=== PATIENT | male | born 1940 | race Caucasian/White ===

== ENCOUNTER 2019-12-01 07:40 | Outpatient (CLI) | payer MEDICARE, OTHER, SELFPAY ==
--- NOTE | 2019-12-01 08:05 | MR_ITS ---
WS: [id number] MRI LUMBAR SPINE NONCONTRAST HISTORY: LOW BACK PAIN COMPARISON: CT abdomen and pelvis 04/26/2016 TECHNIQUE: Sagittal and axial multisequence imaging is submitted. There are 5 nonrib-bearing lumbar vertebral bodies. This correlates with the prior CT from 04/26/2016. Therefore, there may only be 11th thoracic vertebral bodies. There is a chronic fracture previously described at the L1 level. This same numbering pattern will be utilized today. Severe degenerative changes throughout the cervical, thoracic and lumbar spine. C3 anterolisthesis by 4 mm. Component of central cervical stenosis at the C4 level. There is thoracolumbar scoliosis at mu ltiple levels. Advanced degenerative changes throughout the spine. LEFT convex curvature upper thorac ic spine. Mild anterior wedging of T6. Severe chronic compression fracture involving the L1 vertebral body. Superior endplate of T12 is inva ginating into the superior endplate of L1. Biconcave endplates with a vertical fracture through the c entral vertebral body. Retropulsion and posterior bulging by 4.4 mm of the posterior L1 vertebral bod y. L2 retrolisthesis by 4.4 mm and L4 anterolisthesis by 3.1 mm. Severe disc space narrowing and desiccation throughout the lumbar spine. No acute fracture or marrow edema. Conus terminates normally at L1-2 disc level. L1-L2: Posterior bulging of the L1 vertebral body from the remote fracture. No significant compromise upon the thecal sac or conus. Facet joint arthropathy with disc bulging and retropulsion causing mil d bilateral foraminal stenosis. L2-L3: Annular disc bulging and osteophytic ridging. Disc osteophyte encroaching upon the ventral the reyna sac, subarticular recesses and foramen. Mild central and bilateral foraminal stenosis. Moderate s ubarticular recess narrowing. L3-L4: Mild ligamentum flavum disease. Annular disc bulging and small osteophytes. Very mild encroach ment upon the subarticular recesses. L4-L5: Severe facet joint arthritis and ligamentum flavum arthropathy. Annular disc bulging and osteo phytosis. Focal central disc protrusion. Mild central and bilateral foraminal stenosis with moderate subarticular recess stenosis. L5-S1: Annular disc bulging and osteophytic ridging. Small RIGHT paracentral disc protrusion. There i s moderate bilateral foraminal stenosis and subarticular recess stenosis. Infrarenal aortic aneurysm of 3.5 cm. Prior abdominal aneurysm repair. Aneurysm is measuring smaller in size than on the prior study of 04/26/2016. MR/MR lumbar spine wo con* [id number] IMPRESSION: 1. Severe degenerative changes of the cervical, thoracic and lumbar spines. 2. 5 nonrib-bearing lumbar vertebral bodies are identified. This numbering pat tern will be utilized today. 3. Biconcave burst fracture at L1 is chronic. Retropulsion of posterior verteb ral body by 4.4 mm. 4. Multilevel stenoses due to combination of disc and facet disease and osteop hytic ridging. 5. Moderate subarticular recess stenosis at L2-3 and L4-5. 6. Moderate bilateral foraminal subarticular recess stenosis at L5-S1. 7. Mild central and bilateral foraminal stenosis at L2-3 and L4-5 and mild jane ateral foraminal stenosis at L1-2.
--- NOTE | 2019-12-01 08:12 | XR_ITS ---
WS: [id number] LATERAL LUMBAR SPINE: 3 view. Lateral radiographs are performed in upright neutral, flexion and extension to the patient's toleranc e. HISTORY: LOW BACK PAIN COMPARISON: None available. Advanced degenerative changes throughout the lumbar spine. Biconcave fracture in the mid vertebral julio dy of L1 with slight posterior bulging. Posterior bulging better seen on the MRI. L1 retrolisthesis b y 5.2 mm. L4 anterolisthesis by 7.7 mm. L4: Mild instability with flexion and extension. During flexion 10.6 mm anterolisthesis in extension 6.2 mm anterolisthesis. No additional instability. Aortic and iliac artery stent grafts. XR/XR lumbar spine f/e only [id number] IMPRESSION: 1. Advanced degenerative changes throughout the lumbar spine. 2. L4 anterolisthesis by 7.7 mm with flexion and extension instability. 3. Slight retropulsion L1 with no instability. 4. Chronic burst fracture of L1.
== END 2019-12-01 07:41 | disposition home or self-care (01) ==
LOC: RADWPI 07:46
PROVIDERS: Family Provider Family Medicine; PCP Family Medicine; Visit Provider Anesthesiology Pain Medicine
DX: M54.5 Low back pain (principal); S32.011A Stable burst fracture of first lumbar vertebra, initial encounter for closed fracture; X58.XXXA Exposure to other specified factors, initial encounter; M48.061 Spinal stenosis, lumbar region without neurogenic claudication; M25.78 Osteophyte, vertebrae; M51.36 Other intervertebral disc degeneration, lumbar region
CPT/HCPCS: 72120; 72148

== ENCOUNTER 2021-03-07 13:38 | Inpatient (IN) | payer MEDICARE, OTHER, SELFPAY ==
[2021-03-07] VITALS (10 sets, daily range): BP systolic 102–143; BP diastolic 57–95; PULSE 80–132; RESP 18–21; TEMP 36.3–36.4; O2SAT 95–99; BMI 26.6
--- NOTE | 2021-03-07 14:19 | XRR_ITS ---
PROCEDURE INFORMATION: Exam: XR Left Hip Exam date and time: 03/07/2021 2:19 PM Age: 80 years old Clinical indication: Pain and injury or trauma; Fall; Blunt trauma (contusions or hematomas); Hip pain; Left hip; Injury date: 03/07/2012; Additional info: Fall, pain TECHNIQUE: Imaging protocol: XR Left hip. Views: 2 or 3 views hip with pelvis when performed. COMPARISON: CT abdomen pelvis w con* [id number] 04/26/2016 9:10 AM FINDINGS: Bones/joints: There is no fracture or dislocation of the left hip. There is no fracture of the visible left hemipelvis. There are mild degenerative changes of the hip. Soft tissues: Unremarkable. Vasculature: There are vascular surgical clips and an aortoiliac graft. XR/XR hip LT 2-3V wo/w pel* [id number] IMPRESSION: No fracture
--- NOTE | 2021-03-07 14:19 | XRR_ITS ---
PROCEDURE INFORMATION: Exam: XR Chest Exam date and time: 03/07/2021 2:19 PM Age: 80 years old Clinical indication: Injury or trauma; Fall; Shortness of breath; Blunt trauma (contusions or hematomas); Injury date: 03/07/21; Additional info: SOB TECHNIQUE: Imaging protocol: XR of the chest. Views: 1 view. COMPARISON: CR XR ribs LT mn 3V w CXR1V [id number] 03/03/2021 3:45 PM FINDINGS: Lungs: Unremarkable. No consolidation. Pleural spaces: Unremarkable. No pleural effusion. No pneumothorax. Heart/Mediastinum: Unremarkable. No cardiomegaly. Vasculature: The aorta is slightly tortuous. Bones/joints: The left rib fractures reported on rib x-rays are not visualized. XR/XR chest 1V portable [id number] IMPRESSION: No acute findings
--- NOTE | 2021-03-07 14:19 | XRR_ITS ---
PROCEDURE INFORMATION: Exam: XR Left Ribs Exam date and time: 03/07/2021 2:19 PM Age: 80 years old Clinical indication: Pain and injury or trauma; Fall; Rib area, left side; Blunt trauma; Chest wall pain; Injury date: 03/07/21; Additional info: Fall, fractures TECHNIQUE: Imaging protocol: XR Left ribs. Views: 2 views. COMPARISON: CR XR ribs LT mn 3V w CXR1V [id number] 03/03/2021 3:45 PM FINDINGS: Bones/joints: There are fractures of the left 4th to 7th ribs laterally. There is up to 3 mm of displacement. There is a chronic L1 compression fracture. Soft tissues: Normal. XR/XR ribs LT 2V* [id number] IMPRESSION: Acute fractures of the left 4th to 7th ribs
--- NOTE | 2021-03-07 14:20 | ECG_ITS ---
[facility] ED Test Date: 2021-03-07 Pat Name: Brandon Gracia Department: Room: Gender: Male Private Branch Exchange Operator: PREMA : 1940 Requested By: Mayur Montaño Order Number: [id number] Roberta MD: Marina Horne M.D. Measurements Intervals [place] Rate: 92 P: [place]: QRS: -58 QRSD: 102 T: 50 QT: 343 QTc: 426 Interpretive Statements ATRIAL FIBRILLATION LOW QRS VOLTAGE IN EXTREMITY LEADS [QRS DEFLECTION < 0.5 mV IN LIMB LEADS] SEPTAL MYOCARDIAL INFARCTION [40+ ms Q WAVE IN V1/V2], PROBABLY OLD INFERIOR MYOCARDIAL INFARCTION [40+ ms Q WAVE AND/OR ST/T ABNORMALITY IN II/aVF], PROBABLY OLD No previous ECG available for comparison Electronically Signed On 03-10-2021 7:46:54 CDT by Marina Horne M.D. [id number] f
--- NOTE | 2021-03-07 14:23 | ED_ITS ---
HPI - Fall General: Chief Complaint: ER Hold Stated Complaint: FALL ON SUNDAY Time Seen by Provider: 03/07/21 14:00 History of Present Illness: HPI Narrative: Mr. Gracia is an 80-year-old gentleman with significant past medical history of hypertension, diabetes, hyperlipidemia who presents emergency department due to left rib pain and shortness of breath. He has been at his baseline health and had a mechanical fall while attempting to walk down the ramp of an airplane on 03/03. Immediately had left-sided pain. No head strike or loss of consciousness. He denies preceding chest pain, shortness of breath, lightheadedness, dizziness. Fall appears to be strictly mechanical. He was seen at an urgent care and diagnosed with rib fractures. He was not sent home with prescriptions at that time. He subsequently had another mechanical fall where a rolling chair slipped out from behind him, once again no head strike though he did land on his left side and again had pain and left hip pain. He has been able to ambulate but has significant discomfort and overall worsening shortness of breath. He has been trying to sleep in the chair and now has developed leg swelling. Left-sided chest pain is moderate in intensity worse with deep breaths. There is some radiation to the midsternal region. He has associated shortness of breath. He has tried [id number] medications without significant relief. No infectious symptoms reported. No other specific changes in health, exacerbating, or alleviating factors identified Review of Systems General: Reports: 10 or more systems reviewed and unremarkable except in HPI and below Narrative: CONSTITUTIONAL: denies fever, fatigue, weakness EYES - denies pain, denies loss of vision EARS - denies ear issues. NOSE - denies congestion or rhinorrhea. THROAT - denies sore throat or difficulty swallowing. CARDIOVASCULAR -sharp chest pain. No palpitations or frequent chest pain in the past. RESPIRATORY -shortness of breath. No cough GASTROINTESTINAL - denies abdominal pain, no nausea vomiting, no changes in bowel habits GENITOURINARY - denies dysuria or urinary frequency MUSCULOSKELETAL-hip and left rib pain as noted in HPI SKIN - denies rashes or new changed skin lesions NEUROLOGIC - denies focal weakness or sensory changes HEMATOLOGIC/LYMPHATIC - denies easy bruising or lymphadenopathy. [facility] ED [facility]: Medical History (Updated 03/07/21 @ 21:43 by Rosario Nuñez MD) Diabetes mellitus Type 2 Hypertension Neuropathy, idiopathic Primary osteoarthritis of right knee Surgical History (Updated 03/07/21 @ 21:43 by Rosario Nuñez MD) History of AAA (abdominal aortic aneurysm) repair Hx of cholecystectomy Hx of eye surgery right S/P right knee arthroscopy twice by Family History Denies family history of Diabetes CAD (coronary artery disease) Clotting disorder Dementia Hyperlipidemia Psychiatric illness Chronic kidney disease (CKD) Suicide Anesthesia complication Bleeding disorder Family history of premature coronary artery disease Lung disease Cancer Hypertension Stroke Social History Smoking and tobacco status: former smoker Quit status (tobacco): has quit using tobacco Year quit tobacco: 3 years ago;2017 Alcohol intake: never Physical Exam Narrative: EXAM NARRATIVE: GENERAL/CONSTITUTIONAL - well-appearing. No acute distress. Eyes - PERRL, no conjunctival injection ENMT - Atraumatic external nose and ears. Moist mucous membranes NECK - supple. trachea midline CARDIOVASCULAR - regular rate and rhythm. RESPIRATORY -clear to auscultation bilaterally. No retractions or accessory muscle use. CHEST?tenderness palpation without obvious crepitus of the left lateral rib cage ABDOMEN/GI - Nontender/Nondistended. No tenderness to percussion or evidence of peritonitis MSK - Extremities without obvious deformity or tenderness to palpation SKIN - Warm, Dry NEURO - alert and appropriately oriented. strength and sensation intact. Moves all extremities equally. PSYCH - Appropriate mood and affect Course ED course: - Patient was seen and evaluated by me at bedside - Patient placed on cardiac monitors, IV access obtained - Initial evaluation notable for no acute distress, nontoxic appearance. Mild tenderness palpation without definitive crepitus over the left lateral ribs. Patient does have deep breath pain. - Labs notable for minimal leukocytosis, microcytic anemia. Significant metabolic derangements of unclear etiology are present, patient denies any history significant changes in intake or any GI symptoms. - Imaging notable for rib fractures - Upon serial reexamination after treatment the patient was noted to be significantly more ill-appearing. He became tachycardic and at that time rhythm seem to be regular. Given metabolic abnormalities and new ill appearance additional imaging/testing was ordered. - CTA negative for pulmonary realism or obvious lobar consolidation. - The patient subsequently was found to have intermittent atrial fibrillation captured on EKG. He denies history of similar. - Based on patient history, evaluation, labs, and imaging as interpreted the most likely cause of the patient's condition is multiple rib fractures secondary to mechanical trauma, new onset atrial fibrillation intermittent, and electrolyte abnormalities of unclear etiology - The results of ED evaluation were discussed with the patient including plan for admission due to requirement for level of care not available if discharged to prevent significant worsening/deterioration. - Admitting service was contacted and Dr Nuñez with internal medicine hospitalist agreed to admit the patient - Patient was admitted without further deterioration or significant events. Vital Signs: Vital signs: Vital Signs Temperature 97.4 F L 03/07/21 22:25 Pulse Rate 128 H 03/07/21 23:32 Respiratory Rate 21 H 03/07/21 23:26 Blood Pressure 118/95 03/07/21 22:25 Pulse Oximetry 95 03/07/21 23:26 MDM - Fall Medical Records: Attestation: I reviewed the patient's medical records. Lab Data: Attestation: I reviewed the patient's lab results. Labs: Lab Results 03/07/21 03/07/21 03/07/21 Range/Units 13:17 13:17 13:17 WBC 11.2 H (4.0-10.0) 10^3/ uL RBC 4.60 (4.1-5.3) 10^6/u L Hgb 11.2 L (11.7-16.6) g/dL Hct 35.5 L (42.0-52.0) % MCV 77.2 L (80-94) fL MCH 24.3 L (28.0-34.0) pg MCHC 31.5 (30.0-36.0) g/dL RDW 20.0 H (12.1-15.1) % Plt Count 292 (130-400) 10^3/c mm MPV 11.0 H (7.4-10.4) fL Neut % (Auto) 80.2 % Lymph % (Auto) 11.3 % Arthur % (Auto) 6.3 % Eos % (Auto) 0.7 % Baso % (Auto) 0.6 % Neut # (Auto) 8.97 H (1.8-7.7) 10^3/u L Lymph # (Auto) 1.3 (0.8-4.8) 10^3/u L Arthur # (Auto) 0.7 (0.2-0.9) 10^3/u L Eos # (Auto) 0.1 (0.0-0.8) 10^3/u L Baso # (Auto) 0.1 (0.0-0.1) 10^3/u L Nucleated RBC % (a uto) 0 % Nucleated RBCs # 0.0 /100WBC D-Dimer (0-0.59) ug/mIFE U Sodium 140 (136-145) mmol/L Potassium 5.2 H (3.5-5.1) mmol/L Chloride 107 (98-107) mmol/L Carbon Dioxide 13 L (22-29) mmol/L Anion Gap 25.2 H (5-19) BUN 71 H (8-23) mg/dL Creatinine 1.4 H (0.7-1.2) mg/dL GFR Calculation Not Reportable Glucose 112 (65-115) mg/dL Calculated Osmolal ity 312 H (285-295) mOsm/k g Lactate (0.5-2.2) mmol/L Calcium 9.3 (8.5-10.5) mg/dL Total Bilirubin 0.3 (0.15-1.2) mg/dL AST 16 (0-40) U/L ALT 26 (0-41) U/L Alkaline Phosphata se 92 (40-130) IU/L Troponin T Baselin e 23 H (0-15) ng/L Troponin T 120 Min [place] (0-15) ng/L Delta Troponin T (0-10) ABS# NT-Pro-B Natriuret Pep (0-450) pg/mL Total Protein 6.4 L (6.6-8.7) g/dL Albumin 4.0 (3.5-5.2) g/dL Globulin 2.4 (1.3-4.6) g/dL Procalcitonin (0-0.5) ng/mL SARS-CoV-2 Ag (Rap id) (Negative) 03/07/21 03/07/21 03/07/21 Range/Units 13:17 16:12 16:12 WBC (4.0-10.0) 10^3/ uL RBC (4.1-5.3) 10^6/u L Hgb (11.7-16.6) g/dL Hct (42.0-52.0) % MCV (80-94) fL MCH (28.0-34.0) pg MCHC (30.0-36.0) g/dL RDW (12.1-15.1) % Plt Count (130-400) 10^3/c mm MPV (7.4-10.4) fL Neut % (Auto) % Lymph % (Auto) % Arthur % (Auto) % Eos % (Auto) % Baso % (Auto) % Neut # (Auto) (1.8-7.7) 10^3/u L Lymph # (Auto) (0.8-4.8) 10^3/u L Arthur # (Auto) (0.2-0.9) 10^3/u L Eos # (Auto) (0.0-0.8) 10^3/u L Baso # (Auto) (0.0-0.1) 10^3/u L Nucleated RBC % (a uto) % Nucleated RBCs # /100WBC D-Dimer (0-0.59) ug/mIFE U Sodium (136-145) mmol/L Potassium (3.5-5.1) mmol/L Chloride (98-107) mmol/L Carbon Dioxide (22-29) mmol/L Anion Gap (5-19) BUN (8-23) mg/dL Creatinine (0.7-1.2) mg/dL GFR Calculation Glucose (65-115) mg/dL Calculated Osmolal ity (285-295) mOsm/k g Lactate (0.5-2.2) mmol/L Calcium (8.5-10.5) mg/dL Total Bilirubin (0.15-1.2) mg/dL AST (0-40) U/L ALT (0-41) U/L Alkaline Phosphata se (40-130) IU/L Troponin T Baselin e (0-15) ng/L Troponin T 120 Min [place] 22.27 H (0-15) ng/L Delta Troponin T -0.73 L (0-10) ABS# NT-Pro-B Natriuret Pep 747 H (0-450) pg/mL Total Protein (6.6-8.7) g/dL Albumin (3.5-5.2) g/dL Globulin (1.3-4.6) g/dL Procalcitonin 0.16 (0-0.5) ng/mL SARS-CoV-2 Ag (Rap id) (Negative) 03/07/21 03/07/21 03/07/21 Range/Units 17:30 17:35 17:35 WBC (4.0-10.0) 10^3/ uL RBC (4.1-5.3) 10^6/u L Hgb (11.7-16.6) g/dL Hct (42.0-52.0) % MCV (80-94) fL MCH (28.0-34.0) pg MCHC (30.0-36.0) g/dL RDW (12.1-15.1) % Plt Count (130-400) 10^3/c mm MPV (7.4-10.4) fL Neut % (Auto) % Lymph % (Auto) % Arthur % (Auto) % Eos % (Auto) % Baso % (Auto) % Neut # (Auto) (1.8-7.7) 10^3/u L Lymph # (Auto) (0.8-4.8) 10^3/u L Arthur # (Auto) (0.2-0.9) 10^3/u L Eos # (Auto) (0.0-0.8) 10^3/u L Baso # (Auto) (0.0-0.1) 10^3/u L Nucleated RBC % (a uto) % Nucleated RBCs # /100WBC D-Dimer 1.26 H (0-0.59) ug/mIFE U Sodium (136-145) mmol/L Potassium (3.5-5.1) mmol/L Chloride (98-107) mmol/L Carbon Dioxide (22-29) mmol/L Anion Gap (5-19) BUN (8-23) mg/dL Creatinine (0.7-1.2) mg/dL GFR Calculation Glucose (65-115) mg/dL Calculated Osmolal ity (285-295) mOsm/k g Lactate 1.0 (0.5-2.2) mmol/L Calcium (8.5-10.5) mg/dL Total Bilirubin (0.15-1.2) mg/dL AST (0-40) U/L ALT (0-41) U/L Alkaline Phosphata se (40-130) IU/L Troponin T Baselin e (0-15) ng/L Troponin T 120 Min [place] (0-15) ng/L Delta Troponin T (0-10) ABS# NT-Pro-B Natriuret Pep (0-450) pg/mL Total Protein (6.6-8.7) g/dL Albumin (3.5-5.2) g/dL Globulin (1.3-4.6) g/dL Procalcitonin (0-0.5) ng/mL SARS-CoV-2 Ag (Rap id) Negative (Negative) EKG Data^: EKG 1: EKG interpretation date: 03/07/21 EKG interpretation time: 14:39 Prior EKG tracings: not available for review Ischemic changes: non-specific ST-T wave changes Interpretation: Twelve-lead EKG shows a irregular rhythm at a rate of 92 Due to irregular rhythm TN interval not available Mild left axis deviation Interpretation: Atrial fibrillation or sinus arrhythmia EKG 2: Attestation: I personally reviewed and interpreted this EKG as follows: EKG interpretation date: 03/07/21 EKG interpretation time: 17:55 Prior EKG tracings: available for review Interpretation: Twelve-lead EKG shows a regular sinus rhythm with limited interpretation secondary to baseline TN interval varies though calculated at 223 Left axis deviation Interpretation: Sinus rhythm with prolonged TN interval. EKG 3: Attestation: I personally reviewed and interpreted this EKG as follows: EKG interpretation date: 03/07/21 EKG interpretation time: 19:08 Prior EKG tracings: available for review Ischemic changes: non-specific ST-T wave changes Interpretation: Twelve-lead EKG shows an irregular rhythm at a rate of 122 and atrial fibrillation TN interval not calculated secondary to rhythm Left axis deviation. Interpretation: Atrial fibrillation Discharge Plan Discharge Patient Disposition: Admitted As Inpatient Admit Provider: Rosario Nuñez Clinical Impression: Multiple rib fractures, Abnormal blood electrolyte level, Atrial fibrillation, transient Condition: Stable Coding Level of Care Code ED Printed [employer] Boards Stripper Etcher for Chg Fwd
[2021-03-07] MEDS: acetaminophen 325 mg Tablet 650 MG PO (14:41)
[2021-03-07] MEDS: lidocaine 5% Patch 1 PATCH TOPICAL (14:41)
[2021-03-07 15:30] LABS: Basophils # 0.1 10^3/uL (0.0-0.1); Basophils % 0.6 %; Eosinophils # 0.1 10^3/uL (0.0-0.8); Eosinophils % 0.7 %; Hematocrit 35.5 % (42.0-52.0); Hemoglobin 11.2 g/dL (11.7-16.6); Lymphocytes # 1.3 10^3/uL (0.8-4.8); Lymphocytes % 11.3 %; Mean Corpuscular HGB Conc 31.5 g/dL (30.0-36.0); Mean Corpuscular Hemoglobin 24.3 pg (28.0-34.0); Mean Corpuscular Volume 77.2 fL (80-94); Monocytes # 0.7 10^3/uL (0.2-0.9); Monocytes % 6.3 %; Neutrophils # 8.97 10^3/uL (1.8-7.7); Neutrophils % 80.2 %; Nucleated Red Blood Cells % 0 %; Platelet Count 292 10^3/cmm (130-400); White Blood Count 11.2 10^3/uL (4.0-10.0)
[2021-03-07 15:34] LABS: Alanine Aminotransferase 26 U/L (0-41); Alkaline Phosphatase 92 IU/L (40-130); Aspartate Amino Transferase 16 U/L (0-40); Blood Urea Nitrogen 71 mg/dL (8-23); Calcium 9.3 mg/dL (8.5-10.5); Carbon Dioxide 13 mmol/L (22-29); Chloride 107 mmol/L (98-107); Globulin 2.4 g/dL (1.3-4.6); Glucose 112 mg/dL (65-115); Total Bilirubin 0.3 mg/dL (0.15-1.2); Total Protein 6.4 g/dL (6.6-8.7); Troponin(5th) Baseline 23 ng/L (0-15)
[2021-03-07 15:39] LABS: Anion Gap 25.2 (5-19); Osmolality Calculated 312 mOsm/kg (285-295); Potassium 5.2 mmol/L (3.5-5.1)
[2021-03-07 15:55] LABS: Sodium 140 mmol/L (136-145)
--- NOTE | 2021-03-07 16:20 | ECG_ITS ---
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 Measurements Intervals [place] Rate: 121 P: [place]: QRS: -52 QRSD: 100 T: 62 QT: 305 QTc: 434 Interpretive Statements ATRIAL FIBRILLATION WITH RAPID VENTRICULAR RESPONSE MARKED LEFT AXIS DEVIATION [QRS AXIS < -30] SEPTAL MYOCARDIAL INFARCTION [40+ ms Q WAVE IN V1/V2], OF INDETERMINATE AGE Compared to ECG 03/07/2021 17:44:47 Left-axis deviation now present Myocardial infarct finding now present Sinus rhythm no longer present First degree AV block no longer present Electronically Signed On 03-10-2021 10:06:16 CDT by Marina Horne M.D. [id number]
[2021-03-07 16:55] LABS: Troponin 5 2HR 22.27 ng/L (0-15)
[2021-03-07 16:58] LABS: Troponin 5 2HR Delta -0.73 ABS# (0-10)
[2021-03-07 17:23] LABS: NT Pro B Type Natriuretic Pept 747 pg/mL (0-450)
[2021-03-07] MEDS: sodium chloride 0.9% 1,000 ML 125 ML IV (17:26)
[2021-03-07] MEDS: morphine 4 mg/mL SDV 1 mL IV (17:26)
--- NOTE | 2021-03-07 17:35 | CTR_ITS ---
PROCEDURE INFORMATION: Exam: CTA Chest With Contrast Exam date and time: 03/07/2021 5:35 PM Age: 80 years old Clinical indication: Cough and shortness of breath; Additional info: Trauma on , shortness of breath, tachycardia TECHNIQUE: Imaging protocol: Computed tomographic angiography of the chest with contrast. 3D rendering (Not supervised by radiologist): MIP and/or 3D reconstructed images were created by the technologist. Radiation optimization: All CT scans at this facility use at least one of these dose optimization techniques: automated exposure control; mA and/or kV adjustment per patient size (includes targeted exams where dose is matched to clinical indication); or iterative reconstruction. Contrast material: VISI 320; Contrast volume: 75 ml; Contrast route: INTRAVENOUS (IV); COMPARISON: CR XR chest 1V portable [id number] 03/07/2021 2:55 PM RADIATION DOSE METRICS: Total DLP (mGy-cm): 588.85 FINDINGS: Pulmonary arteries: No evidence of pulmonary artery emboli. Aorta: No evidence of thoracic aortic aneurysm or dissection. Thyroid: Moderate thyromegaly. Lungs: There is centrilobular emphysema. No lung consolidation or contusion. Pleural spaces: No pneumothorax. Heart: Unremarkable. No cardiomegaly. No pericardial effusion. Mediastinal space: No pneumomediastinum. No evidence of mediastinal hematoma. Lymph nodes: Unremarkable. No enlarged lymph nodes. Bones/joints: There are fractures of the left 4th, 5th and 6th ribs anteriorly laterally. There is a severe chronic compression fracture of L1. There is mild anterior compression of T7 which also appears chronic. No evidence to indicate acute compression fracture. Soft tissues: Unremarkable. CT/CT angio chest prot [id number] IMPRESSION: 1. Acute fractures of the left 4th to 6th ribs anteriorly laterally. 2. No intrathoracic injury Radiation Dose CTDIVOL = (mGy): DLP = 588.85 (mGy-cm)
[2021-03-07 18:04] LABS: Procalcitonin 0.16 ng/mL (0-0.5)
[2021-03-07 18:15] LABS: SARS Covid-2 Antigen Negative (Negative)
[2021-03-07 18:21] LABS: D Dimer 1.26 ug/mIFEU (0-0.59)
[2021-03-07] MEDS: iodixanol 320 mg/mL 100mL Btl IV (18:29)
--- NOTE | 2021-03-07 21:41 | CTR_ITS ---
PROCEDURE INFORMATION: Exam: CT Head Without Contrast Exam date and time: 03/07/2021 9:41 PM Age: 80 years old Clinical indication: Injury or trauma; Fall; Blunt trauma (contusions or hematomas); Additional info: Recurrent falls x 1 week TECHNIQUE: Imaging protocol: Computed tomography of the head without contrast. Radiation optimization: All CT scans at this facility use at least one of these dose optimization techniques: automated exposure control; mA and/or kV adjustment per patient size (includes targeted exams where dose is matched to clinical indication); or iterative reconstruction. COMPARISON: No relevant prior studies available. RADIATION DOSE METRICS: Total DLP (mGy-cm): 945.28 FINDINGS: Brain: There is volume loss. There is white matter lucency consistent with chronic microvascular disease. There is no evidence of acute infarct. There is no hemorrhage or extra-axial collection. Cerebral ventricles: There is no hydrocephalus. Paranasal sinuses: Visualized sinuses are unremarkable. No fluid levels. Mastoid air cells: Visualized mastoid air cells are well aerated. Bones/joints: Unremarkable. No acute fracture. Soft tissues: Unremarkable. CT/CT head wo con* [id number] IMPRESSION: No intracranial injury or lesion Radiation Dose CTDIVOL = (mGy): DLP = 945.28 (mGy-cm)
--- NOTE | 2021-03-07 21:42 | P.HP_ITS ---
Providers/Chief Complaint Admitting Physician: Rosario Nuñez MD Primary Care Provider: Mil Veronica MD Chief Complaint: FALL ON SUNDAY History of Present Illness Brandon Gracia is a 80 year old male with PMH HTN, DM, sustained a mechanical fall one week ago while trying to board an airplane due to absence of handrails. Developed left chest pain thereafter for which he visited local urgent care and diagnosed with rib fracture, on conservative management. Thereafter upon his return on , while at his office he sustained another fall. States he got up from his chair, went to a counter nearby, started to fall backwards (attributes again to mechanical factors), missed his chair and landed on the floor. Was on the floor for 4-5 hrs per his estimate. Called EMS, decided not to come to hospital as felt better once EMS placed him back in his chair. However since then has had increasing discomfort over his left hip. Uses walker at baseline, still able to walk with walker but pain is poorly controlled. Presented to ER today when both chest pain and hip pain became worse. No back pain. CTA chest ruled out PE. No fractures noted on X ray of hip. Incidentally noted to have A fib with RVR, HR 120s. denies chest pain, palpitations, syncope. LE swelling +, L >R, patient states this is new Review of Systems General: Reports: 10 or more systems reviewed and unremarkable except in HPI and below Const: Denies: fever(s), chills or body aches Eyes: Denies: change in vision, blurry vision or photophobia ENMT: Reports: hoarseness; Denies: throat pain, enlarged tonsils, odynophagia or nasal congestion Card: Denies: chest pain, palpitations, irregular heart rhythm, edema, swelling of feet/ankles, lightheadedness, pre-syncope, dyspnea on exertion or orthopnea Resp: Denies: dyspnea, productive cough, non-productive cough, wheezing, stridor, pain on inspiration, change in phlegm color, hemoptysis or chest congestion GI: Denies: abdominal pain, nausea, vomiting, hematemesis, coffee ground emesis, dysphagia, heartburn, diarrhea, constipation, GI cramping, change in stool character, hematochezia or melena : Denies: flank pain, dysuria, urinary frequency, urinary urgency, urinary hesitancy or hematuria Musc: Denies: neck pain, back pain, extremity pain, joint swelling, joint warmth or deformity Neuro: Denies: headache(s), numbness in extremities, weakness in extremities, sensory changes, difficulty walking, frequent falls, dizziness, vertigo, behavioral changes, Slurred speech present or seizure-like activity Psych: Denies: anxiety, depression, suicidal ideation or homicidal ideation Endo: Denies: polyuria, polydipsia, tired all the time, cold intolerance or hot flashes Rafael/Lymph: Denies: easy bruising or easy bleeding Medications/Allergies Home Medications Medication Instructions Recorded Confirmed Last Taken Type bimatoprost 0.01 % eye drops 1 drop OPHTHALMIC (EYE) DAILY 08/12/19 03/07/21 03/06/21 History lisinopril 30 mg tablet 30 mg PO DAILY 08/12/19 03/07/21 03/06/21 History metformin 500 mg tablet 500 mg PO BID 08/12/19 03/07/21 03/06/21 History spironolactone 25 mg tablet 25 mg PO DAILY 08/12/19 03/07/21 03/06/21 History umeclidinium 62.5 mcg-vilanterol 1 inh INHALATION Q24H 08/12/19 03/07/21 03/06/21 History 25 mcg/actuation powdr for inhalation acetaminophen [Tylenol] 325 mg PO QID PRN 03/07/21 03/07/21 Unknown History ascorbic acid (vitamin C) [Vitamin 1,000 mg PO DAILY 03/07/21 03/07/21 03/03/21 History C] cholecalciferol (vitamin D3) 25 mcg PO DAILY 03/07/21 03/07/21 03/03/21 History [Vitamin D3] cyanocobalamin (vitamin B-12) 1,000 mcg PO DAILY 03/07/21 03/07/21 03/03/21 History [Vitamin B-12] ferrous sulfate [Iron (ferrous 325 mg PO DAILY 03/07/21 03/07/21 03/03/21 History sulfate)] gabapentin 300 mg PO QID 03/07/21 03/07/21 03/06/21 History hydrocodone-acetaminophen 1 tab PO Q8H PRN 03/07/21 03/07/21 Unknown History ibuprofen 200 mg PO Q4H PRN 03/07/21 03/07/21 03/07/21 History ibuprofen-diphenhydramine cit 1 - 2 tab PO BEDTIME PRN 03/07/21 03/07/21 Unknown History [Advil PM] ckhmoqngajll-zmxefbbn-qrzgfu 1 tab PO DAILY 03/07/21 03/07/21 03/03/21 History [Multivitamin 50 Plus] naproxen sodium [Aleve] 220 mg PO Q8H PRN 03/07/21 03/07/21 Unknown History pravastatin 40 mg PO DAILY 03/07/21 03/07/21 03/06/21 History vitamins A,C,S-fsit-spxrmd 2 tab PO BID 03/07/21 03/07/21 03/03/21 History [PreserVision AREDS] Allergies Allergy/AdvReac Type Severity Reaction Status Date / Time No Known Allergies Allergy Verified 08/13/19 08:13 PFSH Acute PFSH: Medical History (Updated 03/08/21 @ 07:14 by Rosario Nuñez MD) COPD (chronic obstructive pulmonary disease) Diabetes mellitus Type 2 Hypertension Neuropathy, idiopathic Primary osteoarthritis of right knee Surgical History History of AAA (abdominal aortic aneurysm) repair Hx of cholecystectomy Hx of eye surgery right S/P right knee arthroscopy twice by Family History Denies family history of Diabetes CAD (coronary artery disease) Clotting disorder Dementia Hyperlipidemia Psychiatric illness Chronic kidney disease (CKD) Suicide Anesthesia complication Bleeding disorder Family history of premature coronary artery disease Lung disease Cancer Hypertension Stroke Social History Smoking and tobacco status: former smoker Quit status (tobacco): has quit using tobacco Year quit tobacco: 3 years ago;2017 Alcohol intake: never Vitals/I&O/Wt Last Vital Signs Temp 97.6 F 03/07/21 14:02 Pulse 86 03/07/21 20:41 Resp 18 03/07/21 20:41 BP 143/90 03/07/21 20:41 Pulse Ox 97 03/07/21 20:41 Weight last 48 hrs Weight 77.111 kg Physical Exam Narrative: EXAM NARRATIVE: General: No acute distress, AO x3 HEENT: PERRLA, pupils bilaterally equal and reactive, pallors not present Chest: Scattered wheezing B/L CVS: S1-S2 regular, no murmurs, no tachycardia, no gallops, no rubs Abdomen: Soft, nontender, no organomegaly, bowel sounds present Neuro: No focal deficits, no facial deformity, AO x3, power 5/5 in all limbs Extremities: B/L Le edema L> R Data : 03/08/21 04:21 03/08/21 04:21 A&P Assessment and plan (1) Multiple rib fractures: prn morphine, percocet , lidocaine patch for pain control CTA without pneumothorax or underlying pneumonia incentive spiromtery Status: Acute Qualifiers: Encounter type: initial encounter Fracture type: closed Laterality: left Qualified Code(s): S22.42XA - Multiple fractures of ribs, left side, initial encounter for closed fracture (2) Atrial fibrillation with RVR: new onset per history start metoprolol 12.5mg BID, titrate per response Anticoagulation after ascertaining fall risk, PT assessment echocardiogram troponin series with negative delta Status: Acute (3) Left hip pain: after mechanical fall no fractures on X ray Status: Acute (4) Recurrent falls: Appear to be mechanical per history Patient denies any headache, visual changes, chest pain, palpitations or syncope However given new A fib, cannot r/o underlying arrhythmias as the cause Telemetry monitoring echo as above Status: Acute Additional A&P Information # COPD: not currently exacerbated , duonebs q4h # B/L LE swelling , L>R, elevated d dimer, recent airline travel, no fractures on x ray hip raise suspicion also for possible DVT, check LE doppler. Alternatively swelling may be related to decompensated heart failure from A fib with RVR Lasix 20mg iv once ,, monitor urine output , D/c IVF , echo as above Full code DVt ppx: lovenox vaccinated for Covid 19 Attestations Medical Necessity Statement*: ancticipate >2middnight for above defined care Coding Level of Care Code Acute Plastic Straightening Roll Operator for Chg Fwd Diagnoses Multiple rib fractures S22.42XA Encounter type: initial encounter Fracture type: closed Laterality: left Atrial fibrillation with RVR I48.91 Left hip pain M25.552 Recurrent falls R29.6
--- NOTE | 2021-03-07 21:58 | PC.NURSE ---
Report to Janice MENDOZA on CSU
[2021-03-07] MEDS: oxyCODONE-APAP 5-325 mg Tablet 1 TAB PO (22:33)
[2021-03-07] MEDS: enoxaparin 40 mg/0.4 mL Syringe SUBCUT (22:33)
[2021-03-07] MEDS: sodium chloride 0.9% 1,000 ML 75 ML IV (22:34)
--- NOTE | 2021-03-07 22:43 | PC.NURSE ---
Report received from Luz MENDOZA in ED. patient is A & O. Has C/O of severe pain in his left hip and ribcage. Patient voices no other needs at this time.
[2021-03-07 23:20] LABS: Creatine Phosphokinase 69 U/L (39-308)
[2021-03-07 23:21] LABS: Anion Gap 22.4 (5-19); Blood Urea Nitrogen 57 mg/dL (8-23); Carbon Dioxide 13 mmol/L (22-29); Chloride 106 mmol/L (98-107); Glucose 110 mg/dL (65-115); Osmolality Calculated 300 mOsm/kg (285-295); Potassium 4.4 mmol/L (3.5-5.1); Sodium 137 mmol/L (136-145)
[2021-03-07] MEDS: morphine 4 mg/mL SDV 1 mL 2 MG IVP (23:26)
[2021-03-08] VITALS (14 sets, daily range): BP systolic 89–133; BP diastolic 65–86; PULSE 89–134; RESP 12–20; TEMP 36.6–37.1; O2SAT 93–97
[2021-03-08 01:30] LABS: Add Urine Microscopic? YES; Bilirubin Urine Neg (Negative); Blood Urine Neg (Negative); Glucose Urine UA Norm (Normal); Ketones Urine 1+ (Negative); Leukocyte Esterase Urine Negative (Negative); Nitrate Urine Positive (Negative); Protein Urine Neg (Negative); Specific Gravity, Urine 1.015 (1.005-1.030); Urine Appearance SL Hazy (CLEAR); Urine Color Yellow (Yellow); Urobilinogen Urine Norm (Negative); pH Urine 5 (5-7)
[2021-03-08 01:34] LABS: Add Urine Culture? Yes; Bacteria Urine 3+ /hpf; RBC Urine 0-4 /hpf (0-2); Squamous Epithelial Cell Urine 0-4 /hpf (0-5); Transitional Epi Cells Urine 0-4 /hpf; WBC Urine 40-55 /hpf (0-5)
--- NOTE | 2021-03-08 01:43 | PC.NURSE ---
Addendum entered by Denis Flynn RN 03/08/21 01:53: VORB to give Oxy 1 hour early and administered Metoprolol 12.5 mg. will continue to monitor and notify Dr. Nuñez of HR. Original Note: Patient's HR has been in the 120's -130's this evening. Dr. Nuñez notified. Awaiting further orders.
[2021-03-08] MEDS: metoprolol tartrate 25 mg Tablet 12.5 MG PO ×3 (01:49→20:36)
[2021-03-08] MEDS: oxyCODONE-APAP 5-325 mg Tablet 1 TAB PO ×3 (01:50→18:43)
[2021-03-08] MEDS: morphine 4 mg/mL SDV 1 mL 2 MG IVP (04:17)
[2021-03-08 04:37] LABS: Basophils # 0.1 10^3/uL (0.0-0.1); Basophils % 0.7 %; Eosinophils # 0.2 10^3/uL (0.0-0.8); Hematocrit 34.7 % (42.0-52.0); Hemoglobin 10.7 g/dL (11.7-16.6); Lymphocytes # 2.3 10^3/uL (0.8-4.8); Lymphocytes % 19.7 %; Mean Corpuscular HGB Conc 30.8 g/dL (30.0-36.0); Mean Corpuscular Hemoglobin 24.2 pg (28.0-34.0); Mean Corpuscular Volume 78.3 fL (80-94); Mean Platelet Volume 10.2 fL (7.4-10.4); Monocytes % 8.9 %; Neutrophils # 7.82 10^3/uL (1.8-7.7); Neutrophils % 67.9 %; Nucleated Red Blood Cells % 0 %; Platelet Count 279 10^3/cmm (130-400); Red Blood Count 4.43 10^6/uL (4.1-5.3); Red Cell Distribution Width 19.9 % (12.1-15.1); White Blood Count 11.5 10^3/uL (4.0-10.0)
[2021-03-08 05:09] LABS: Alanine Aminotransferase 22 U/L (0-41); Albumin Level 3.8 g/dL (3.5-5.2); Alkaline Phosphatase 84 IU/L (40-130); Anion Gap 19.8 (5-19); Aspartate Amino Transferase 14 U/L (0-40); Blood Urea Nitrogen 55 mg/dL (8-23); Calcium 9.3 mg/dL (8.5-10.5); Carbon Dioxide 16 mmol/L (22-29); Chloride 110 mmol/L (98-107); Globulin 2.6 g/dL (1.3-4.6); Glucose 110 mg/dL (65-115); Osmolality Calculated 308 mOsm/kg (285-295); Potassium 4.8 mmol/L (3.5-5.1); Sodium 141 mmol/L (136-145); Thyroid Stimulating Hormone 1.43 uIU/mL (0.27-4.20); Total Bilirubin 0.3 mg/dL (0.15-1.2); Total Protein 6.4 g/dL (6.6-8.7)
--- NOTE | 2021-03-08 06:10 | PC.NURSE ---
Shift Note Frequent safety and comfort rounds continue. Orders and/or nursing care completed as indicated. Patient monitored for response to intervention and treatment(s). Education provided includes medication information on metoprolol, the importance of holding his stomach with his arms or a pillow when he coughs, asking for assistance when getting out of bed. Patient and/or residential sales representative verbalizes understanding. Will continue to monitor.
[2021-03-08 07:47] LABS: Glucose Point of Care 130 mg/dL (70-110)
[2021-03-08] MEDS: FUROsemide 10 mg/mL SDV 2mL 20 MG IVP (07:49)
[2021-03-08] MEDS: lidocaine 5% Patch 1 PATCH TOPICAL (09:20)
[2021-03-08] MEDS: lisinopril 20 mg Tablet 30 MG PO (09:20)
[2021-03-08] MEDS: gabapentin 300 mg Capsule PO ×4 (09:21→20:37)
[2021-03-08] MEDS: pantoprazole DR 40 mg Tablet PO (09:21)
[2021-03-08] MEDS: spironolactone 25 mg Tablet PO (09:21)
[2021-03-08 14:14] LABS: Coronavirus Test Green County Not Detected
--- NOTE | 2021-03-08 15:23 | P.PN_ITS ---
Subjective Subjective: Interval history: 80-year-old male with a past medical history significant for hypertension, hyperlipidemia, abdominal aortic aneurysm status post repair, chronic obstructive pulmonary disease, diabetes mellitus, recent fall with rib fracture, who presented to the hospital with chest pain.Laboratory workup on arrival showed a WBC of 11.2, hemoglobin of 11.2, hematocrit 35.5 and a platelet count of 292. D-dimer of 1.26. Sodium 137, potassium 4.4, chloride 106, bicarb 13, BUN 57 and creatinine of 1.1. LFTs within normal limits. Troponin T of 23, 22.2. ProBNP of 747. Procalcitonin of 0.16.Urinalysis showed positive nitrites, 40 to 55 abcs and 3+ bacteria. COVID-19 antigen was negative. PCR was also negative.Imaging studies included chest x-ray which did not show any acute abnormality.Pelvic/ hip x-ray was negative.X-ray of ribs showed acute fracture of left 4th to 7th ribs. Up to 3 mm of displacement. Incidentally also noted a chronic L1 compression fracture.CTA chest showed again acute fractures of 4 to 6 rib however also noted to have mild anterior compression of T7 which appeared to be chronic.Head CT without contrast was also negative.Upon arrival patient was noted to have atrial fibrillation with rapid ventricular response.Patient was started on metoprolol 12.5 mg b.i.d. patient briefly reverted to normal sinus rhythm however again converted back to atrial fibrillation. Was started on Cardizem 30 mg oral q.6 hours. Echocardiogram was ordered however pending. also patient was started on Rocephin 2 g IV Q 24 hour for suspected UTI based on urinalysis showing nitrates, WBC and bacteria Medications: Reviewed: Yes Vitals/I&O/Wt Last Vital Signs Temp 98.6 F 03/08/21 08:00 Pulse 133 H 03/08/21 08:05 Resp 16 03/08/21 09:20 BP 133/86 03/08/21 08:00 Pulse Ox 94 03/08/21 09:20 03/08/21 03/08/21 03/08/21 06:59 14:59 22:59 Intake Total 1150 / 1150 Output Total 300 / 300 Balance 850 / 850 Weight last 48 hrs Weight 77.111 kg Physical Exam Narrative: EXAM NARRATIVE: General-Alert awake and oriented HEENT-grossly unremarkable CVS-Irregularly irregular rhythm Chest-nonlabored respiration Abdomen-soft nontender nondistended Extremities-no edema Data : 03/08/21 04:21 03/08/21 04:21 A&P Assessment and plan (1) Atrial fibrillation with RVR: Status: Acute (2) Multiple rib fractures: Status: Acute Qualifiers: Encounter type: initial encounter Fracture type: closed Laterality: left Qualified Code(s): S22.42XA - Multiple fractures of ribs, left side, initial encounter for closed fracture Additional A&P Information Mechanical fall with multiple left rib fractures Pain control Fall precautions PT/OT consultation Atrial fibrillation with rapid ventricular response No prior history noted ECHO pending Eliquis 5 mg PO BID Metoprolol 12.5 mg PO BID Cardizem 30 mg PO Q6h added Consider cardiology consult Suspected Urinary tract infection UA +nitrites, WBC, Bacteria Follow up on urine culture Rocephin 2g IV q24hr Hypertension Medication as noted above Dyslipidemia Lipitor 20 mg PO daily Diabetes mellitus Sliding scale insulin COPD Stable w/o exacerbation Duoneb q6hr PRN Supplemental o2 as needed. DVT ppx Eliquis as noted above Gi ppx Protonix 40 mg PO daily Attestations Medical Necessity Statement*: Require further hospitalization for management of atrial fibrillation requiring adjustment of multiple cardiac medications. Time Spent in Patient Care: Greater than 35 minutes (>than 50% of time spent in counselling and/or direct pt care on unit) . Coding Level of Care Code Acute Stick Puller for Lloyd Solis Diagnoses Atrial fibrillation with RVR I48.91 Multiple rib fractures S22.42XA Encounter type: initial encounter Fracture type: closed Laterality: left
[2021-03-08] MEDS: dilTIAZem 30 mg Tablet PO ×2 (15:38→20:35)
[2021-03-08 16:38] LABS: Glucose Point of Care 130 mg/dL (70-110)
[2021-03-08 16:43] LABS: Glucose Point of Care 119 mg/dL (70-110)
[2021-03-08] MEDS: cefTRIAXone 2,000 MG in sodium chloride 0.9% (plus) 100 ML 200 MG IV (17:36)
--- NOTE | 2021-03-08 18:03 | PC.NURSE ---
Shift Note Frequent safety and comfort rounds continue. Orders and/or nursing care completed as indicated. Patient monitored for response to intervention and treatment(s). Education provided includes information regarding atrial fibrillation and treatment plan. Patient and/or telesales representative receptive to education and verbalizes understanding. Will continue to monitor.
[2021-03-08 20:22] LABS: Glucose Point of Care 191 mg/dL (70-110)
[2021-03-08] MEDS: apixaban 5 mg Tablet PO (20:35)
[2021-03-08] MEDS: atorvastatin 40 mg Tablet 20 MG PO (20:35)
[2021-03-09] VITALS (12 sets, daily range): BP systolic 81–111; BP diastolic 52–70; PULSE 96–136; RESP 14–23; TEMP 36.4–36.6; O2SAT 90–97
--- NOTE | 2021-03-09 03:28 | PC.NURSE ---
Shift Note Frequent safety and comfort rounds continue. Orders and/or nursing care completed as indicated. Patient monitored for response to intervention and treatment(s). Education provided includes information on atrial fibrillation, signs and symptoms. Patient verbalized understanding. All VS and assessments as charted. Will continue to monitor.
[2021-03-09] MEDS: dilTIAZem 30 mg Tablet PO (03:51)
[2021-03-09 05:09] LABS: Basophils # 0.1 10^3/uL (0.0-0.1); Basophils % 0.7 %; Eosinophils # 0.2 10^3/uL (0.0-0.8); Hematocrit 34.3 % (42.0-52.0); Hemoglobin 10.8 g/dL (11.7-16.6); Lymphocytes # 2.2 10^3/uL (0.8-4.8); Mean Corpuscular HGB Conc 31.5 g/dL (30.0-36.0); Mean Corpuscular Hemoglobin 24.5 pg (28.0-34.0); Mean Corpuscular Volume 77.8 fL (80-94); Mean Platelet Volume 10.4 fL (7.4-10.4); Monocytes # 0.9 10^3/uL (0.2-0.9); Monocytes % 8.3 %; Neutrophils % 66.9 %; Nucleated Red Blood Cells % 0 %; Platelet Count 267 10^3/cmm (130-400); Red Blood Count 4.41 10^6/uL (4.1-5.3); Red Cell Distribution Width 20.1 % (12.1-15.1); White Blood Count 10.3 10^3/uL (4.0-10.0)
[2021-03-09 05:57] LABS: Alanine Aminotransferase 19 U/L (0-41); Albumin Level 3.7 g/dL (3.5-5.2); Alkaline Phosphatase 78 IU/L (40-130); Anion Gap 16.4 (5-19); Aspartate Amino Transferase 11 U/L (0-40); Blood Urea Nitrogen 47 mg/dL (8-23); Calcium 9.5 mg/dL (8.5-10.5); Carbon Dioxide 18 mmol/L (22-29); Chloride 113 mmol/L (98-107); Globulin 2.7 g/dL (1.3-4.6); Glucose 120 mg/dL (65-115); Osmolality Calculated 309 mOsm/kg (285-295); Potassium 4.4 mmol/L (3.5-5.1); Sodium 143 mmol/L (136-145); Total Bilirubin 0.2 mg/dL (0.15-1.2); Total Protein 6.4 g/dL (6.6-8.7)
[2021-03-09] MEDS: oxyCODONE-APAP 5-325 mg Tablet 1 TAB PO (06:40)
[2021-03-09 07:20] LABS: Glucose Point of Care 128 mg/dL (70-110)
[2021-03-09] MEDS: ipratropium-albuterol 3 mL Neb INHALATION ×2 (08:06→21:55)
[2021-03-09] MEDS: metoprolol succinate ER (24 HR) 25 mg Tablet PO (09:27)
[2021-03-09] MEDS: pantoprazole DR 40 mg Tablet PO (09:27)
[2021-03-09] MEDS: apixaban 5 mg Tablet PO ×2 (09:27→21:29)
[2021-03-09] MEDS: gabapentin 300 mg Capsule PO ×4 (09:29→21:30)
[2021-03-09] MEDS: lidocaine 5% Patch 1 PATCH TOPICAL (09:29)
--- NOTE | 2021-03-09 10:40 | PC.CHAP ---
Pastoral Care Encounter/Spiritual Assessment Type of Contact [] Declined engineering vice president visit [] Patient/Family/Request visit [] Outpatient visit [] Follow-up visit [] Physician referral [] Code/Alert []x Routine visit [] Staff referral [] Actively dying [] Patient sleeping [] Family support [] [] Out of room [] Palliative care [] [x] Receiving care in room [] Pre-surgical visit [] Trauma [] Long length of stay [] ICU visit [] Other: Relational/Emotional Strength [] Patient feels connected with others/family/visitors/staff [] Distress [] Loneliness/isolation [] Abandonment Spirituality of Patient [] Person of Saniya [] Attends Holiness of their Saniya [] Believes in Prayer [] Reads Bible or Methodist materials [] There are Spiritual issues to be addressed Spline Rolling Machine Job Setter Interventions [x] Prayer [] Active listening [] Non-anxious presence [] Spiritual/emotional support [] Crisis/trauma care [] Spiritual counseling [] Bereavement support [] Provided bereavement packet [] Provided Bible/devotional materials [] Provided toy/stuffed animal, coloring book to patient or family member [] Provided Communion [] Anointing/[place] [] Salvation [x] Completed spiritual assessment [] Other: Impact on Illness or Injury [] Angry [] Fearful [] Anxious [] Often cries [] Exhaustion [] Unable to work [] Unable to attend restoration [] Unable to walk/stand [] Unable to read [] Unable to drive [] Unable to eat/drink [] Unable to sleep [] Unable to be with family [] Patient intubated [] Other: Summary Time spent with patient
[2021-03-09 11:53] LABS: Glucose Point of Care 179 mg/dL (70-110)
--- NOTE | 2021-03-09 14:34 | P.PN_ITS ---
Subjective Subjective: Interval history: 80-year-old male with a past medical history significant for hypertension, hyperlipidemia, abdominal aortic aneurysm status post repair, chronic obstructive pulmonary disease, diabetes mellitus, recent fall with rib fracture, who presented to the hospital with chest pain.Laboratory workup on arrival showed a WBC of 11.2, hemoglobin of 11.2, hematocrit 35.5 and a platelet count of 292. D-dimer of 1.26. Sodium 137, potassium 4.4, chloride 106, bicarb 13, BUN 57 and creatinine of 1.1. LFTs within normal limits. Troponin T of 23, 22.2. ProBNP of 747. Procalcitonin of 0.16.Urinalysis showed positive nitrites, 40 to 55 abcs and 3+ bacteria. COVID-19 antigen was negative. PCR was also negative.Imaging studies included chest x-ray which did not show any acute abnormality.Pelvic/ hip x-ray was negative.X-ray of ribs showed acute fracture of left 4th to 7th ribs. Up to 3 mm of displacement. Incidentally also noted a chronic L1 compression fracture.CTA chest showed again acute fractures of 4 to 6 rib however also noted to have mild anterior compression of T7 which appeared to be chronic.Head CT without contrast was also negative.Upon arrival patient was noted to have atrial fibrillation with rapid ventricular response.Patient was started on metoprolol 12.5 mg b.i.d. patient briefly reverted to normal sinus rhythm however again converted back to atrial fibrillation. Was started on Cardizem 30 mg oral q.6 hours. Echocardiogram was ordered however pending. also patient was started on Rocephin 2 g IV Q 24 hour for suspected UTI based on urinalysis showing nitrates, WBC and bacteria. 03/09/21 Patinet was note to have hypotension with rapid rate. No new complaints. Medications: Reviewed: Yes Vitals/I&O/Wt Last Vital Signs Temp 97.9 F 03/09/21 12:00 Pulse 109 H 03/09/21 12:00 Resp 16 03/09/21 12:00 BP 81/65 03/09/21 12:00 Pulse Ox 96 03/09/21 12:00 03/08/21 03/09/21 03/09/21 22:59 06:59 14:59 Intake Total 814 / 814 560 / 560 Output Total 1000 / 1000 1000 / 2000 Balance -186 / -186 -1000 / -1186 560 / 560 Physical Exam Narrative: EXAM NARRATIVE: General-Alert awake and oriented HEENT-grossly unremarkable CVS-Irregularly irregular rhythm Chest-nonlabored respiration Abdomen-soft nontender nondistended Extremities-no edema Data : 03/09/21 04:49 03/09/21 04:49 Micro: Microbiology 03/08/21 01:02 Urine Culture - Preliminary Urine,Clean Catch Gram Negative Rods A&P Assessment and plan (1) Atrial fibrillation with RVR: Status: Acute (2) Multiple rib fractures: d/c morphine due to hypotension , percocet , lidocaine patch for pain control CTA without pneumothorax or underlying pneumonia incentive spiromtery Status: Acute Qualifiers: Encounter type: initial encounter Fracture type: closed Laterality: left Qualified Code(s): S22.42XA - Multiple fractures of ribs, left side, initial encounter for closed fracture Additional A&P Information Mechanical fall with multiple left rib fractures Pain control Fall precautions PT/OT consultation Atrial fibrillation with rapid ventricular response No prior history noted Unable to tolerate cardizem or metoprolol due to hypotension Will d/c both meds 250 mcg IV x 1 q6hr x 2 125 mcg PO daily in am Check Dig level in am Continue anticoagulation as ordered D/w cardiology follow up on echo Suspected Urinary tract infection UA +nitrites, WBC, Bacteria Follow up on urine culture Rocephin 2g IV q24hr Hypertension Hold antihypertensives Dyslipidemia Lipitor 20 mg PO daily Diabetes mellitus Sliding scale insulin COPD Stable w/o exacerbation Duoneb q6hr PRN Supplemental o2 as needed. DVT ppx Eliquis as noted above Gi ppx Protonix 40 mg PO daily Attestations Medical Necessity Statement*: Will require further hospitalization for manage ment of atrial fibrillation requring further med ajustemnts. Time Spent in Patient Care: Greater than 35 minutes (>than 50% of time spent in counselling and/or direct pt care on unit) . Coding Level of Care Code Acute Candy Wrapping Machine Operator for Lloyd Solis Diagnoses Atrial fibrillation with RVR I48.91 Multiple rib fractures S22.42XA Encounter type: initial encounter Fracture type: closed Laterality: left
[2021-03-09] MEDS: digoxin 250 mcg/ml INJ 2 mL IVP (14:50)
[2021-03-09] MEDS: cefTRIAXone 2,000 MG in sodium chloride 0.9% (plus) 100 ML 200 MG IV (17:04)
[2021-03-09 18:39] LABS: Glucose Point of Care 104 mg/dL (70-110)
[2021-03-09 21:04] LABS: Glucose Point of Care 205 mg/dL (70-110)
[2021-03-09] MEDS: atorvastatin 40 mg Tablet 20 MG PO (21:29)
[2021-03-10] VITALS (19 sets, daily range): BP systolic 89–129; BP diastolic 60–78; PULSE 109–133; RESP 15–23; TEMP 36.7–37; O2SAT 89–99
[2021-03-10] MEDS: ipratropium-albuterol 3 mL Neb INHALATION ×2 (02:01→08:28)
--- NOTE | 2021-03-10 04:00 | USCV_ITS ---
Brandon Gracia Age: 80 Gender: M : 1940 Exam Date: 03/10/2021 13:01 Ordering Phys: Rosario Nuñez MD Technologist: VISHNU Exam Location: [facility] [place] Indication: LE SWELLING, + D DIMER PROCEDURES: Venous duplex imaging was performed in bilateral lower extremities. The following venous structures were evaluated: common femoral vein, profunda vein, proximal portion of the greater saphenous vein, superficial femoral vein, and the popliteal vein. In addition, the posterior tibial and peroneal trunk were evaluated. FINDINGS: Normal 2-D Doppler and augmentation and compressibility throughout the lower extremity venous structures. Additional imaging through the proximal calf veins also reveals no thrombus. Limited evaluation of the greater saphenous vein is patent with no thrombus.. There is an area noted within the left lower extremity medial to the popliteal that appears to be possible a complex fagan's cyst vs other. No blood flow. 4.10 X 3.13 X 4.09cm. CONCLUSIONS No evidence of right lower extremity DVT. No evidence of left lower extremity DVT. Complex left popliteal cyst 4.10 X 3.13 X 4.09cm. Moreno Wellington MD (Electronically Signed) Final Date: 10 March 2021 14:51 S
[2021-03-10] MEDS: oxyCODONE-APAP 5-325 mg Tablet 1 TAB PO ×4 (05:27→22:26)
[2021-03-10 06:58] LABS: Glucose Point of Care 136 mg/dL (70-110)
[2021-03-10] MEDS: apixaban 5 mg Tablet PO ×2 (08:24→20:56)
[2021-03-10] MEDS: digoxin 125 mcg Tablet PO (08:24)
[2021-03-10] MEDS: lidocaine 5% Patch 1 PATCH TOPICAL (08:25)
[2021-03-10] MEDS: gabapentin 300 mg Capsule PO ×4 (08:25→20:56)
[2021-03-10] MEDS: pantoprazole DR 40 mg Tablet PO (08:25)
--- NOTE | 2021-03-10 09:45 | PC.SOCIAL ---
IMM UPDATE Gave patient IMM update. Provided him a copy of pg 2 of IMM. Verbalized understanding. Initialed, dated, timed and placed in chart.
[2021-03-10] MEDS: metoprolol tartrate 25 mg Tablet 12.5 MG PO ×2 (10:38→22:26)
[2021-03-10 11:53] LABS: Glucose Point of Care 227 mg/dL (70-110)
--- NOTE | 2021-03-10 13:22 | PM.PN ---
Subjective Subjective: Interval history: 80-year-old male with a past medical history significant for hypertension, hyperlipidemia, abdominal aortic aneurysm status post repair, chronic obstructive pulmonary disease, diabetes mellitus, recent fall with rib fracture, who presented to the hospital with chest pain.Laboratory workup on arrival showed a WBC of 11.2, hemoglobin of 11.2, hematocrit 35.5 and a platelet count of 292. D-dimer of 1.26. Sodium 137, potassium 4.4, chloride 106, bicarb 13, BUN 57 and creatinine of 1.1. LFTs within normal limits. Troponin T of 23, 22.2. ProBNP of 747. Procalcitonin of 0.16.Urinalysis showed positive nitrites, 40 to 55 abcs and 3+ bacteria. COVID-19 antigen was negative. PCR was also negative.Imaging studies included chest x-ray which did not show any acute abnormality.Pelvic/ hip x-ray was negative.X-ray of ribs showed acute fracture of left 4th to 7th ribs. Up to 3 mm of displacement. Incidentally also noted a chronic L1 compression fracture.CTA chest showed again acute fractures of 4 to 6 rib however also noted to have mild anterior compression of T7 which appeared to be chronic.Head CT without contrast was also negative.Upon arrival patient was noted to have atrial fibrillation with rapid ventricular response.Patient was started on metoprolol 12.5 mg b.i.d. patient briefly reverted to normal sinus rhythm however again converted back to atrial fibrillation. Was started on Cardizem 30 mg oral q.6 hours. Echocardiogram was ordered however pending. also patient was started on Rocephin 2 g IV Q 24 hour for suspected UTI based on urinalysis showing nitrates, WBC and bacteria. 03/09/21 Patinet was note to have hypotension with rapid rate. No new complaints. 03/10/21 Rate not well controlled. No new complaints. Medications: Reviewed: Yes Vitals/I&O/Wt Last Vital Signs Temp 98.1 F 03/10/21 11:33 Pulse 128 H 03/10/21 11:33 Resp 20 H 03/10/21 12:34 BP 108/66 03/10/21 11:33 Pulse Ox 95 03/10/21 12:34 03/09/21 03/10/21 03/10/21 22:59 06:59 14:59 Intake Total 360 / 920 336 / 336 Output Total 1500 / 1500 Balance 360 / 920 -1500 / -580 336 / 336 Physical Exam Narrative: EXAM NARRATIVE: General-Alert awake and oriented HEENT-grossly unremarkable CVS-Irregularly irregular rhythm Chest-nonlabored respiration Abdomen-soft nontender nondistended Extremities-no edema Data : 03/09/21 04:49 03/09/21 04:49 Micro: Microbiology 03/08/21 01:02 Urine Culture - Preliminary Urine,Clean Catch Gram Negative Rods A&P Assessment and plan (1) Atrial fibrillation with RVR: Status: Acute (2) Multiple rib fractures: d/c morphine due to hypotension , percocet , lidocaine patch for pain control CTA without pneumothorax or underlying pneumonia incentive spiromtery Status: Acute Qualifiers: Encounter type: initial encounter Fracture type: closed Laterality: left Qualified Code(s): S22.42XA - Multiple fractures of ribs, left side, initial encounter for closed fracture Additional A&P Information Mechanical fall with multiple left rib fractures Pain control Fall precautions PT/OT consultation Atrial fibrillation with rapid ventricular response Dig 250 mcg IV x 2 on 03/09 125 mcg PO daily Check Dig level in am Metoprolol 12.5 mg PO BI Continue anticoagulation as ordered D/w cardiology - Consult placed Follow up on echo - once rate controlled improved. Suspected Urinary tract infection UA +nitrites, WBC, Bacteria Urine culture - Gram negative rods F/u on final organism Rocephin 2g IV q24hr Hypertension Meds noted above. Dyslipidemia Lipitor 20 mg PO daily Diabetes mellitus Sliding scale insulin COPD Stable w/o exacerbation Duoneb q6hr PRN Supplemental o2 as needed. DVT ppx Eliquis as noted above Gi ppx Protonix 40 mg PO daily Attestations Medical Necessity Statement*: Will require further hospitalization for management of atrial fibrillation with rvr Time Spent in Patient Care: Greater than 35 minutes (>than 50% of time spent in counselling and/or direct pt care on unit). Coding Level of Care Code Acute Licensing Court Magistrate for [facility] Fwd Diagnoses Atrial fibrillation with RVR I48.91 Multiple rib fractures S22.42XA Encounter type: initial encounter Fracture type: closed Laterality: left
--- NOTE | 2021-03-10 16:20 | P.CONIM_ITS ---
Providers/Reason For Consult Consulting Physician/Specialty*: Cardiology Reason for Consult*: Atrial fibrillation with rapid ventricle response. Attending Physician: Olvin Bella Primary Care Provider: Mil Veronica MD History of Present Illness History of Present Illness Brandon Gracia is a 80 year old male past medical history significant for COPD, AAA status post repair, diabetes mellitus denies CHF coronary artery disease or myocardial infarction was admitted for recurrent fall pain control and treatment, he was also noted to be in A. fib with RVR which was newly onset, despite of using beta-katelyn and digoxin our medical colleagues were not able to slow him down. Cardizem drip was tried but due to drop in blood pressure it was stopped. It is the reason we have been asked to assist in his care. Currently denies any chest pain. By physical examination he appeared to be dry. He feels short of breath and dizzy whenever he tries to walk Review of Systems General: Reports: 10 or more systems reviewed and unremarkable except in HPI and below Narrative: CONSTITUTIONAL: denies fever, fatigue, weakness EYES - denies pain, denies loss of vision EARS - denies ear issues. NOSE - denies congestion or rhinorrhea. THROAT - denies sore throat or difficulty swallowing. CARDIOVASCULAR -sharp chest pain. No palpitations or frequent chest pain in the past. RESPIRATORY -shortness of breath. No cough GASTROINTESTINAL - denies abdominal pain, no nausea vomiting, no changes in bowel habits GENITOURINARY - denies dysuria or urinary frequency MUSCULOSKELETAL-hip and left rib pain as noted in HPI SKIN - denies rashes or new changed skin lesions NEUROLOGIC - denies focal weakness or sensory changes HEMATOLOGIC/LYMPHATIC - denies easy bruising or lymphadenopathy. Const: Denies: fever(s), chills or body aches Eyes: Denies: change in vision, blurry vision or photophobia ENMT: Reports: hoarseness; Denies: throat pain, enlarged tonsils, odynophagia or nasal congestion Card: Denies: chest pain, palpitations, irregular heart rhythm, edema, swelling of feet/ankles, lightheadedness, pre-syncope, dyspnea on exertion or orthopnea Resp: Denies: dyspnea, productive cough, non-productive cough, wheezing, stridor, pain on inspiration, change in phlegm color, hemoptysis or chest congestion GI: Denies: abdominal pain, nausea, vomiting, hematemesis, coffee ground emesis, dysphagia, heartburn, diarrhea, constipation, GI cramping, change in stool character, hematochezia or melena : Denies: flank pain, dysuria, urinary frequency, urinary urgency, urinary hesitancy or hematuria Musc: Denies: neck pain, back pain, extremity pain, joint swelling, joint warmth or deformity Neuro: Denies: headache(s), numbness in extremities, weakness in extremities, sensory changes, difficulty walking, frequent falls, dizziness, vertigo, behavioral changes, Slurred speech present or seizure-like activity Psych: Denies: anxiety, depression, suicidal ideation or homicidal ideation Endo: Denies: polyuria, polydipsia, tired all the time, cold intolerance or hot flashes Rafael/Lymph: Denies: easy bruising or easy bleeding Meds/Allergies Home Medications and Allergies Home Medications Medication Instructions Recorded Confirmed Last Taken Type bimatoprost 0.01 % eye drops 1 drop OPHTHALMIC (EYE) DAILY 08/12/19 03/07/21 03/06/21 History lisinopril 30 mg tablet 30 mg PO DAILY 08/12/19 03/07/21 03/06/21 History metformin 500 mg tablet 500 mg PO BID 08/12/19 03/07/21 03/06/21 History spironolactone 25 mg tablet 25 mg PO DAILY 08/12/19 03/07/21 03/06/21 History umeclidinium 62.5 mcg-vilanterol 1 inh INHALATION Q24H 08/12/19 03/07/21 03/06/21 History 25 mcg/actuation powdr for inhalation acetaminophen [Tylenol] 325 mg PO QID PRN 03/07/21 03/07/21 Unknown History ascorbic acid (vitamin C) [Vitamin 1,000 mg PO DAILY 03/07/21 03/07/21 03/03/21 History C] cholecalciferol (vitamin D3) 25 mcg PO DAILY 03/07/21 03/07/21 03/03/21 History [Vitamin D3] cyanocobalamin (vitamin B-12) 1,000 mcg PO DAILY 03/07/21 03/07/21 03/03/21 History [Vitamin B-12] ferrous sulfate [Iron (ferrous 325 mg PO DAILY 03/07/21 03/07/21 03/03/21 History sulfate)] gabapentin 300 mg PO QID 03/07/21 03/07/21 03/06/21 History hydrocodone-acetaminophen 1 tab PO Q8H PRN 03/07/21 03/07/21 Unknown History ibuprofen 200 mg PO Q4H PRN 03/07/21 03/07/21 03/07/21 History ibuprofen-diphenhydramine cit 1 - 2 tab PO BEDTIME PRN 03/07/21 03/07/21 Unknown History [Advil PM] gqbezphebxbv-gkfvnujr-zdrfch 1 tab PO DAILY 03/07/21 03/07/21 03/03/21 History [Multivitamin 50 Plus] naproxen sodium [Aleve] 220 mg PO Q8H PRN 03/07/21 03/07/21 Unknown History pravastatin 40 mg PO DAILY 03/07/21 03/07/21 03/06/21 History vitamins A,C,J-tnaj-bxhwyt 2 tab PO BID 03/07/21 03/07/21 03/03/21 History [PreserVision AREDS] Allergies Allergy/AdvReac Type Severity Reaction Status Date / Time No Known Allergies Allergy Verified 08/13/19 08:13 Current Medications Current Medications Generic Name Dose Route Start Last Admin Trade Name Freq PRN Reason Stop Dose Admin Apixaban 5 mg 03/08/21 21:00 03/10/21 08:24 Apixaban 5 Mg Tablet PO 5 mg BID@0900,2100 MIKO Administration Atorvastatin Calcium 20 mg 03/08/21 21:00 03/09/21 21:29 Atorvastatin 40 Mg Tablet PO 20 mg BEDTIME MIKO Administration Digoxin 125 mcg 03/10/21 09:00 03/10/21 08:24 Digoxin 125 Mcg Tablet PO 125 mcg DAILY MIKO Administration Gabapentin 300 mg 03/08/21 09:00 03/10/21 12:34 Gabapentin 300 Mg Capsule PO 300 mg QID MIKO Administration Ceftriaxone Sodium 2,000 mg/ 100 mls @ 200 mls/hr 03/08/21 17:00 03/10/21 07:58 Sodium Chloride IV Infused Q24H MIKO Infusion Protocol Insulin Aspart 0 unit 03/08/21 08:00 03/10/21 12:32 Insulin Aspart 100 Unit/1 Ml SUBCUT 6 unit WM&BEDTIME MIKO Administration Protocol Lidocaine 1 patch 03/08/21 09:00 03/10/21 08:25 Lidocaine 5% Patch TOPICAL 1 patch [id number] MIKO Administration Morphine Sulfate 2 mg 03/07/21 21:36 03/08/21 04:17 Morphine 4 Mg/Ml Sdv 1 Ml IVP 2 mg Q4H PRN Administration SEVERE PAIN Oxycodone/Acetaminophen 1 tab 03/07/21 21:36 03/10/21 12:34 Oxycodone-Apap 5-325 Mg Tablet PO 1 tab Q4H PRN Administration SEVERE PAIN Pantoprazole Sodium 40 mg 03/08/21 09:00 03/10/21 08:[address] 40 Mg Tablet PO 40 mg DAILY MIKO Administration PFSH Acute PFSH: Medical History (Updated 03/08/21 @ 07:14 by Rosario Nuñez MD) COPD (chronic obstructive pulmonary disease) Diabetes mellitus Type 2 Hypertension Neuropathy, idiopathic Primary osteoarthritis of right knee Surgical History History of AAA (abdominal aortic aneurysm) repair Hx of cholecystectomy Hx of eye surgery right S/P right knee arthroscopy twice by Family History Denies family history of Diabetes CAD (coronary artery disease) Clotting disorder Dementia Hyperlipidemia Psychiatric illness Chronic kidney disease (CKD) Suicide Anesthesia complication Bleeding disorder Family history of premature coronary artery disease Lung disease Cancer Hypertension Stroke Social History Smoking and tobacco status: former smoker Quit status (tobacco): has quit using tobacco Year quit tobacco: 3 years ago;2017 Alcohol intake: never Dietary Habits: Current diet type/program: diabetic Safety: Seatbelt use: always Drive intoxicated or ride with intoxicated distribution driver?: never Vitals/I&O/Wt Last Vital Signs Temp 98.3 F 03/10/21 15:35 Pulse 126 H 03/10/21 15:35 Resp 15 03/10/21 15:35 BP 89/60 03/10/21 15:35 Pulse Ox 95 03/10/21 15:35 03/10/21 03/10/21 03/10/21 06:59 14:59 22:59 Intake Total 436 / 436 Output Total 1500 / 1500 Balance -1500 / -580 436 / 436 Physical Exam Narrative: EXAM NARRATIVE: GENERAL: Patient is alert, awake and oriented x3. NECK: No jugular vein distension. HEENT: No cyanosis. No icterus. No pallor. HEART: Irregularly irregular S1 and S2. No murmur, rub or gallop. LUNGS: Clear to auscultate bilaterally. ABDOMEN: Soft, nontender and nondistended. Positive bowel sounds. No guarding, rebound or tenderness. CENTRAL NERVOUS SYSTEM: Grossly nonfocal. EXTREMITIES: Lower extremities without edema bilaterally. Data Labs: Other Labs: ATRIAL FIBRILLATION WITH RAPID VENTRICULAR RESPONSE MARKED LEFT AXIS DEVIATION [QRS AXIS < -30] SEPTAL MYOCARDIAL INFARCTION [40+ ms Q WAVE IN V1/V2], OF INDETERMINATE AGE Compared to ECG 03/07/2021 17:44:47 Left-axis deviation now present Myocardial infarct finding now present Sinus rhythm no longer present First degree AV block no longer prese Micro: Micro: Microbiology 03/08/21 01:02 Urine Culture - Pr eliminary Urine,Clean Catch Gram Negative R ods A&P Assessment and plan (1) Atrial fibrillation with RVR: Patient appeared to be volume depleted. I would give him fluid and start him on metoprolol 12.5 mg twice a day. We will continue digoxin 0.125 once blood pressure is stable I may will increase metoprolol. Once he slows down we may will ask for echocardiogram to assess LV function or any valvular pathology. Most likely it is due to dehydration duration and hyperadrenergic state secondary to stress. Patient is on anticoagulation. He is complaining of small blood in the stool. We will continue to monitor he will be given bolus of 500 mL IV fluid normal saline followed by 100 mL/h Status: Acute (2) Multiple rib fractures: As per medicine Status: Acute Qualifiers: Encounter type: initial encounter Fracture type: closed Laterality: left Qualified Code(s): S22.42XA - Multiple fractures of ribs, left side, initial encounter for closed fracture (3) Recurrent falls: As per medicine. Status: Acute Consult Attestations Medical Necessity Statement: Patient require continuation hospitalization for above defined care. Coding Level of Care Code New Pt Acute Child Care Aide for Lloyd Solis Patient Type New History Detailed Exam Detailed Medical Decision Making Moderate Complexity Diagnoses Atrial fibrillation with RVR I48.91 Multiple rib fractures S22.42XA Encounter type: initial encounter Fracture type: closed Laterality: left Recurrent falls R29.6
[2021-03-10 16:54] LABS: Glucose Point of Care 114 mg/dL (70-110)
[2021-03-10] MEDS: sodium chloride 0.9% 500 ML 999 ML IV ×2 (17:56→22:26)
[2021-03-10] MEDS: cefTRIAXone 2,000 MG in sodium chloride 0.9% (plus) 100 ML 200 MG IV (17:56)
[2021-03-10] MEDS: sodium chloride 0.9% 1,000 ML 100 ML IV (17:57)
[2021-03-10 18:28] LABS: Hematocrit 36.3 % (42.0-52.0)
--- NOTE | 2021-03-10 19:25 | PC.NURSE ---
Shift note Pt is alert, orientedx4, Pleasant. Up ad tomeka to bathroom. Pt left rib and left hip pain from fall has been controlled by oxycodone. Pt is Afib w/rvr w/ HR ranges between mid 120s to 130s. This afternoon pt HR slowed down bet mid 70s to 80s in SR w/ freq PAC's then back to afib w/rvr. Had 1 ep of Bright red blood in his stool. Dr. Bella notified and ordered H&H. Wound Specialist Dr. Smyth is consulted. Orders received for fluids. pls see e-mar. Message to nurse and relayed to nurse Hillary Johnson to call Dr. Libra farrell with his HR and BP and get an order to restart P.O Metoprolol. RN Rios Thornton verbalizes the message.
--- NOTE | 2021-03-10 19:48 | PC.NURSE ---
Shift Note Frequent safety and comfort rounds continue. Orders and/or nursing care completed as indicated. Patient monitored for response to intervention and treatment(s). Education provided includes Eliquis. Patient and/or collections representative verbalized complete understanding. Received report from REJI Doshi. Patient resting in bed. Patient current heart rate 120-130s. Dr Smyth is aware. Received in report to call Dr Smyth with pressures this evening to determine dosing of possible metoprolol. Patient denies needs at this time with pain controlled 4/10 at this time. No other distresses observed. Will continue to monitor.
[2021-03-10 20:39] LABS: Glucose Point of Care 188 mg/dL (70-110)
[2021-03-10] MEDS: atorvastatin 40 mg Tablet 20 MG PO (20:56)
--- NOTE | 2021-03-10 21:15 | PC.NURSE ---
Informed Dr Smyth per his request of current heart rate of 105 to 110s with last bp of 94/69. Received telephone order to give metoprolol 12.5mg PO every 12 hours and to give NS 500ml bolus one time then continue with NS at 100ml/hr.
[2021-03-11] VITALS (10 sets, daily range): BP systolic 109–142; BP diastolic 74–86; PULSE 65–135; RESP 14–23; TEMP 36.8–36.9; O2SAT 93–100
[2021-03-11] MEDS: sodium chloride 0.9% 1,000 ML 100 ML IV ×2 (04:07→14:41)
[2021-03-11 04:39] LABS: Basophils # 0.1 10^3/uL (0.0-0.1); Basophils % 0.7 %; Eosinophils # 0.4 10^3/uL (0.0-0.8); Eosinophils % 3.5 %; Hemoglobin 10.5 g/dL (11.7-16.6); Lymphocytes # 2.3 10^3/uL (0.8-4.8); Lymphocytes % 21.1 %; Mean Corpuscular Hemoglobin 24.1 pg (28.0-34.0); Mean Corpuscular Volume 80.5 fL (80-94); Mean Platelet Volume 10.5 fL (7.4-10.4); Monocytes # 0.6 10^3/uL (0.2-0.9); Neutrophils # 7.63 10^3/uL (1.8-7.7); Neutrophils % 68.8 %; Nucleated Red Blood Cells % 0 %; Platelet Count 246 10^3/cmm (130-400); Red Blood Count 4.35 10^6/uL (4.1-5.3); Red Cell Distribution Width 19.7 % (12.1-15.1); White Blood Count 11.1 10^3/uL (4.0-10.0)
[2021-03-11 04:59] LABS: Alanine Aminotransferase 16 U/L (0-41); Albumin Level 3.3 g/dL (3.5-5.2); Alkaline Phosphatase 67 IU/L (40-130); Anion Gap 13.3 (5-19); Aspartate Amino Transferase 9 U/L (0-40); Blood Urea Nitrogen 23 mg/dL (8-23); Calcium 8.4 mg/dL (8.5-10.5); Carbon Dioxide 22 mmol/L (22-29); Chloride 108 mmol/L (98-107); Globulin 2.2 g/dL (1.3-4.6); Glucose 104 mg/dL (65-115); Magnesium 1.3 mg/dL (1.7-2.3); Osmolality Calculated 292 mOsm/kg (285-295); Potassium 4.3 mmol/L (3.5-5.1); Sodium 139 mmol/L (136-145); Total Bilirubin 0.2 mg/dL (0.15-1.2); Total Protein 5.5 g/dL (6.6-8.7)
[2021-03-11] MEDS: oxyCODONE-APAP 5-325 mg Tablet 1 TAB PO ×2 (06:01→14:49)
[2021-03-11 07:21] LABS: Glucose Point of Care 120 mg/dL (70-110)
[2021-03-11] MEDS: metoprolol tartrate 25 mg Tablet 12.5 MG PO (08:27)
[2021-03-11] MEDS: digoxin 125 mcg Tablet PO (08:27)
[2021-03-11] MEDS: apixaban 5 mg Tablet PO (08:28)
[2021-03-11] MEDS: gabapentin 300 mg Capsule PO ×2 (08:28→14:41)
[2021-03-11] MEDS: pantoprazole DR 40 mg Tablet PO (08:28)
--- NOTE | 2021-03-11 10:06 | PC.CHAP ---
Pastoral Care Encounter/Spiritual Assessment Type of Contact [] Declined cotton header visit [] Patient/Family/Request visit [] Outpatient visit [] Follow-up visit [] Physician referral [] Code/Alert [xx] Routine visit [] Staff referral [] Actively dying [] Patient sleeping [] Family support [] [] Out of room [] Palliative care [] [] Receiving care in room [] Pre-surgical visit [] Trauma [] Long length of stay [] ICU visit [] Other: Relational/Emotional Strength [xx] Patient feels connected with others/family/visitors/staff [] Distress [] Loneliness/isolation [] Abandonment Spirituality of Patient [xx] Person of Saniya [] Attends Mosque of their Saniya [xx] Believes in Prayer [xx] Reads Bible or Catholic materials [] There are Spiritual issues to be addressed Wire Frame Dipper Interventions [xx] Prayer [xx] Active listening [xx] Non-anxious presence [] Spiritual/emotional support [] Crisis/trauma care [] Spiritual counseling [] Bereavement support [] Provided bereavement packet [] Provided Bible/devotional materials [] Provided toy/stuffed animal, coloring book to patient or family member [] Provided Communion [] Anointing/Cary [] Salvation [xx] Completed spiritual assessment [] Other: Impact on Illness or Injury [] Angry [] Fearful [] Anxious [] Often cries [] Exhaustion [] Unable to work [xx] Unable to attend shinto [] Unable to walk/stand [] Unable to read [] Unable to drive [] Unable to eat/drink [] Unable to sleep [] Unable to be with family [] Patient intubated [] Other: Summary Patient feels better and wants to go home Time spent with patient 5 minutes
--- NOTE | 2021-03-11 10:16 | PC.NURSE ---
Bedside report received from Hillary MENDOZA. Patient is sitting on the side of his bed playing on his phone. A & O x4, no C/O of pain or other needs at this time. Nurse will continue to monitor.
[2021-03-11 11:30] LABS: Glucose Point of Care 194 mg/dL (70-110)
--- NOTE | 2021-03-11 15:29 | P.PN_ITS ---
Subjective Subjective: Interval history: Converted into sinus rhythm. Medications: Reviewed: Yes Vitals/I&O/Wt Last Vital Signs Temp 98.3 F 03/11/21 03:14 Pulse 65 03/11/21 14:46 Resp 21 H 03/11/21 14:49 BP 142/76 03/11/21 14:46 Pulse Ox 100 03/11/21 14:46 03/11/21 03/11/21 03/11/21 06:59 14:59 22:59 Intake Total 1500 / 2774 1250 / 1250 Output Total 300 / 300 Balance 1500 / 2774 950 / 950 Physical Exam Narrative: EXAM NARRATIVE: GENERAL: Patient is alert, awake and oriented x3. NECK: No jugular vein distension. HEENT: No cyanosis. No icterus. No pallor. HEART: Regular S1 and S2. No murmur, rub or gallop. LUNGS: Clear to auscultate bilaterally. ABDOMEN: Soft, nontender and nondistended. Positive bowel sounds. No guarding, rebound or tenderness. CENTRAL NERVOUS SYSTEM: Grossly nonfocal. EXTREMITIES: Lower extremities without edema bilaterally. Data : 03/11/21 04:13 03/11/21 04:13 Micro: Microbiology 03/08/21 01:02 Urine Culture - Final Urine,Clean Catch Escherichia coli A&P Assessment and plan (1) Atrial fibrillation with RVR: Patient converted to sinus rhythm. We will discontinue IV fluid. We will switch patient to 25 mg p.o. twice daily metoprolol tartrate and apixaban will continue. We will ask for echocardiogram. Patient can be discharged from cardiovascular perspective. Patient will follow up with us in cardiology clinic Status: Acute (2) Multiple rib fractures: As per medicine Status: Acute Qualifiers: Encounter type: initial encounter Fracture type: closed Laterality: left Qualified Code(s): S22.42XA - Multiple fractures of ribs, left side, initial encounter for closed fracture (3) Recurrent falls: As per medicine. Status: Acute Attestations Medical Necessity Statement*: Patient can be discharged from cardiovascular perspective. Coding Level of Care Code Acute Ballast Regulator Operator for [facility] Will Diagnoses Atrial fibrillation with RVR I48.91 Multiple rib fractures S22.42XA Encounter type: initial encounter Fracture type: closed Laterality: left Recurrent falls R29.6
--- NOTE | 2021-03-11 15:30 | USCV_ITS ---
Basil Brandon Age: 80 Gender: M : 1940 Exam Date: 03/11/2021 16:04 Ordering Phys: Dayna Smyth MD ([email or web address]) Technologist: Skylar Donato Exam Location: [facility] – [place] Indication: PAD BP: / HR: 72 Rhythm: Sinus Technical Quality: Adequate MEASUREMENTS (Male / Female) Normal Values 2D ECHO LV Diastolic Diameter PLAX 3.6 cm 4.2 - 5.9 / 3.9 - 5.3 cm LV Systolic Diameter PLAX 2.9 cm LV Chamber Size 3.7 cm IVS Diastolic Thickness 1.7 cm 0.6 - 1.0 / 0.6 - 0.9 cm IVS Systolic Thickness 1.8 cm LVPW Diastolic Thickness 1.3 cm 0.6 - 1.0 / 0.6 - 0.9 cm LVPW Systolic Thickness 1.8 cm RV Chamber Size 3.2 cm LVOT Diameter 2.1 cm LV Ejection Fraction 2D Teich 40.5 % LV Ejection Fraction MOD 2C 49.6 % LV Ejection Fraction 2C AL 50.4 % LA Diameter 3.2 cm LA Width 3.9 cm LA Height 3.9 cm RA Width 4.0 cm RA Height 4.1 cm Aorta at Sinotubular Diameter 3.0 cm M-MODE Aortic Annulus Diameter 3.3 cm LA Ao Ratio MM 1.1 MV E Point Septal Separation 0.8 cm DOPPLER AV Peak Velocity 155.0 cm/s LVOT Peak Velocity 91.0 cm/s AV Area Cont Eq vti 1.8 cm squared AV Area Cont Eq pk 2.0 cm squared MV Area PHT 4.9 cm squared MV E' Velocity 50.0 cm/s Mitral E to MV E' Ratio 7.9 Mitral E to LV E' Lateral Ratio 8.2 Mitral E to LV E' Septal Ratio 7.7 TR Peak Velocity 217.5 cm/s TR Peak Gradient 18.9 mmHg TR Mean Velocity 176.7 cm/s TR Mean Gradient 13.7 mmHg TR Velocity Time Integral 74.1 cm TV Peak E Velocity 86.0 cm/s Right Atrial Pressure 5.0 mmHg Pulmonary Artery Systolic Pressu 23.9 mmHg PV Peak Velocity 86.0 cm/s RV Acceleration Time 0.1 s RV Ejection Time 0.4 s RV AcT/ET 0.3 FINDINGS Left Ventricle Mild diffuse hypokinesia of the septum and the LV apex. Left ventricular ejection fraction around 49% Right Ventricle The right ventricle is normal in size and function. Right Atrium The right atrium is normal in size. Left Atrium The left atrium is normal in size. Mitral Valve Minimally thickened.trace mitral valve regurgitation. Aortic Valve Thickened aortic valve. Tricuspid Valve No gross abnormalities noted.trace tricuspid valve regurgitation. Pulmonic Valve Pulmonic valve not well visualized. Pericardium Normal pericardium without effusion. Aorta Normal ascending aorta dimension. CONCLUSIONS Mild diffuse hypokinesia of the septum and the LV apex. Left ventricular ejection fraction around 49%. Minimally thickened mitral valve with a trace of mitral regurgitation. Thickened aortic valve. Trace tricuspid valve regurgitation. There is no pericardial effusion. There are no intracardiac masses. No previous similar studies available for comparison. Dr Alfredo Silveira MD [facility] (Electronically Signed) Final Date: 17 March 2021 00:34 S
--- NOTE | 2021-03-11 16:25 | P.DS_ITS ---
Discharge Providers Date of Admission: 03/07/21 19:27 Date of Discharge: March 11, 2021 Attending Provider at Admission: Rosario Nuñez MD Attending Provider at Discharge: Olvin Bella Primary Care Provider: Mil Veronica MD Diagnoses at Discharge Discharge Diagnosis (1) Atrial fibrillation with RVR: Status: Resolved (2) Multiple rib fractures: Status: Acute Qualifiers: Encounter type: initial encounter Fracture type: closed Laterality: left Qualified Code(s): S22.42XA - Multiple fractures of ribs, left side, initial encounter for closed fracture (3) Recurrent falls: Status: Acute Reason for Visit Reason for Visit: FALL ON SUNDAY Hospital Course Hospital Course 80 year old male with PMH HTN, DM, sustained a mechanical fall one week ago while trying to board an airplane due to absence of handrails. Developed left chest pain thereafter for which he visited local urgent care and diagnosed with rib fracture, on conservative management. Thereafter upon his return on , while at his office he sustained another fall. States he got up from his chair, went to a counter nearby, started to fall backwards (attributes again to mechanical factors), missed his chair and landed on the floor. Was on the floor for 4-5 hrs per his estimate. Called EMS, decided not to come to hospital as felt better once EMS placed him back in his chair. However since then has had increasing discomfort over his left hip. Uses walker at baseline, still able to walk with walker but pain is poorly controlled. Presented to ER today when both chest pain and hip pain became worse. No back pain. CTA chest ruled out PE. No fractures noted on X ray of hip. Incidentally noted to have A fib with RVR, HR 120s. denies chest pain, palpitations, syncope. LE swelling +, L >R, patient states this is new. Upon admission to the hospital patient was started on low-dose metoprolol. Continue to have uncontrolled rates. Intermittently received digoxin due to hypotensive episodes. Cardiology was consulted. Patient was found to be dehydrated. Was given IV fluids. Blood pressure had improved. Digoxin was discontinued and patients metoprolol was increased to 25 mg oral twice daily. Additionally was given Eliquis 5 mg oral twice daily. Patient was stable and cleared for discharge per Cardiology. Close outpatient follow-up was requested. Physical Exam Narrative: EXAM NARRATIVE: General-Alert awake and oriented HEENT-grossly unremarkable CVS-Irregularly irregular rhythm Chest-nonlabored respiration Abdomen-soft nontender nondistended Extremities-no edema Discharge Data Data Completed and Pending: Completed Studies During Hospitalization Category Date Time Status CT angio chest PE protcl [id number] Urge nt Cat Scan 03/07/21 17:[address] head wo con* 7 0450 Routine Cat Scan 03/07/21 21:41 Completed XR chest 1V danuta ble [id number] Urgent Exams 03/07/21 14:19 Completed XR hip LT 2-3V wo /w pel* [id number] Urge nt Exams 03/07/21 14:19 Completed XR ribs LT 2V* 71 100 Urgent Exams 03/07/21 14:19 [place] [id number] Routin e Ultrasound 03/10/21 04:00 Completed Pending at discharge Category Date Time Status CV. echo complete * [id number] Routine Ultrasound 03/11/21 15:30 Ordered Labs from last 24 hours 03/11/21 03/11/21 03/11/21 11:02 06:34 04:13 WBC RBC Hgb Hct MCV MCH MCHC RDW Plt Count MPV Neut % (Auto) Lymph % (Auto) [place] % (Auto) Eos % (Auto) Baso % (Auto) Neut # (Auto) Lymph # (Auto) [place] # (Auto) Eos # (Auto) Baso # (Auto) Nucleated RBC % (a uto) Nucleated RBCs # Sodium 139 Potassium 4.3 Chloride 108 H Carbon Dioxide 22 Anion Gap 13.3 BUN 23 Creatinine 1.0 GFR Calculation Not Reportable Glucose 104 POC Glucose 194 H 120 H Calculated Osmolal ity 292 Calcium 8.4 L Magnesium 1.3 L Total Bilirubin 0.2 AST 9 ALT 16 Alkaline Phosphata se 67 Total Protein 5.5 L Albumin 3.3 L Globulin 2.2 03/11/21 03/10/21 03/10/21 04:13 20:15 17:50 WBC 11.1 H RBC 4.35 Hgb 10.5 L 11.0 L Hct 35.0 L 36.3 L MCV 80.5 MCH 24.1 L MCHC 30.0 RDW 19.7 H Plt Count 246 MPV 10.5 H Neut % (Auto) 68.8 Lymph % (Auto) 21.1 [place] % (Auto) 5.0 Eos % (Auto) 3.5 Baso % (Auto) 0.7 Neut # (Auto) 7.63 Lymph # (Auto) 2.3 [place] # (Auto) 0.6 Eos # (Auto) 0.4 Baso # (Auto) 0.1 Nucleated RBC % (a uto) 0 Nucleated RBCs # 0.0 Sodium Potassium Chloride Carbon Dioxide Anion Gap BUN Creatinine GFR Calculation Glucose POC Glucose 188 H Calculated Osmolal ity Calcium Magnesium Total Bilirubin AST ALT Alkaline Phosphata se Total Protein Albumin Globulin 03/10/21 16:37 WBC RBC Hgb Hct MCV MCH MCHC RDW Plt Count MPV Neut % (Auto) Lymph % (Auto) [place] % (Auto) Eos % (Auto) Baso % (Auto) Neut # (Auto) Lymph # (Auto) [place] # (Auto) Eos # (Auto) Baso # (Auto) Nucleated RBC % (a uto) Nucleated RBCs # Sodium Potassium Chloride Carbon Dioxide Anion Gap BUN Creatinine GFR Calculation Glucose POC Glucose 114 H Calculated Osmolal ity Calcium Magnesium Total Bilirubin AST ALT Alkaline Phosphata se Total Protein Albumin Globulin Vitals: Last Vital Signs Temp 98.4 F 03/11/21 16:05 Pulse 71 03/11/21 16:05 Resp 21 H 03/11/21 16:05 BP 142/76 03/11/21 16:05 Pulse Ox 96 03/11/21 16:05 Discharge Plan Discharge Patient Disposition: Home Condition: Stable Prescriptions: New Eliquis 5 mg Tablet 5 mg PO BID@0900,2100 Qty: 60 RF: 0 metoprolol tartrate 25 mg tablet 25 mg PO BID Qty: 60 RF: 0 Continued Anoro Ellipta 62.5-25 mcg/actuation blister with device 1 inh INHALATION Q24H RF: 0 metformin 500 mg tablet 500 mg PO BID RF: 0 Lumigan 0.01 % drops 1 drop ophthalmic (eye) DAILY RF: 0 Vitamin C 1,000 mg Tablet 1,000 mg PO DAILY RF: 0 Tylenol 325 mg Tablet 325 mg PO QID PRN (Reason: Pain) RF: 0 pravastatin 40 mg tablet 40 mg PO DAILY RF: 0 Iron (ferrous sulfate) 325 mg (65 mg iron) Tablet 325 mg PO DAILY RF: 0 Vitamin D3 25 mcg (1,000 unit) Capsule 25 mcg PO DAILY RF: 0 Multivitamin 50 Plus Tablet 1 tab PO DAILY RF: 0 PreserVision AREDS 7,160 unit- 113 mg-100 unit Tablet 2 tab PO BID RF: 0 gabapentin 300 mg capsule 300 mg PO QID RF: 0 Discontinued lisinopril 30 mg tablet 30 mg PO DAILY RF: 0 spironolactone 25 mg tablet 25 mg PO DAILY RF: 0 hydrocodone-acetaminophen 5-325 mg tablet 1 tab PO Q8H PRN (Reason: Pain) RF: 0 cyanocobalamin (vitamin B-12) [Vitamin B-12] 1,000 mcg Tablet 1,000 mcg PO DAILY RF: 0 naproxen sodium [Aleve] 220 mg Tablet 220 mg PO Q8H PRN (Reason: Pain) RF: 0 ibuprofen 200 mg Tablet 200 mg PO Q4H PRN (Reason: Pain) RF: 0 Advil PM 200-38 mg Tablet 1 - 2 tab PO BEDTIME PRN (Reason: PAIN/SLEEP) RF: 0 Discharge Orders: Discharge Order (Routine); Ordered 03/11/21 Ordered By: Olvin Bella Referrals: Dayna Smyth MD [Physician] - 2 weeks Mil Veronica MD [Primary Care Provider] - 1-3 days Discharge Diet: Cardiac Discharge Activity: Increase activity as tolerated Patient Instructions: Atrial Fibrillation, Rib Fracture (DC), Opioid Safety Discharge Attestations Time Spent in Discharge Care*: greater than 30 min Specific Discharge Activities: educating patient, discussing with pcp/other providers, discussing with family caseworker/social workers/dc planners, documenting/other paperwork and evaluating patient/reviewing data Status at Discharge: Cognitive status at discharge: cognitively intact , Behavioral status at discharge: cooperative , Functional status at discharge: independent ambulation Overall status at discharge: patient is progressing back to baseline Quality Metrics Clinical Quality Measures During this hospital stay, did patient experience: None Coding Level of Care Code Acute Chg FW DC note Diagnoses Atrial fibrillation with RVR I48.91 Multiple rib fractures S22.42XA Encounter type: initial encounter Fracture type: closed Laterality: left Recurrent falls R29.6
--- NOTE | 2021-03-16 09:12 | PC.SOCIAL ---
several phone calls made for discharge follow up without success
--- NOTE | 2021-03-16 09:22 | PC.SOCIAL ---
discharge follow up call made to patient. pt saw Dr. Veronica yesterday and was told he didn't need follow up appointment with Dr. Smyth. Patient picked up new prescriptions and is taking as prescribed.
== END 2021-03-11 17:08 | disposition home or self-care (01) | DRG 184 ==
LOC: ER 19:21 → CSU 21:08
PROVIDERS: Admitting Provider Student in an Organized Health Care Education/Training Program; Emergency Provider Emergency Medicine; PCP Family Medicine; Visit Provider Hospitalist
DX: S22.42XA Multiple fractures of ribs, left side, initial encounter for closed fracture (principal); N39.0 Urinary tract infection, site not specified; W01.0XXA Fall on same level from slipping, tripping and stumbling without subsequent striking against object, initial encounter; Y93.89 Activity, other specified; Y92.813 Airplane as the place of occurrence of the external cause; I10 Essential (primary) hypertension; E11.9 Type 2 diabetes mellitus without complications; J44.9 Chronic obstructive pulmonary disease, unspecified; M17.11 Unilateral primary osteoarthritis, right knee; E78.5 Hyperlipidemia, unspecified; I48.91 Unspecified atrial fibrillation; R29.6 Repeated falls; M79.89 Other specified soft tissue disorders; Z20.822 Contact with and (suspected) exposure to COVID-19; Z79.4 Long term (current) use of insulin; Z90.49 Acquired absence of other specified parts of digestive tract; Z98.890 Other specified postprocedural states; Z87.891 Personal history of nicotine dependence
CPT/HCPCS: 36415; 36416; 70450; 71045; 71100; 71275; 73502; 80048; 80053; 81001; 82550; 82962; 83605; 83735; 83880; 84145; 84443; 84484; 85014; 85018; 85025; 85378; 87077; 87086; 87186; 87426; 87635; 93005; 93306; 93970; 94640; 96372; 97161; 97165; 97530; 99285; J0696; J1160; J1650; J1815; J1940; J2270; J7030; J7040; Q9967

== ENCOUNTER 2021-05-13 05:36 | Emergency (ER) | payer MEDICARE, OTHER, SELFPAY ==
[2021-05-13] VITALS (7 sets, daily range): BP systolic 102–153; BP diastolic 77–97; PULSE 84–120; RESP 12–24; TEMP 36.5; O2SAT 91–96; BMI 28.4
--- NOTE | 2021-05-13 05:42 | XRR_ITS ---
PROCEDURE INFORMATION: Exam: XR Left Hip Exam date and time: 05/13/2021 5:42 AM Age: 80 years old Clinical indication: Hip pain; Left hip; Patient HX: Sciatica pain in lt hip; Additional info: Left hip pain TECHNIQUE: Imaging protocol: XR Left hip. Views: 2 or 3 views hip with pelvis when performed. COMPARISON: CR XR hip LT 2-3V wo/w pel* [id number] 03/07/2021 2:55 PM FINDINGS: Tubes, catheters and devices: Surgical clips overlie the left inguinal soft tissues. Bones/joints: Osteopenia. Aorta iliac graft. No acute fracture. 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 Soft tissues: Unremarkable. XR/XR hip LT 2-3V wo/w pel* [id number] IMPRESSION: Mild degenerative arthritis left hip with medial joint space narrowing. Similar appearance compared to prior images . Radiation Dose CTDIVOL = (mGy): DLP = (mGy-cm)
--- NOTE | 2021-05-13 07:18 | XR_ITS ---
WS: [id number] XR chest 1V portable [id number] REASON FOR EXAM: dyspnea/cough FINDINGS: Compared to the previous examination of 03/07/2021 the right pleural effusion appears to have resolved. No other significant interval change. No acute pulmonary parenchymal or pleural abnormality fany zamudio XR/XR chest 1V portable [id number] IMPRESSION: Resolved right pleural effusion. No acute abnormality.
[2021-05-13 07:42] LABS: Basophils # 0.1 10^3/uL (0.0-0.1); Basophils % 0.6 %; Eosinophils # 0.2 10^3/uL (0.0-0.8); Eosinophils % 1.9 %; Hematocrit 43.4 % (42.0-52.0); Hemoglobin 14.1 g/dL (11.7-16.6); Lymphocytes # 1.9 10^3/uL (0.8-4.8); Lymphocytes % 22.5 %; Mean Corpuscular HGB Conc 32.5 g/dL (30.0-36.0); Mean Corpuscular Hemoglobin 27.2 pg (28.0-34.0); Mean Corpuscular Volume 83.6 fl (80-94); Mean Platelet Volume 11.9 fL (7.4-10.4); Monocytes # 0.7 10^3/uL (0.2-0.9); Monocytes % 7.9 %; Neutrophils # 5.78 10^3/uL (1.8-7.7); Neutrophils % 66.8 %; Nucleated Red Blood Cells % 0 %; Platelet Count 189 10^3/cmm (130-400); Red Blood Count 5.19 10^6/uL (4.1-5.3); Red Cell Distribution Width 16.7 % (12.1-15.1); White Blood Count 8.6 10^3/uL (4.0-10.0)
[2021-05-13] MEDS: ondansetron 2 mg/ML SDV 2 mL 4 MG IVP (07:48)
[2021-05-13] MEDS: morphine 4 mg/mL SDV 1 mL IVP (07:49)
[2021-05-13 07:50] LABS: ABG PCO2 35.2 mmHg (35-45); ABG PH Result 7.37 (7.35-7.45); Alveolar-Arterial Oxygen Gradi 11.7 mmHg (5-10); Arterial Blood Gas Hematocrit 43.4 % (42-52); Base Excess ABG -4.4 mmol/L (-2.0-2.0); Blood Gas Allen Test Pos; Blood Gas Operator Identificat CAK; Blood Gas Sample Site Brachial, right; Blood Gas Sample Type Arterial; Carboxyhemoglobin 1.4 %THgb (0.4-20.1); HCO3 ABG 20.2 mmol/L (22-26); HGB O2 Sat 90.6 % (95-100); Ionized Calcium Level - ABG 1.3 mmol/L (1.1-1.4); Methemoglobin 0.8 % (0.4-1.5); Oxygen Device NC; Oxygen Saturation ABG 92.6; Potassium Level - ABG 4.6 mmol/L (3.5-5.0); Total Hemoglobin 14.2 g/dL (14-18)
--- NOTE | 2021-05-13 07:58 | CT_ITS ---
WS: [id number] CT CHEST ANGIOGRAPHY WITH REFORMATS HISTORY: Tachycardia, hypoxia TECHNIQUE: Contiguous axial images are obtained through the chest during arterial injection of intrav enous contrast. Images are reconstructed to evaluate the pulmonary arteries. MIP imaging also reviewe d. All CT scans at [facility] use at least one of these dose optimization techniques: automat ed exposure control; mA and/or kV adjustment per patient size (includes targeted exams where dose is matched to clinical indication); or iterative reconstruction. CONTRAST: Omnipaque 350; 95 mL IV. DLP: 588.23 mGy.cm COMPARISON: 03/07/2021 Good opacification of the pulmonary arteries. No filling defects. Normal size pulmonary artery. Moder ate atherosclerosis thoracic aorta. No aneurysm or dissection. Normal size heart. No pericardial or p leural effusions. Hyperinflated lungs from emphysema. Mild dependent changes at the lung bases. No pneumonia. No medias tinal or hilar adenopathy. Enlarged substernal thyroid. No interval change since the prior examinatio n. Prior cholecystectomy. Hyperplasia LEFT adrenal gland. Diffuse osteopenia. Biconcave fractures long-term stable at L1. Mild anterior wedging of T5 and T6. CT/CT angio chest PE protcl [id number] IMPRESSION: 1. No pulmonary embolism. 2. Moderate atherosclerosis aorta. 3. No mediastinal or hilar adenopathy. 4. Chronic emphysema.
[2021-05-13 08:06] LABS: Alanine Aminotransferase 8 U/L (0-41); Albumin Level 4.3 g/dL (3.5-5.2); Alkaline Phosphatase 66 IU/L (40-130); Anion Gap 19.4 (5-19); Aspartate Amino Transferase 9 U/L (0-40); Blood Urea Nitrogen 23 mg/dL (8-23); Calcium 9.6 mg/dL (8.5-10.5); Carbon Dioxide 19 mmol/L (22-29); Chloride 103 mmol/L (98-107); Creatine Phosphokinase 39 U/L (39-308); Globulin 2.9 g/dL (1.3-4.6); Glucose 145 mg/dL (65-115); NT Pro B Type Natriuretic Pept 206 pg/mL (0-450); Osmolality Calculated 290 mOsm/kg (285-295); Potassium 4.4 mmol/L (3.5-5.1); Sodium 137 mmol/L (136-145); Total Bilirubin 0.4 mg/dL (0.15-1.2); Total Protein 7.2 g/dL (6.6-8.7)
[2021-05-13] MEDS: iohexol 350 mg/mL 100 mL Btl IV (08:26)
--- NOTE | 2021-05-13 08:42 | W.ED.EXTPRO ---
HPI - Extremity Problem General: Chief complaint: Extremity Problem,Nontraumatic Stated complaint: L HIP PAIN Time Seen by Provider: 05/13/21 06:03 History of Present Illness: HPI Narrative: 80-year-old male presents emergency room complaint of left hip and leg pain for the last 3 days. He feels like the pain radiates at his back through his buttock and down the right leg all the way to the foot. He has had similar radicular leg pain on the right in the past. He has seen pain management sounds like they have done nerve blocks with moderate success. He denies any dysuria urgency or frequency. He denies any shortness of breath cough cold symptoms or abdominal pain. He has known atrial fibrillation he is on Eliquis. In route this morning he had 10 mg of morphine and is now requiring oxygen although he is awake and alert. He has been taking his Eliquis regularly. He had a little chest discomfort with this but none at this time. MD Complaint: extremity pain Onset (ago): day(s) (3) Pain Consistency: constant Location: left Quality: sharp and constant Radiation: distal Relieving factors: rest Exacerbating factors: range of motion, weight bearing and walking Associated symptoms: Reports short of breath; Deny arthralgias, chest pain, fever(s), myalgias or rash Review of Systems Const: Denies: fever(s) ENMT: Denies: throat pain, ear or mastoid pain, nasal discharge or nasal congestion Card: Denies: chest pain Resp: Denies: dyspnea, productive cough or non-productive cough GI: Denies: abdominal pain, nausea, vomiting, hematemesis, coffee ground emesis, diarrhea, constipation, bloating, hematochezia or melena : Denies: flank pain, dysuria, urinary frequency or urinary urgency Skin/Breast: Denies: rash PFSH ED PFSH: Medical History COPD (chronic obstructive pulmonary disease) Diabetes mellitus Type 2 Hypertension Neuropathy, idiopathic Primary osteoarthritis of right knee Surgical History History of AAA (abdominal aortic aneurysm) repair Hx of cholecystectomy Hx of eye surgery right S/P right knee arthroscopy twice by Family History Denies family history of Diabetes CAD (coronary artery disease) Clotting disorder Dementia Hyperlipidemia Psychiatric illness Chronic kidney disease (CKD) Suicide Anesthesia complication Bleeding disorder Family history of premature coronary artery disease Lung disease Cancer Hypertension Stroke Social History Smoking and tobacco status: former smoker Quit status (tobacco): has quit using tobacco Year quit tobacco: 3 years ago;2017 Alcohol intake: never Physical Exam Const: COMMON NORMALS: no acute distress GENERAL APPEARANCE: cooperative and comfortable ORIENTATION/CONSCIOUSNESS: Yes awake, Yes oriented to person, Yes oriented to place and Yes oriented to time HENMT: COMMON NORMALS: normocephalic, atraumatic and hearing grossly normal bilaterally HEAD & SCALP: normocephalic and atraumatic Neck/C-Spine: COMMON NORMALS: no JVD Resp: COMMON NORMALS: normal respiratory effort, No retractions, No use of accessory muscles and clear to auscultation bilaterally AUSCULTATION: clear to auscultation bilaterally Cardio: COMMON NORMALS: no JVD, regular rate, regular rhythm and No murmurs present (Cardio) RATE: regular rate RHYTHM: regular rhythm GI: COMMON NORMALS: Soft to palpation and No hepatosplenomegaly present AUSCULTATION: Yes normoactive bowel sounds PALPATION: Yes Soft to palpation, No Tenderness to palpation present (GI), No Guarding due to palpation present (GI) and Yes No hepatosplenomegaly present Extremity: COMMON NORMALS: normal to inspection, capillary refill normal, no clubbing, cyanosis or edema, no calf tenderness and no pedal edema Neuro: SENSORIUM/ORIENTATION: Yes oriented to person, Yes oriented to place and Yes oriented to time Skin: COMMON NORMALS: no rashes or lesions noted GENERAL SKIN EXAM: no rashes or lesions noted Course Vital Signs: Vital signs: Vital Signs Temperature 97.7 F 05/13/21 05:38 Pulse Rate 120 H 05/13/21 11:14 Respiratory Rate 18 05/13/21 11:14 Blood Pressure 114/82 05/13/21 11:14 Pulse Oximetry 91 05/13/21 11:14 MDM - Extremity (Nontraumatic) MDM Narrative: Medical decision making narrative: Pain resolved. Has been ongoing problems time he has no fecal incontinence no urinary retention no sign of significant change on the CT. Reviewed labs and imaging as on the chart. Pain is better will go and discharge home started on prednisone and tizanidine continue the oral pain medication as previously prescribed return if has problems. Lab Data: Labs: Lab Results 05/13/21 05/13/21 05/13/21 05:15 05:15 07:38 WBC 8.6 10^3/uL 10^3/ uL (4.0-10.0) RBC 5.19 10^6/uL 10^6 /uL (4.1-5.3) Hgb 14.1 g/dL g/dL (11.7-16.6) Hct 43.4 % % (42.0-52.0) MCV 83.6 fl fl (80-94) MCH 27.2 pg L pg (28.0-34.0) MCHC 32.5 g/dL g/dL (30.0-36.0) RDW 16.7 % H % (12.1-15.1) Plt Count 189 10^3/cmm 10^3 /cmm (130-400) MPV 11.9 fL H fL (7.4-10.4) Neut % (Auto) 66.8 % % Lymph % (Auto) 22.5 % % [place] % (Auto) 7.9 % % Eos % (Auto) 1.9 % % Baso % (Auto) 0.6 % % Neut # (Auto) 5.78 10^3/uL 10^3 /uL (1.8-7.7) Lymph # (Auto) 1.9 10^3/uL 10^3/ uL (0.8-4.8) [place] # (Auto) 0.7 10^3/uL 10^3/ uL (0.2-0.9) Eos # (Auto) 0.2 10^3/uL 10^3/ uL (0.0-0.8) Baso # (Auto) 0.1 10^3/uL 10^3/ uL (0.0-0.1) Nucleated RBC % (a uto) 0 % % Nucleated RBCs # 0.0 /100WBC /100W BC Specimen Type Arterial Sample Site Brachial, right ABG pH 7.37 (7.35-7.45) ABG pCO2 35.2 mmHg mmHg (35-45) ABG pO2 65.0 mmHg L mmHg (80.0-100.0) ABG HCO3 20.2 mmol/L L mmo l/L (22-26) ABG O2 Saturation 92.6 ABG Base Excess -4.4 mmol/L L mmo l/L (-2.0-2.0) Sumeet Test Pos A-a O2 Gradient 11.7 mmHg H mmHg (5-10) Hematocrit 43.4 % % (42-52) Hgb O2 Saturation 90.6 % L % (95-100) Carboxyhemoglobin 1.4 %THgb %THgb (0.4-20.1) Methemoglobin 0.8 % % (0.4-1.5) Total Hemoglobin 14.2 g/dL g/dL (14-18) Ionized Calcium 1.3 mmol/L mmol/L (1.1-1.4) O2 Delivery Device Nc FiO2 28.0 % % Propeller Driven Airplane Mechanic ID Cak Sodium 137 mmol/L mmol/L 140.0 mmol/L mmol /L (136-145) (131-143) Potassium 4.4 mmol/L mmol/L 4.6 mmol/L mmol/L (3.5-5.1) (3.5-5.0) Chloride 103 mmol/L mmol/L (98-107) Carbon Dioxide 19 mmol/L L mmol/ L (22-29) Anion Gap 19.4 H (5-19) BUN 23 mg/dL mg/dL (8-23) Creatinine 0.9 mg/dL mg/dL (0.7-1.2) GFR Calculation Not Reportable Glucose 145 mg/dL H mg/dL 147.0 mg/dL H mg/ dL (65-115) (70-115) Calculated Osmolal ity 290 mOsm/kg mOsm/ kg (285-295) Lactic Acid Calcium 9.6 mg/dL mg/dL (8.5-10.5) Total Bilirubin 0.4 mg/dL mg/dL (0.15-1.2) AST 9 U/L U/L (0-40) ALT 8 U/L U/L (0-41) Alkaline Phosphata se 66 IU/L IU/L (40-130) Creatine Kinase 39 U/L U/L (39-308) Troponin T Baselin e Troponin T 120 Min toyin Delta Troponin T NT-Pro-B Natriuret Pep 206 pg/mL pg/mL (0-450) Total Protein 7.2 g/dL g/dL (6.6-8.7) Albumin 4.3 g/dL g/dL (3.5-5.2) Globulin 2.9 g/dL g/dL (1.3-4.6) 05/13/21 05/13/21 05/13/21 07:39 07:39 09:51 WBC RBC Hgb Hct MCV MCH MCHC RDW Plt Count MPV Neut % (Auto) Lymph % (Auto) [place] % (Auto) Eos % (Auto) Baso % (Auto) Neut # (Auto) Lymph # (Auto) [place] # (Auto) Eos # (Auto) Baso # (Auto) Nucleated RBC % (a uto) Nucleated RBCs # Specimen Type Sample Site ABG pH ABG pCO2 ABG pO2 ABG HCO3 ABG O2 Saturation ABG Base Excess Sumeet Test A-a O2 Gradient Hematocrit Hgb O2 Saturation Carboxyhemoglobin Methemoglobin Total Hemoglobin Ionized Calcium O2 Delivery Device FiO2 Propeller Driven Airplane Mechanic ID Sodium Potassium Chloride Carbon Dioxide Anion Gap BUN Creatinine GFR Calculation Glucose Calculated Osmolal ity Lactic Acid 1.0 mmol/L mmol/L (0.5-2.2) Calcium Total Bilirubin AST ALT Alkaline Phosphata se Creatine Kinase Troponin T Baselin e 17 ng/L H ng/L (0-15) Troponin T 120 Min [place] 17.33 ng/L H ng/L (0-15) Delta Troponin T 0.33 ABS# ABS# (0-10) NT-Pro-B Natriuret Pep Total Protein Albumin Globulin Discharge Plan Discharge Patient Disposition: Home Clinical Impression: Left lumbar radiculopathy Condition: Stable Prescriptions: New prednisone 20 mg tablet 20 mg PO DAILY Qty: 15 RF: 0 tizanidine 4 mg capsule 4 mg PO Q6H PRN (Reason: muscle spasticity) Qty: 20 RF: 0 No Action Anoro Ellipta 62.5-25 mcg/actuation blister with device 1 inh INHALATION Q24H RF: 0 metformin 500 mg tablet 500 mg PO BID RF: 0 Lumigan 0.01 % drops 1 drop ophthalmic (eye) DAILY RF: 0 Vitamin C 1,000 mg Tablet 1,000 mg PO DAILY RF: 0 Tylenol 325 mg Tablet 325 mg PO QID PRN (Reason: Pain) RF: 0 pravastatin 40 mg tablet 40 mg PO DAILY RF: 0 Iron (ferrous sulfate) 325 mg (65 mg iron) Tablet 325 mg PO DAILY RF: 0 Vitamin D3 25 mcg (1,000 unit) Capsule 25 mcg PO DAILY RF: 0 Multivitamin 50 Plus Tablet 1 tab PO DAILY RF: 0 PreserVision AREDS 7,160 unit- 113 mg-100 unit Tablet 2 tab PO BID RF: 0 gabapentin 300 mg capsule 300 mg PO QID RF: 0 Eliquis 5 mg Tablet 5 mg PO BID@0900,2100 Qty: 60 RF: 0 metoprolol tartrate 25 mg tablet 25 mg PO BID Qty: 60 RF: 0 Discharge Orders: Discharge ED (Routine); Ordered 05/13/21 Ordered By: Miles Villanueva Referrals: Mil Veronica MD [Primary Care Provider] - Discharge Diet: Usual diet Discharge Activity: Limit activity as instructed Patient Instructions: Opioid Safety Coding Level of Care Code ED Helper Metal Hanging for Chg Fwd Exam Comprehensive
--- NOTE | 2021-05-13 08:44 | ECG_ITS ---
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 Measurements Intervals [place] Rate: 116 P: 80 NH: 191 QRS: -83 QRSD: 94 T: 61 QT: 326 QTc: 453 Interpretive Statements SINUS TACHYCARDIA LOW QRS VOLTAGE IN EXTREMITY LEADS [QRS DEFLECTION < 0.5 mV IN LIMB LEADS] PATTERN CONSISTENT WITH PULMONARY DISEASE INFERIOR MYOCARDIAL INFARCTION , PROBABLY OLD [40+ ms Q WAVE AND/OR ST/T ABNORMALITY IN II/aVF] Compared to ECG 03/07/2021 19:00:44 Low QRS voltage now present Atrial fibrillation no longer present Left-axis deviation no longer present Myocardial infarct finding still present Electronically Signed On 05-13-2021 18:31:56 CDT by Timbo Nolasco M.D. [email or web address]
--- NOTE | 2021-05-13 08:44 | CT_ITS ---
WS: [id number] CT LUMBAR SPINE, noncontrast. HISTORY: back pain with R radicular symptoms TECHNIQUE: Contiguous 2.5 mm axial imaging are performed. Sagittal and coronal reformats are submitte d and reviewed. All CT scans at [facility] use at least one of these dose optimization techni ques: automated exposure control; mA and/or kV adjustment per patient size (includes targeted exams w here dose is matched to clinical indication); or iterative reconstruction. IV contrast: None DLP: 2227.83 mGy.cm COMPARISON: None available. RIGHT rotoscoliosis of the lumbar spine. Biconcave fracture at L1 with retropulsion by 3.3 mm. This i s not a new fracture. This fracture was similar in appearance on a prior MRI of 12/01/2019. Severe dege nerative disc disease at L2-3. Vacuum disc phenomenon at L2-3, L4-5 and L5-S1. Marked bilateral facet joint arthritis. L1-2: Mild encroachment on the ventral thecal sac by slight retropulsion of L1. No high-grade stenosi s. L2-3: Osteophytic ridging and annular disc bulging with facet arthritis. Mild central and bilateral f oraminal stenosis. L3-4: Diffuse annular disc bulging asymmetric to the RIGHT. RIGHT subarticular disc protrusion withou t significant stenosis. L4-5: Moderate diffuse asymmetric disc bulging with marked facet and ligamentum flavum hypertrophy. A symmetric widening of the RIGHT facet joint. Moderate central with bilateral subarticular recess sten osis. L5-S1: Diffuse osteophytic ridging around the vertebral bodies. No central stenosis. Severe bilateral foraminal stenosis predominantly due to osteophytes and facet arthritis. Heavy calcification within the aorta. Endovascular aortic iliac graft is noted. No adjacent hematoma. Renal calcifications. CT/CT lumbar spine wo con* [id number] IMPRESSION: 1. Chronic biconcave L1 compression fracture with 3.3 mm retropulsion. No inte rval change since 12/01/2019. 2. Severe bilateral foraminal stenosis L5-S1 due to osteophytes. 3. Moderate central and bilateral subarticular recess stenosis at L4-5. 4. Advanced facet joint arthritis L4-5 and L5-S1. 5. No acute fractures.
[2021-05-13 09:24] LABS: Troponin(5th) Baseline 17 ng/L (0-15)
[2021-05-13 10:34] LABS: Troponin 5 2HR 17.33 ng/L (0-15); Troponin 5 2HR Delta 0.33 ABS# (0-10)
[2021-05-13] MEDS: HYDROmorphone 1 mg/mL INJ 1 mL 0.5 MG IVP (10:40)
[2021-05-13] MEDS: dexamethasone 10 mg/mL INJ IVP (10:43)
== END 2021-05-13 11:15 | disposition home or self-care (01) ==
PROVIDERS: Emergency Provider Family Medicine; PCP Family Medicine
DX: M54.16 Radiculopathy, lumbar region (principal); Z79.84 Long term (current) use of oral hypoglycemic drugs; Z79.01 Long term (current) use of anticoagulants; J44.9 Chronic obstructive pulmonary disease, unspecified; I10 Essential (primary) hypertension; E11.40 Type 2 diabetes mellitus with diabetic neuropathy, unspecified; Z87.891 Personal history of nicotine dependence
CPT/HCPCS: 36415; 36600; 71045; 71275; 72131; 73502; 80051; 80053; 82330; 82550; 82805; 83605; 83880; 84484; 85025; 93005; 96365; 96375; 99284; J1100; J1170; J2270; J2405; Q9967

== ENCOUNTER 2021-05-14 09:39 | Inpatient (IN) | payer MEDICARE, OTHER, SELFPAY ==
[2021-05-14] VITALS (14 sets, daily range): BP systolic 117–181; BP diastolic 68–95; PULSE 75–119; RESP 17–20; TEMP 36.4–36.9; O2SAT 90–95; BMI 29.2; BMI 28.9
--- NOTE | 2021-05-14 10:31 | W.ED.BACK ---
HPI - Back Pain/Injury General: Chief Complaint: Back Pain/Injury Stated Complaint: leg pain History of Present Illness: HPI Narrative: 80-year-old male presents emergency room with complaint of back pain radiating to his left leg. He does have somewhat difficult time urinating as well. He was seen yesterday with severe back pain he has had a previous MRI scheduled to see someone for evaluation later this week. He tried various medicines at home and they were not working so he presented to the emergency room mid stating that he plans to continue to return to the emergency room until he sees the surgeon of scheduled appointment next week. MD elicited complaint: back pain Pertinent past history: prior back pain Onset (ago): week(s) Timing: constant Severity: severe Quality: sharp Location: lumbar spine Radiation: left leg below the knee Exacerbating factors: movement, sitting upright and walking Relieving factors: immobilization and supine Associated symptoms: Reports difficulty walking; Deny abdominal pain, arthralgias, chills, change in bowel habits, dysuria, fatigue, fecal incontinence, fever(s), hematuria, myalgias, nausea, numbness, syncope, tingling/numbness/burning, urinary frequency, urinary urgency, vomiting or weakness Work related injury: No Review of Systems Const: Denies: fever(s), chills or fatigue ENMT: Denies: throat pain, ear or mastoid pain, nasal discharge or nasal congestion Card: Denies: syncope Resp: Denies: dyspnea, productive cough or non-productive cough GI: Denies: abdominal pain, nausea, vomiting, fecal incontinence or change in bowel habits : Denies: dysuria, urinary urgency or hematuria Skin/Breast: Denies: rash or pruritus Neuro: Reports: difficulty walking PFSH ED PFSH: Medical History COPD (chronic obstructive pulmonary disease) Diabetes mellitus Type 2 Hypertension Neuropathy, idiopathic Primary osteoarthritis of right knee Surgical History History of AAA (abdominal aortic aneurysm) repair Hx of cholecystectomy Hx of eye surgery right S/P right knee arthroscopy twice by Family History Denies family history of Diabetes CAD (coronary artery disease) Clotting disorder Dementia Hyperlipidemia Psychiatric illness Chronic kidney disease (CKD) Suicide Anesthesia complication Bleeding disorder Family history of premature coronary artery disease Lung disease Cancer Hypertension Stroke Social History Smoking and tobacco status: former smoker Quit status (tobacco): has quit using tobacco Year quit tobacco: 3 years ago;2017 Alcohol intake: never Physical Exam Const: COMMON NORMALS: no acute distress GENERAL APPEARANCE: cooperative and comfortable ORIENTATION/CONSCIOUSNESS: Yes awake, Yes oriented to person, Yes oriented to place and Yes oriented to time HENMT: COMMON NORMALS: normocephalic, atraumatic and hearing grossly normal bilaterally HEAD & SCALP: normocephalic and atraumatic Neck/C-Spine: COMMON NORMALS: no JVD Resp: COMMON NORMALS: normal respiratory effort, No retractions, No use of accessory muscles and clear to auscultation bilaterally AUSCULTATION: clear to auscultation bilaterally Cardio: COMMON NORMALS: no JVD, regular rate, regular rhythm and No murmurs present (Cardio) RATE: regular rate RHYTHM: regular rhythm GI: COMMON NORMALS: Soft to palpation and No hepatosplenomegaly present AUSCULTATION: Yes normoactive bowel sounds PALPATION: Yes Soft to palpation, No Tenderness to palpation present (GI), No Guarding due to palpation present (GI) and Yes No hepatosplenomegaly present Extremity: COMMON NORMALS: normal to inspection, capillary refill normal, no clubbing, cyanosis or edema, no calf tenderness and no pedal edema Neuro: SENSORIUM/ORIENTATION: Yes oriented to person, Yes oriented to place and Yes oriented to time OTHER: Dorsal plantar flexion and left foot 5 of 5 straight leg raising positive sensation normal Skin: COMMON NORMALS: no rashes or lesions noted GENERAL SKIN EXAM: no rashes or lesions noted Course Vital Signs: Vital signs: Vital Signs Temperature 98.5 F 05/14/21 09:46 Pulse Rate 116 H 05/14/21 14:44 Respiratory Rate 20 H 05/14/21 14:44 Blood Pressure 152/95 05/14/21 14:44 Pulse Oximetry 91 05/14/21 14:44 MDM - Back Pain/Injury MDM Narrative: Medical decision making narrative: Patient is failing outpatient management at this point. Worsening go ahead and admit him to the hospitalist for pain control discussed Dr. Rivero he will see and evaluate the patient in anticipation of intervention in 2 days on Sunday. Discussed with Dr. Mustafa and with Dr. Rivero. Lab Data: Labs: Lab Results 05/14/21 13:13 POC Glucose 126 mg/dL H mg/dL (70-110) Discharge Plan Discharge Patient Disposition: Admitted As Inpatient Admit Provider: Sumaya Mustafa Clinical Impression: Left lumbar radiculopathy Condition: Stable Coding Level of Care Code ED Director Independent for Chg Fwd Exam Comprehensive
[2021-05-14] MEDS: ondansetron 2 mg/ML SDV 2 mL 4 MG IVP (11:15)
[2021-05-14] MEDS: morphine 4 mg/mL SDV 1 mL 6 MG IVP (11:16)
--- NOTE | 2021-05-14 11:30 | MRR_ITS ---
PROCEDURE INFORMATION: Exam: MR Lumbar Spine Without Contrast Exam date and time: 05/14/2021 11:30 AM Age: 80 years old Clinical indication: Low back pain; Additional info: Back pain, urinary retention TECHNIQUE: Imaging protocol: Multiplanar magnetic resonance images of the lumbar spine without intravenous contrast. COMPARISON: CT lumbar spine wo con* [id number] 05/13/2021 9:01 AM FINDINGS: Vertebrae: There are scattered benign hemangiomas in the visualized osseous structures. Chronic L1 burst fracture, unchanged from the prior CT scan. Spinal cord: Normal signal. No cord compression. L1-L2: No significant disc disease. No significant spinal canal stenosis. No neural foraminal stenosis. L2-L3: There are posterior osteophytes and severe facet arthropathy. Moderate bilateral neural foraminal narrowing. Canal is within normal limits in caliber. L3-L4: Minimal broad-based disc osteophyte complex with no significant canal or neural foramina stenosis. L4-L5: There are posterior osteophytes and very severe facet arthropathy. Moderate bilateral neural foraminal narrowing without obvious compression of the exiting nerve roots. L5-S1: There are posterior osteophytes and severe facet arthropathy contributing to severe bilateral neural foraminal narrowing with possible compression of the exiting L5 nerve roots. Soft tissues: Unremarkable. MR/MR lumbar spine wo con* [id number] IMPRESSION: 1. Chronic L1 burst fracture unchanged from the prior CT scan. 2. Multilevel, multifactorial degenerative changes as described above. Posterior osteophytes and severe facet arthropathy contribute to severe bilateral neural foraminal narrowing at the L5-S1 level with possible compression of the exiting L5 nerve roots. Radiation Dose CTDIVOL = (mGy): DLP = (mGy-cm)
--- NOTE | 2021-05-14 11:30 | PC.NURSE ---
Bladder scan performed. 319mls of urine noted. ERP made aware.
[2021-05-14] MEDS: morphine 4 mg/mL SDV 1 mL IVP ×3 (12:10→19:29)
[2021-05-14 13:29] LABS: Glucose Point of Care 126 mg/dL (70-110)
--- NOTE | 2021-05-14 16:15 | PM.HP ---
Providers/Chief Complaint Admitting Physician: Sumaya Mustafa MD Primary Care Provider: Mil Veronica MD Chief Complaint: leg pain History of Present Illness Brandon Gracia is a 80 year old male with past medical history of COPD, diabetes mellitus type 2, hypertension, neuropathy, osteoarthritis of right knee, atrial fibrillation with RVR, rib fractures secondary to a fall in February, abdominal aortic aneurysm status post repair, who presented to the hospital with complaint of back pain radiating down to his left leg. He also complained of some difficulty urinating. He actually presented to the ER yesterday with severe back pain. He was supposed to be seen for evaluation this week at some point but he presented back to the ER due to pain. Another reason to come back was that he stated he will continue coming to the ER until he sees a surgeon of scheduled appointment. For patient's atrial fibrillation he takes metoprolol tartrate at home along with Eliquis. ED course: On arrival blood pressure 152/95, respiratory rate 20, pulse rate 116, temperature 98.5, saturating 91% on room air. Orthopedic surgery was called and plan is to most likely operate on Sunday. Imaging was done in the ER which showed the following: MRI lumbar spine shows chronic L1 burst fracture unchanged from prior CT scan. Multilevel multifactorial degenerative changes as described above. Posterior osteophytes and severe facet arthropathy contribute to severe bilateral neural foraminal narrowing at L5-S1 level with possible compression of exiting L5 nerve roots CTA ruled out pulmonary embolism Chart review: Last echo February 2021: Mild diffuse hypokinesia of the septum and LV apex. Left ventricular ejection fraction 49%. Minimally thickened mitral valve with trace mitral regurg. Thickened aortic valve. 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 Review of Systems General: Reports: 10 or more systems reviewed and unremarkable except in HPI and below Medications/Allergies Home Medications Medication Instructions Recorded Confirmed Last Taken Type bimatoprost 0.01 % eye drops 1 drop OPHTHALMIC (EYE) DAILY 08/12/19 05/14/21 03/06/21 History metformin 500 mg tablet 500 mg PO BID 08/12/19 05/14/21 05/13/21 History umeclidinium 62.5 mcg-vilanterol 1 inh INHALATION Q24H 08/12/19 05/14/21 05/13/21 History 25 mcg/actuation powdr for inhalation Multivitamin 50 Plus 1 tab PO DAILY 03/07/21 05/14/21 05/13/21 History PreserVision AREDS 2 tab PO BID 03/07/21 05/14/21 05/13/21 History acetaminophen [Tylenol] 325 mg PO QID PRN 03/07/21 05/14/21 Unknown History ascorbic acid (vitamin C) [Vitamin 1,000 mg PO DAILY 03/07/21 05/14/21 05/13/21 History C] cholecalciferol (vitamin D3) 25 mcg PO DAILY 03/07/21 05/14/21 05/13/21 History [Vitamin D3] ferrous sulfate [Iron (ferrous 325 mg PO DAILY 03/07/21 05/14/21 05/13/21 History sulfate)] gabapentin 300 mg PO QID 03/07/21 05/14/21 05/13/21 History pravastatin 40 mg PO DAILY 03/07/21 05/14/21 05/13/21 History apixaban [Eliquis] 5 mg PO BID@0900,2100 #60 tab 03/11/21 05/14/21 05/13/21 Rx metoprolol tartrate 25 mg PO BID #60 tab 03/11/21 05/14/21 05/13/21 Rx prednisone 20 mg PO DAILY #15 tab 05/13/21 05/14/21 05/13/21 Rx tizanidine 4 mg PO Q6H PRN #20 cap 05/13/21 05/14/21 Unknown Rx hydrocodone-acetaminophen 1 tab PO Q8H PRN 05/14/21 05/14/21 Unknown History lisinopril 30 mg PO DAILY 05/14/21 05/14/21 05/13/21 History minocycline 100 mg PO DAILY 05/14/21 05/14/21 05/13/21 History oxycodone-acetaminophen 1 tab PO Q8H PRN 05/14/21 05/14/21 Unknown History spironolactone 25 mg PO DAILY 05/14/21 05/14/21 05/13/21 History Allergies Allergy/AdvReac Type Severity Reaction Status Date / Time No Known Allergies Allergy Verified 05/14/21 09:46 PFSH Acute PFSH: Medical History COPD (chronic obstructive pulmonary disease) Diabetes mellitus Type 2 Hypertension Neuropathy, idiopathic Primary osteoarthritis of right knee Surgical History History of AAA (abdominal aortic aneurysm) repair Hx of cholecystectomy Hx of eye surgery right S/P right knee arthroscopy twice by Family History Denies family history of Diabetes CAD (coronary artery disease) Clotting disorder Dementia Hyperlipidemia Psychiatric illness Chronic kidney disease (CKD) Suicide Anesthesia complication Bleeding disorder Family history of premature coronary artery disease Lung disease Cancer Hypertension Stroke Social History Smoking and tobacco status: former smoker Quit status (tobacco): has quit using tobacco Year quit tobacco: 3 years ago;2017 Alcohol intake: never Vitals/I&O/Wt Last Vital Signs Temp 98.5 F 05/14/21 09:46 Pulse 116 H 05/14/21 14:44 Resp 20 H 05/14/21 14:44 BP 152/95 05/14/21 14:44 Pulse Ox 91 05/14/21 14:44 Weight last 48 hrs Weight 84.822 kg Physical Exam Narrative: EXAM NARRATIVE: General: Alert oriented x3, patient seen laying in bed HEENT: Normocephalic, atraumatic, EOMI, breathing comfortably Cardio: Regular rate rhythm, normal S1-S2, no murmurs rubs gallops, Respiratory: Good bilateral air entry, no wheezes no rhonchi appreciated GI: Abdomen soft, nontender, nondistended, bowel sounds + Behavior: Appropriate and cooperative Extremities: Pulses 2+, no edema, no cyanosis Data : 05/15/21 06:36 05/15/21 06:36 A&P Assessment and plan (1) Left lumbar radiculopathy: Status: Acute (2) Hypertension: Status: Acute (3) Diabetes mellitus: Status: Acute (4) COPD (chronic obstructive pulmonary disease): Status: Acute (5) Atrial fibrillation: Status: Acute Additional A&P Information #Left lumbar radiculopathy Patient presents with back pain radiating to left leg. MRI did show foraminal narrowing L5-S1. Plan is to take him for surgery this upcoming Sunday with Dr. Rivero. He has been consulted from ER. #Hypertension -continue home medication #Atrial fibrillation -continue beta-katelyn, will hold eliquis #Diabetes mellitus -sliding scale insulin #COPD -does not appear to be in COPD exacerbation at this time. We will continue DuoNeb every 6 hours as needed. Due to patient's reduced ejection fraction mitral regurgitation, old inferior FL on EKG we will obtain cardiac clearance for surgery. Fluids: Not indicated Electrolytes: Replete as needed Nutrition: Cardiac diet Activity: As tolerated DVT prophylaxis: SCD Attestations Medical Necessity Statement*: requires > 48 hours of hospital stay. Surgery on 05/16 Time Spent in Patient Care: 16 - 35 minutes Coding Level of Care Code Acute Digital Strategist Senior Manager for [facility] Fwd Diagnoses Left lumbar radiculopathy M54.16 Hypertension I10 Diabetes mellitus E11.9 COPD (chronic obstructive pulmonary disease) J44.9 Atrial fibrillation I48.91
--- NOTE | 2021-05-14 16:30 | ECG_ITS ---
[facility] Test Date: 2021-05-14 Pat Name: Brandon Gracia Department: Room: 252 Gender: Male Lead Caregiver: ULICES: 1940 Requested By: Sumaya Mustafa Order Number: [id number] Roberta MD: Marina Horne M.D. Measurements Intervals [place] Rate: 93 P: -8 CA: 206 QRS: -39 QRSD: 102 T: 60 QT: 325 QTc: 406 Interpretive Statements SINUS RHYTHM LEFT AXIS DEVIATION [QRS AXIS < -30] Compared to ECG 05/13/2021 09:55:16 Left-axis deviation now present Sinus tachycardia no longer present Myocardial infarct finding no longer present Electronically Signed On 05-15-2021 21:29:23 CDT by Marina Horne M.D. [id number]
[2021-05-14] MEDS: pantoprazole 40 mg SDV IVP (16:40)
--- NOTE | 2021-05-14 17:15 | PM.CONSULT ---
Providers/Reason For Consult Consulting Physician/Specialty*: Dr. Horne, cardiology Reason for Consult*: Preop cardiac clearance for back surgery Attending Physician: Sumaya Mustafa MD Primary Care Provider: Mil Veronica MD History of Present Illness History of Present Illness Brandon Gracia is a 80 year old male with past medical history of hypertension, type II diabetes mellitus, diabetic neuropathy, Paroxysmal atrial fibrillation on Eliquis diagnosed in 02/2021, history of abdominal aortic aneurysm repair, COPD and osteoarthritis. He has no prior history of known coronary artery disease or MN. He had a fall in February 2021 and was diagnosed to have some rib fractures. He came to the ER yesterday and then again today with complaints of lower back pain with radiation down his left lower extremity. On arrival to ER his blood pressure was 152/95. MRI lumbar spine was done which showed chronic L1 burst fracture unchanged from prior CT scanning. Multilevel multifactorial degenerative changes were noted. Posterior osteophytes and severe facet arthropathy with severe bilateral neural foraminal narrowing at L5-S1 level with possible compression of exiting L5 nerve roots were noted. CT was done yesterday which ruled out pulmonary embolism. He lives by himself. He is able to cook and do some cleaning around the house. He does his own grocery shopping. He has a yard that he mows and takes care off. He does not have any steps in house but is able to walk a block on level ground. For past 2 weeks, his activities have been limited due to lower back and leg pain. He denies any chest pain, SOB or palpitations. No prior h/o CAD or CVA. EKG showed sinus rhythm, low QRS voltage in precordial leads. Inferior MN, probably old. Review of Systems General: Reports: 10 or more systems reviewed and unremarkable except in HPI and below Const: Denies: fever(s) or chills ENMT: Denies: epistaxis Card: Denies: chest pain, palpitations, irregular heart rhythm, dyspnea on exertion or orthopnea Resp: Denies: dyspnea GI: Denies: hematochezia Musc: Reports: back pain and extremity pain; Denies: extremity swelling Skin/Breast: Denies: rash Psych: Denies: anxiety or depression Rafael/Lymph: Denies: petechiae or purpura Meds/Allergies Home Medications and Allergies Home Medications Medication Instructions Recorded Confirmed Last Taken Type bimatoprost 0.01 % eye drops 1 drop OPHTHALMIC (EYE) DAILY 08/12/19 05/14/21 03/06/21 History metformin 500 mg tablet 500 mg PO BID 08/12/19 05/14/21 05/13/21 History umeclidinium 62.5 mcg-vilanterol 1 inh INHALATION Q24H 08/12/19 05/14/21 05/13/21 History 25 mcg/actuation powdr for inhalation Multivitamin 50 Plus 1 tab PO DAILY 03/07/21 05/14/21 05/13/21 History PreserVision AREDS 2 tab PO BID 03/07/21 05/14/21 05/13/21 History acetaminophen [Tylenol] 325 mg PO QID PRN 03/07/21 05/14/21 Unknown History ascorbic acid (vitamin C) [Vitamin 1,000 mg PO DAILY 03/07/21 05/14/21 05/13/21 History C] cholecalciferol (vitamin D3) 25 mcg PO DAILY 03/07/21 05/14/21 05/13/21 History [Vitamin D3] ferrous sulfate [Iron (ferrous 325 mg PO DAILY 03/07/21 05/14/21 05/13/21 History sulfate)] gabapentin 300 mg PO QID 03/07/21 05/14/21 05/13/21 History pravastatin 40 mg PO DAILY 03/07/21 05/14/21 05/13/21 History apixaban [Eliquis] 5 mg PO BID@0900,2100 #60 tab 03/11/21 05/14/21 05/13/21 Rx metoprolol tartrate 25 mg PO BID #60 tab 03/11/21 05/14/21 05/13/21 Rx prednisone 20 mg PO DAILY #15 tab 05/13/21 05/14/21 05/13/21 Rx tizanidine 4 mg PO Q6H PRN #20 cap 05/13/21 05/14/21 Unknown Rx hydrocodone-acetaminophen 1 tab PO Q8H PRN 05/14/21 05/14/21 Unknown History lisinopril 30 mg PO DAILY 05/14/21 05/14/21 05/13/21 History minocycline 100 mg PO DAILY 05/14/21 05/14/21 05/13/21 History oxycodone-acetaminophen 1 tab PO Q8H PRN 05/14/21 05/14/21 Unknown History spironolactone 25 mg PO DAILY 05/14/21 05/14/21 05/13/21 History Allergies Allergy/AdvReac Type Severity Reaction Status Date / Time No Known Allergies Allergy Verified 05/14/21 09:46 Current Medications Current Medications Generic Name Dose Route Start Last Admin Trade Name Freq PRN Reason Stop Dose Admin Pantoprazole Sodium 40 mg 05/14/21 16:30 05/14/21 16:40 Pantoprazole 40 Mg Sdv IVP 40 mg Q24H MIKO Administration PFSH Acute PFSH: Medical History COPD (chronic obstructive pulmonary disease) Diabetes mellitus Type 2 Hypertension Neuropathy, idiopathic Primary osteoarthritis of right knee Surgical History History of AAA (abdominal aortic aneurysm) repair Hx of cholecystectomy Hx of eye surgery right S/P right knee arthroscopy twice by Family History Denies family history of Diabetes CAD (coronary artery disease) Clotting disorder Dementia Hyperlipidemia Psychiatric illness Chronic kidney disease (CKD) Suicide Anesthesia complication Bleeding disorder Family history of premature coronary artery disease Lung disease Cancer Hypertension Stroke Social History Smoking and tobacco status: former smoker Quit status (tobacco): has quit using tobacco Year quit tobacco: 3 years ago;2016 Alcohol intake: never Vitals/I&O/Wt Last Vital Signs Temp 97.5 F L 05/14/21 16:28 Pulse 110 H 05/14/21 16:28 Resp 19 H 05/14/21 16:28 BP 147/76 05/14/21 16:28 Pulse Ox 95 05/14/21 16:28 Weight last 48 hrs Weight 184 lb 9 oz Weight 187 lb Physical Exam Narrative: EXAM NARRATIVE: GENERAL: Averagely built and averagely nourished in no acute distress HEENT: Pupils equal round reactive to light. No pallor or icterus. NECK: No JVD. No carotid bruit. CARDIOVASCULAR SYSTEM: S1-S2 regular. No murmur or gallops. RESPIRATORY SYSTEM: Chest clear to auscultation. No wheezes rhonchi or rubs heard. No use of accessory muscles. ABDOMEN: Soft, nontender and nondistended. Normal bowel sounds present. EXTREMITIES: No cyanosis. No edema. No signs of chronic venous insufficiency. ACADEMIC ADVISING DIRECTOR: Patient is alert oriented ?3. No focal neurological deficits. Data Other Data: Other data: Transthoracic echocardiogram 11 March 2021 CONCLUSIONS Mild diffuse hypokinesia of the septum and the LV apex. Left ventricular ejection fraction around 49%. Minimally thickened mitral valve with a trace of mitral regurgitation. Thickened aortic valve. Trace tricuspid valve regurgitation. There is no pericardial effusion. There are no intracardiac masses. No previous similar studies available for comparison. A&P Assessment and plan (1) Encounter for pre-operative cardiovascular clearance: Functional status >4 METs -No chest pain, decompensated CHF or ACS or valvular disease. -No acute EKG changes. -May proceed with back sx with acceptable risk on anesthesia. I discussed this in detail with patient and he is agreeable. Status: Acute (2) Atrial fibrillation: On Eliquis (held for sx) -continue metoprolol Status: Acute Qualifiers: Atrial fibrillation type: paroxysmal Qualified Code(s): I48.0 - Paroxysmal atrial fibrillation (3) Hypertension: Status: Acute Qualifiers: Hypertension type: primary hypertension Qualified Code(s): I10 - Essential (primary) hypertension (4) Left lumbar radiculopathy: Status: Acute (5) Spondylolisthesis at L4-L5 level: Status: Acute Additional A&P Information AAA s/p Endovascular aortic iliac graft: No adjacent hematoma on recent imaging DM-2 Dyslipidemia COPD Thank you for allowingme to participate in patient's care. Please feel free to call with questions or concerns. Consult Attestations Time Spent in Patient Care: 16 - 35 minutes (>than 50% of time spent in counselling and/or direct pt care on unit). Coding Level of Care Code Acute Manager Developmental for [facility] Diagnoses Encounter for pre-operative cardiovascular clearance Z01.810 Atrial fibrillation I48.0 Atrial fibrillation type: paroxysmal Hypertension I10 Hypertension type: primary hypertension Left lumbar radiculopathy M54.16 Spondylolisthesis at L4-L5 level M43.16
[2021-05-14] MEDS: gabapentin 300 mg Capsule PO ×2 (17:24→20:21)
[2021-05-14] MEDS: metoprolol tartrate 25 mg Tablet PO (20:21)
[2021-05-15] VITALS (17 sets, daily range): BP systolic 113–143; BP diastolic 62–84; PULSE 68–114; RESP 16–20; TEMP 36.3–37.1; O2SAT 84–96
[2021-05-15 07:13] LABS: Basophils % 0.3 %; Eosinophils % 0.2 %; Hemoglobin 12.5 g/dL (11.7-16.6); Lymphocytes # 2.1 10^3/uL (0.8-4.8); Lymphocytes % 20.7 %; Mean Corpuscular HGB Conc 32.1 g/dL (30.0-36.0); Mean Corpuscular Hemoglobin 27.4 pg (28.0-34.0); Mean Corpuscular Volume 85.5 fl (80-94); Mean Platelet Volume 10.7 fL (7.4-10.4); Monocytes # 0.8 10^3/uL (0.2-0.9); Monocytes % 8.2 %; Neutrophils # 6.95 10^3/uL (1.8-7.7); Neutrophils % 70.3 %; Nucleated Red Blood Cells % 0 %; Platelet Count 169 10^3/cmm (130-400); Red Blood Count 4.56 10^6/uL (4.1-5.3); Red Cell Distribution Width 16.9 % (12.1-15.1); White Blood Count 9.9 10^3/uL (4.0-10.0)
[2021-05-15 07:22] LABS: INR 1.11 (0.8-1.2)
[2021-05-15 07:52] LABS: Anion Gap 17.1 (5-19); Blood Urea Nitrogen 38 mg/dL (8-23); Calcium 9.6 mg/dL (8.5-10.5); Carbon Dioxide 23 mmol/L (22-29); Chloride 105 mmol/L (98-107); Glucose 114 mg/dL (65-115); Magnesium 1.8 mg/dL (1.7-2.3); Osmolality Calculated 300 mOsm/kg (285-295); Potassium 5.1 mmol/L (3.5-5.1); Sodium 140 mmol/L (136-145)
[2021-05-15] MEDS: morphine 4 mg/mL SDV 1 mL IVP ×5 (07:54→23:49)
[2021-05-15] MEDS: metoprolol tartrate 25 mg Tablet PO ×2 (07:56→20:47)
[2021-05-15] MEDS: spironolactone 25 mg Tablet PO (07:56)
[2021-05-15] MEDS: lisinopril 20 mg Tablet 30 MG PO (07:56)
[2021-05-15] MEDS: atorvastatin 40 mg Tablet 20 MG PO (07:56)
[2021-05-15] MEDS: ferrous sulfate EC 325 mg Tablet PO (07:57)
[2021-05-15] MEDS: gabapentin 300 mg Capsule PO ×4 (07:57→20:07)
[2021-05-15 08:02] LABS: NT Pro B Type Natriuretic Pept 299 pg/mL (0-450)
--- NOTE | 2021-05-15 09:03 | P.PN_ITS ---
Subjective Subjective: Interval history: Seen this morning. He has been cleared by cardiology for surgery. He will be going for surgery tomorrow. Patient offers no complaints at this time. Vitals/I&O/Wt Last Vital Signs Temp 98.6 F 05/15/21 08:00 Pulse 114 H 05/15/21 08:00 Resp 18 05/15/21 08:00 BP 143/79 05/15/21 08:00 Pulse Ox 84 L 05/15/21 08:00 05/14/21 05/15/21 05/15/21 22:59 06:59 14:59 Intake Total 500 / 500 Output Total 0 / 0 Balance 500 / 500 0 / 500 Weight last 48 hrs Weight 83.716 kg Weight 84.822 kg Physical Exam Narrative: EXAM NARRATIVE: General: Alert oriented x3, patient seen laying in bed HEENT: Normocephalic, atraumatic, EOMI, breathing comfortably Cardio: Regular rate rhythm, normal S1-S2, no murmurs rubs gallops, Respiratory: Good bilateral air entry, no wheezes no rhonchi appreciated GI: Abdomen soft, nontender, nondistended, bowel sounds + Behavior: Appropriate and cooperative Extremities: Pulses 2+, no edema, no cyanosis Data : 05/15/21 06:36 05/15/21 06:36 A&P Assessment and plan (1) Left lumbar radiculopathy: Status: Acute (2) Hypertension: Status: Acute Qualifiers: Hypertension type: primary hypertension Qualified Code(s): I10 - Essential (primary) hypertension (3) Diabetes mellitus: Status: Acute (4) COPD (chronic obstructive pulmonary disease): Status: Acute (5) Atrial fibrillation: Status: Acute Qualifiers: Atrial fibrillation type: paroxysmal Qualified Code(s): I48.0 - Paroxysmal atrial fibrillation Additional A&P Information #Left lumbar radiculopathy Patient presents with back pain radiating to left leg. MRI did show foraminal narrowing L5-S1. Patient will go for surgery in a.m. with Dr. Rivero. N.p.o. at midnight tonight. Eliquis held. #Hypertension -continue home medication #Atrial fibrillation -continue beta-katelyn, will hold eliquis #Diabetes mellitus -sliding scale insulin #COPD -does not appear to be in COPD exacerbation at this time. We will continue DuoNeb every 6 hours as needed. Due to patient's reduced ejection fraction mitral regurgitation, old inferior MT on EKG. cardiology has cleared him for surgery. Fluids: Not indicated Electrolytes: Replete as needed Nutrition: N.p.o. at midnight tonight. Activity: As tolerated DVT prophylaxis: SCD Attestations Medical Necessity Statement*: Surgery in a.m. Expected to stay here greater than 48 hours. Coding Level of Care Code Acute Knot Tying Operator for [facility] Fwd Diagnoses Left lumbar radiculopathy M54.16 Hypertension I10 Hypertension type: primary hypertension Diabetes mellitus E11.9 COPD (chronic obstructive pulmonary disease) J44.9 Atrial fibrillation I48.0 Atrial fibrillation type: paroxysmal
--- NOTE | 2021-05-15 10:39 | PM.CONSULT ---
Providers/Reason For Consult Consulting Physician/Specialty*: hospitalist Reason for Consult*: L4/5 spondylolisthesis ; pain ; urinary retention Attending Physician: Sumaya Mustafa MD Primary Care Provider: Mil Veronica MD History of Present Illness History of Present Illness Brandon Gracia is a 80 year old male with past medical history of COPD, diabetes mellitus type 2, hypertension, neuropathy, osteoarthritis of right knee, atrial fibrillation with RVR, rib fractures secondary to a fall in February, abdominal aortic aneurysm status post repair, who presented to the hospital with complaint of back pain radiating down to his left leg. He also complained of some difficulty urinating. He actually presented to the ER yesterday with severe back pain. He was supposed to be seen for evaluation this week at some point but he presented back to the ER due to pain. Another reason to come back was that he stated he will continue coming to the ER until he sees a surgeon of scheduled appointment. For patient's atrial fibrillation he takes metoprolol tartrate at home along with Eliquis. ED course: On arrival blood pressure 152/95, respiratory rate 20, pulse rate 116, temperature 98.5, saturating 91% on room air. Orthopedic surgery was called and plan is to most likely operate on Sunday. Imaging was done in the ER which showed the following: MRI lumbar spine shows chronic L1 burst fracture unchanged from prior CT scan. Multilevel multifactorial degenerative changes as described above. Posterior osteophytes and severe facet arthropathy contribute to severe bilateral neural foraminal narrowing at L5-S1 level with possible compression of exiting L5 nerve roots Review of Systems General: Reports: 10 or more systems reviewed and unremarkable except in HPI and below Const: Denies: fever(s), chills or fatigue Eyes: Denies: photophobia ENMT: Denies: throat pain, enlarged tonsils, ear or mastoid pain, nasal discharge, nasal congestion or epistaxis Card: Denies: chest pain, palpitations, irregular heart rhythm, syncope, dyspnea on exertion or orthopnea Resp: Denies: dyspnea, productive cough or non-productive cough GI: Denies: abdominal pain, nausea, vomiting, fecal incontinence, change in bowel habits or hematochezia : Denies: dysuria, urinary urgency or hematuria Musc: Reports: back pain and extremity pain; Denies: extremity swelling or joint warmth Skin/Breast: Denies: rash or pruritus Neuro: Reports: difficulty walking Psych: Denies: anxiety or depression Rafael/Lymph: Denies: petechiae or purpura Meds/Allergies Home Medications and Allergies Home Medications Medication Instructions Recorded Confirmed Last Taken Type bimatoprost 0.01 % eye drops 1 drop OPHTHALMIC (EYE) DAILY 08/12/19 05/14/21 03/06/21 History metformin 500 mg tablet 500 mg PO BID 08/12/19 05/14/21 05/13/21 History umeclidinium 62.5 mcg-vilanterol 1 inh INHALATION Q24H 08/12/19 05/14/21 05/13/21 History 25 mcg/actuation powdr for inhalation Multivitamin 50 Plus 1 tab PO DAILY 03/07/21 05/14/21 05/13/21 History PreserVision AREDS 2 tab PO BID 03/07/21 05/14/21 05/13/21 History acetaminophen [Tylenol] 325 mg PO QID PRN 03/07/21 05/14/21 Unknown History ascorbic acid (vitamin C) [Vitamin 1,000 mg PO DAILY 03/07/21 05/14/21 05/13/21 History C] cholecalciferol (vitamin D3) 25 mcg PO DAILY 03/07/21 05/14/21 05/13/21 History [Vitamin D3] ferrous sulfate [Iron (ferrous 325 mg PO DAILY 03/07/21 05/14/21 05/13/21 History sulfate)] gabapentin 300 mg PO QID 03/07/21 05/14/21 05/13/21 History pravastatin 40 mg PO DAILY 03/07/21 05/14/21 05/13/21 History apixaban [Eliquis] 5 mg PO BID@0900,2100 #60 tab 03/11/21 05/14/21 05/13/21 Rx metoprolol tartrate 25 mg PO BID #60 tab 03/11/21 05/14/21 05/13/21 Rx prednisone 20 mg PO DAILY #15 tab 05/13/21 05/14/21 05/13/21 Rx tizanidine 4 mg PO Q6H PRN #20 cap 05/13/21 05/14/21 Unknown Rx hydrocodone-acetaminophen 1 tab PO Q8H PRN 05/14/21 05/14/21 Unknown History lisinopril 30 mg PO DAILY 05/14/21 05/14/21 05/13/21 History minocycline 100 mg PO DAILY 05/14/21 05/14/21 05/13/21 History oxycodone-acetaminophen 1 tab PO Q8H PRN 05/14/21 05/14/21 Unknown History spironolactone 25 mg PO DAILY 05/14/21 05/14/21 05/13/21 History Allergies Allergy/AdvReac Type Severity Reaction Status Date / Time No Known Allergies Allergy Verified 05/14/21 09:46 Current Medications Current Medications Generic Name Dose Route Start Last Admin Trade Name Freq PRN Reason Stop Dose Admin Atorvastatin Calcium 20 mg 05/15/21 09:00 05/15/21 07:56 Atorvastatin 40 Mg Tablet PO 20 mg DAILY MIKO Administration Ferrous Sulfate 325 mg 05/15/21 09:00 05/15/21 07:57 Ferrous Sulfate Ec 325 Mg Tablet PO 325 mg DAILY MIKO Administration Gabapentin 300 mg 05/14/21 17:00 05/15/21 07:57 Gabapentin 300 Mg Capsule PO 300 mg QID MIKO Administration Lisinopril 30 mg 05/15/21 09:00 05/15/21 07:56 Lisinopril 20 Mg Tablet PO 30 mg DAILY MIKO Administration Metoprolol Tartrate 25 mg 05/14/21 21:00 05/15/21 07:56 Metoprolol Tartrate 25 Mg Tablet PO 25 mg BID@0900,2100 MIKO Administration Morphine Sulfate 4 mg 05/14/21 16:14 05/15/21 07:54 Morphine 4 Mg/Ml Sdv 1 Ml IVP 4 mg Q4H PRN Administration SEVERE PAIN Pantoprazole Sodium 40 mg 05/14/21 16:30 05/14/21 16:40 Pantoprazole 40 Mg Sdv IVP 40 mg Q24H MIKO Administration Spironolactone 25 mg 05/15/21 09:00 05/15/21 07:56 Spironolactone 25 Mg Tablet PO 25 mg DAILY MIKO Administration PFSH Acute PFSH: Medical History COPD (chronic obstructive pulmonary disease) Diabetes mellitus Type 2 Hypertension Neuropathy, idiopathic Primary osteoarthritis of right knee Surgical History History of AAA (abdominal aortic aneurysm) repair Hx of cholecystectomy Hx of eye surgery right S/P right knee arthroscopy twice by Family History Denies family history of Diabetes CAD (coronary artery disease) Clotting disorder Dementia Hyperlipidemia Psychiatric illness Chronic kidney disease (CKD) Suicide Anesthesia complication Bleeding disorder Family history of premature coronary artery disease Lung disease Cancer Hypertension Stroke Social History Smoking and tobacco status: former smoker Quit status (tobacco): has quit using tobacco Year quit tobacco: 3 years ago;2017 Alcohol intake: never Dietary Habits: Current diet type/program: diabetic Safety: Seatbelt use: always Drive intoxicated or ride with intoxicated six horse hitch driver?: never Vitals/I&O/Wt Last Vital Signs Temp 98.6 F 05/15/21 08:00 Pulse 100 05/15/21 09:27 Resp 20 H 05/15/21 09:27 BP 143/79 05/15/21 08:00 Pulse Ox 94 05/15/21 09:27 05/14/21 05/15/21 05/15/21 22:59 06:59 14:59 Intake Total 500 / 500 360 / 360 Output Total 0 / 0 Balance 500 / 500 0 / 500 360 / 360 Weight last 48 hrs Weight 184 lb 9 oz Weight 187 lb Physical Exam Narrative: EXAM NARRATIVE: CONSTITUTIONAL: The patient is a normal appearing [] in no apparent distress. GENERAL: Patient in no acute distress. CARDIAC: Regular rate and rhythm. CHEST: Normal inspiratory effort, normal respiratory rate. ABDOMEN: Soft and nontender. SKIN: Clear, warm and intact. NEURO?PSYCH: The patient is alert and oriented to person, place and time. Sensorv /SILT Motor StrengthShoulder abduction C5 5/5Wrist extension C6 5/5Elbow extension C7 5/5Hand Technology Methodology Consultant C8 5/5Finger abduction T15/5 Radial/ Ulnar/ Median n intact LowerSensory (SILT)Motor StrengthHin flexion L2/3Ant/inner thigh 5/5Hip adduction L2/3 5/5Knee extension L4 Lat thigh, 5/5Toe dorsiflexion L5 5/5Ankle dorsiflexion L5/ O89Lwezlwy flexion S1 5/5 DTRBleeps 2+Triceps 2+Brachioradialis 2+Patellar 2+Achilles 2+ MUSCULOSKELETAL: [] UPPEREXTREMITIES: The patient had full active ROM in fingers, wrist, elbow, and shoulder. The patient demonstrated ability to fully flex/extend/abduct/adduct fingers, make ok sign, cross 2nd/3rd digits, extend 1st digit fully.. Radial pulse 2+, CR<2 seconds. LOWER EXTREMITIES: Pt has full, active ROM of toes, ankle, knee, and hip. Dorsalis pedis/posterior tibialis pulses 2+, CR<2 seconds. SPINE: Skin warm, dry, intact. A&P Assessment and plan (1) Spondylolisthesis at L4-L5 level: Urinary retention. Had been getting injections from Dr Fall now getting worse pain. Back pain = leg pain Plan to do an L4/5 PLIF. Status: Acute Consult Attestations Medical Necessity Statement: pain control Coding Level of Care Code Acute Alligator Trapper for [facility] Diagnoses Spondylolisthesis at L4-L5 level M43.16
[2021-05-15] MEDS: pantoprazole 40 mg SDV IVP (15:56)
[2021-05-16] VITALS (27 sets, daily range): BP systolic 104–159; BP diastolic 54–91; PULSE 65–107; RESP 11–22; TEMP 36.3–36.9; O2SAT 88–100
--- NOTE | 2021-05-16 | SCC_ITS ---
Procedure Done: 1. L4/5 Interbody fusion with posterolateral fusion 2. Instrumentation L4/5 3. Cage at L4/5 4. Laminectomy L4 5. use of autograft from same incision 6. allograft 7. Bone marrow aspirate from right iliac crest 8. Use of computer navigation/ stereotactic of spine 3 seconds of fluoroscopic guidance, for a cumulative dose of 33.8 mGy, was provided to Dr. Rivero by the radiology department. C-arm images of the lumbar spine were saved for the patient's permanent record. JOHNNY
--- NOTE | 2021-05-16 | XR_ITS ---
WS: [id number] INTRAOPERATIVE TECHNIQUE: 3 Spot fluoroscopic images for intraoperative purposes. FLUOROSCOPY TIME: 3 seconds CLINICAL INFORMATION: OMARI PICS COMPARISON: None. FINDINGS: Localization overlying the L4-5 vertebral bodies dorsally. Pedicle screw fixation L4-5 with interbody fusion graft. Prior aortic endograft. XR/XR lumbar spine 1V port [id number] IMPRESSION: Images obtained for intraoperative purposes.
[2021-05-16] MEDS: morphine 4 mg/mL SDV 1 mL IVP ×4 (04:30→22:46)
[2021-05-16 06:01] LABS: Basophils # 0.1 10^3/uL (0.0-0.1); Basophils % 0.7 %; Eosinophils # 0.1 10^3/uL (0.0-0.8); Eosinophils % 1.3 %; Hematocrit 40.5 % (42.0-52.0); Hemoglobin 12.9 g/dL (11.7-16.6); Lymphocytes # 1.9 10^3/uL (0.8-4.8); Lymphocytes % 23.7 %; Mean Corpuscular HGB Conc 31.9 g/dL (30.0-36.0); Mean Corpuscular Hemoglobin 27.2 pg (28.0-34.0); Mean Corpuscular Volume 85.3 fl (80-94); Mean Platelet Volume 10.6 fL (7.4-10.4); Monocytes # 0.8 10^3/uL (0.2-0.9); Monocytes % 9.5 %; Neutrophils # 5.27 10^3/uL (1.8-7.7); Neutrophils % 64.6 %; Nucleated Red Blood Cells % 0 %; Platelet Count 167 10^3/cmm (130-400); Red Blood Count 4.75 10^6/uL (4.1-5.3); Red Cell Distribution Width 16.5 % (12.1-15.1); White Blood Count 8.2 10^3/uL (4.0-10.0)
[2021-05-16 06:15] LABS: INR 1.08 (0.8-1.2)
[2021-05-16 06:32] LABS: Blood Urea Nitrogen 33 mg/dL (8-23); Calcium 9.5 mg/dL (8.5-10.5); Carbon Dioxide 21 mmol/L (22-29); Chloride 103 mmol/L (98-107); Glucose 132 mg/dL (65-115); Magnesium 1.5 mg/dL (1.7-2.3); Osmolality Calculated 291 mOsm/kg (285-295); Sodium 136 mmol/L (136-145)
[2021-05-16 06:41] LABS: Anion Gap 17.1 (5-19); Potassium 5.1 mmol/L (3.5-5.1)
[2021-05-16] MEDS: atorvastatin 40 mg Tablet 20 MG PO (07:36)
[2021-05-16] MEDS: gabapentin 300 mg Capsule PO ×3 (07:37→20:09)
[2021-05-16] MEDS: spironolactone 25 mg Tablet PO (07:37)
[2021-05-16] MEDS: metoprolol tartrate 25 mg Tablet PO ×2 (07:37→20:09)
[2021-05-16] MEDS: lisinopril 20 mg Tablet 30 MG PO (07:37)
[2021-05-16] MEDS: ferrous sulfate EC 325 mg Tablet PO (07:37)
[2021-05-16] MEDS: HYDROmorphone 1 mg/mL INJ 1 mL 0.4 MG IVP (08:11)
--- NOTE | 2021-05-16 11:42 | PM.PN ---
Subjective Subjective: Interval history: Patient was given 1.4 mg of Dilaudid he was complaining excruciating back pain, he also received morphine at 8:30 AM as well He is still requiring 2 L of oxygen as per the nursing staff he received morphine and was saturating 88 to 89% on ambulation when he was going towards the bathroom Magnesium 1.5 Received lisinopril this morning ?despite being n.p.o., Covid PCR is pending Vitals/I&O/Wt Last Vital Signs Temp 98.2 F 05/16/21 07:26 Pulse 102 H 05/16/21 09:05 Resp 18 05/16/21 09:05 BP 104/71 05/16/21 07:26 Pulse Ox 92 05/16/21 09:05 05/15/21 05/16/21 05/16/21 22:59 06:59 14:59 Intake Total 300 / 1020 Balance 300 / 1020 Weight last 48 hrs Weight 83.716 kg Physical Exam Narrative: EXAM NARRATIVE: Patient was complaining of back pain, no active neurological deficit S1, S2 Bilateral breath sounds with rhonchi Saturating well on 2 L nasal cannula Able to move his upper and lower extremities No signs of cauda equina Abdomen soft Patient awake alert oriented x3 EOMI, PERRLA GCS 15 Data : 05/16/21 05:43 05/16/21 05:43 A&P Assessment and plan (1) Spondylolisthesis at L4-L5 level: Status: Acute (2) Atrial fibrillation: Status: Acute Qualifiers: Atrial fibrillation type: paroxysmal Qualified Code(s): I48.0 - Paroxysmal atrial fibrillation (3) Hypertension: Status: Acute Qualifiers: Hypertension type: primary hypertension Qualified Code(s): I10 - Essential (primary) hypertension (4) Diabetes mellitus: Status: Acute (5) Left lumbar radiculopathy: Status: Acute (6) COPD (chronic obstructive pulmonary disease): Status: Acute Additional A&P Information Patient is scheduled for posterior laminectomy interbody fusion procedure by Dr. Rivero today Monitor closely for any signs of vasoplegic shock, Continue metoprolol to prevent perioperative A. fib RVR Acute hypoxia related to hypoventilation because of back pain and opioids, Covid PCR is pending, will require home O2 evaluation before discharge No active signs of pneumonia We will follow up on procalcitonin and LDH Start DVT prophylaxis as per orthopedic recommendations after the procedure Start diet after the procedure today Bowel regimen along opioids PT evaluation after the surgery Attestations Medical Necessity Statement*: Continue medical management Time Spent in Patient Care: less than 15 minutes Coding Level of Care Code Acute Core Oven Tender for [facility] Fwd Diagnoses Spondylolisthesis at L4-L5 level M43.16 Atrial fibrillation I48.0 Atrial fibrillation type: paroxysmal Hypertension I10 Hypertension type: primary hypertension Diabetes mellitus E11.9 Left lumbar radiculopathy M54.16 COPD (chronic obstructive pulmonary disease) J44.9
[2021-05-16 12:03] LABS: Glucose Point of Care 143 mg/dL (70-110)
[2021-05-16] MEDS: sodium chloride 0.9% 1,000 ML 30 ML IV (12:10)
--- NOTE | 2021-05-16 12:35 | W.PM.OPSUD ---
Surgery/Procedure H&P Update DATE OF PROCEDURE: May 16, 2021 DATE H&P PERFORMED: 05/15/21 H&P UPDATE INFORMATION: I have reviewed H&P completed within last 30 days, I have examined patient prior to procedure and No changes to prior documentation PLANNED PROCEDURE: Operation Date: 05/16/21 13:00 Proposed Procedures p Posterior Lumbar Interbody Fusion L4/5(Not Applicable) - Eduardo Rivero DO
--- NOTE | 2021-05-16 13:07 | ANES.PREANE2 ---
Pre-Anesthetic Assessment Pre-Anesthetic Assessment: Height/Weight: Height 1.7 m Weight 83.716 kg Temp Pulse Resp BP Pulse Ox 97.3 F L 107 H 18 117/72 93 05/16/21 12:05 05/16/21 12:05 05/16/21 12:05 05/16/21 12:05 05/16/21 12:05 Proposed Procedure: Operation Date: 05/16/21 13:00 Proposed Procedures p Posterior Lumbar Interbody Fusion L4/5(Not Applicable) - Eduardo Rivero, DO Was Beta Aravind taken within 24 hours: N/A Was Clonidine taken within 24 hours: N/A Social: Social History: Tobacco and No alcohol Exam: Pre-Anes Outpt Exam: alert, oriented x 3 and regular rate & rhythm Airway: Submandibular: WNL Cervical ROM: WNL MP: 2 Pulmonary: Pulmonary: COPD CV/HEM: CV/HEM: Afib, CAD, HTN and PVD Metabolic: Metabolic: DM and Hyperlipidemia Musc/skel: Musc/skel: Lower Back Pain and OA/DJD Anesthetic Plan: ASA status: 3 Anesthesia: General Other: A.line Risk of > 500 ml blood loss (7ml/kg in children): No Meds/Allergies Current Medications: Current Medications Generic Name Dose Route Start Last Admin Trade Name Freq PRN Reason Stop Dose Admin Atorvastatin Calci um 20 mg 05/15/21 09:00 05/16/21 07:36 Atorvastatin 40 Mg Tablet PO 20 mg DAILY MIKO Administration Bimatoprost 1 drop 05/15/21 18:00 05/15/21 18:05 Bimatoprost 0.01 % Op Soln 2.5 Ml B tl EYE-BOTH 1 drop QPM MIKO Administration Ferrous Sulfate 325 mg 05/15/21 09:00 05/16/21 07:37 Ferrous Sulfate Ec 325 Mg Tablet PO 325 mg DAILY MIKO Administration Gabapentin 300 mg 05/14/21 17:00 05/16/21 07:37 Gabapentin 300 M g Capsule PO 300 mg QID MIKO Administration Sodium Chloride 1,000 mls @ 30 ml s/hr 05/16/21 11:45 05/16/21 12:10 Sodium Chloride 0.9% IV 05/17/21 11:44 30 mls/hr .Q24H MIKO Administration Lisinopril 30 mg 05/15/21 09:00 05/16/21 07:37 Lisinopril 20 Mg Tablet PO 30 mg DAILY MIKO Administration Metoprolol Tartrat e 25 mg 05/14/21 21:00 05/16/21 07:37 Metoprolol Tartr ate 25 Mg Tablet PO 25 mg BID@0900,2100 MIKO Administration Morphine Sulfate 4 mg 05/14/21 16:14 05/16/21 08:47 Morphine 4 Mg/Ml Sdv 1 Ml IVP 4 mg Q4H PRN Administration SEVERE PAIN Pantoprazole Sodiu m 40 mg 05/14/21 16:30 05/15/21 15:56 Pantoprazole 40 Mg Sdv IVP 40 mg Q24H MIKO Administration Spironolactone 25 mg 05/15/21 09:00 05/16/21 07:37 Spironolactone 2 5 Mg Tablet PO 25 mg DAILY MIKO Administration PFSH Anesthesia PFSH: Medical History COPD (chronic obstructive pulmonary disease) Diabetes mellitus Type 2 Hypertension Neuropathy, idiopathic Primary osteoarthritis of right knee Surgical History History of AAA (abdominal aortic aneurysm) repair Hx of cholecystectomy Hx of eye surgery right S/P right knee arthroscopy twice by Family History Denies family history of Diabetes CAD (coronary artery disease) Clotting disorder Dementia Hyperlipidemia Psychiatric illness Chronic kidney disease (CKD) Suicide Anesthesia complication Bleeding disorder Family history of premature coronary artery disease Lung disease Cancer Hypertension Stroke Social History Smoking and tobacco status: former smoker Quit status (tobacco): has quit using tobacco Year quit tobacco: 3 years ago;2017 Alcohol intake: never Data Anesthesia CBC & Chem 7: 05/16/21 05:43 05/16/21 05:43 Other Labs: Laboratory Results - last 48 hr 05/14/21 05/15/21 05/15/21 13:13 06:36 06:36 WBC 9.9 RBC 4.56 Hgb 12.5 Hct 39.0 L MCV 85.5 MCH 27.4 L MCHC 32.1 RDW 16.9 H Plt Count 169 MPV 10.7 H Neut % (Auto) 70.3 Lymph % (Auto) 20.7 [place] % (Auto) 8.2 Eos % (Auto) 0.2 Baso % (Auto) 0.3 Neut # (Auto) 6.95 Lymph # (Auto) 2.1 [place] # (Auto) 0.8 Eos # (Auto) 0.0 Baso # (Auto) 0.0 Nucleated RBC % (auto) 0 Nucleated RBCs # 0.0 PT 14.70 INR 1.11 Sodium Potassium Chloride Carbon Dioxide Anion Gap BUN Creatinine GFR Calculation Glucose POC Glucose 126 H Calculated Osmolality Calcium Magnesium NT-Pro-B Natriuret Pep 05/15/21 05/15/21 05/16/21 06:36 06:36 05:43 WBC 8.2 RBC 4.75 Hgb 12.9 Hct 40.5 L MCV 85.3 MCH 27.2 L MCHC 31.9 RDW 16.5 H Plt Count 167 MPV 10.6 H Neut % (Auto) 64.6 Lymph % (Auto) 23.7 [place] % (Auto) 9.5 Eos % (Auto) 1.3 Baso % (Auto) 0.7 Neut # (Auto) 5.27 Lymph # (Auto) 1.9 [place] # (Auto) 0.8 Eos # (Auto) 0.1 Baso # (Auto) 0.1 Nucleated RBC % (auto) 0 Nucleated RBCs # 0.0 PT INR Sodium 140 Potassium 5.1 Chloride 105 Carbon Dioxide 23 Anion Gap 17.1 BUN 38 H Creatinine 1.2 GFR Calculation Not Reportable Glucose 114 POC Glucose Calculated Osmolality 300 H Calcium 9.6 Magnesium 1.8 NT-Pro-B Natriuret Pep 299 05/16/21 05/16/21 05/16/21 05:43 05:43 11:51 WBC RBC Hgb Hct MCV MCH MCHC RDW Plt Count MPV Neut % (Auto) Lymph % (Auto) [place] % (Auto) Eos % (Auto) Baso % (Auto) Neut # (Auto) Lymph # (Auto) [place] # (Auto) Eos # (Auto) Baso # (Auto) Nucleated RBC % (auto) Nucleated RBCs # PT 14.30 INR 1.08 Sodium 136 Potassium 5.1 Chloride 103 Carbon Dioxide 21 L Anion Gap 17.1 BUN 33 H Creatinine 1.1 GFR Calculation Not Reportable Glucose 132 H POC Glucose 143 H Calculated Osmolality 291 Calcium 9.5 Magnesium 1.5 L NT-Pro-B Natriuret Pep Cardiac Studies: Echocardiogram 03/11/21
[2021-05-16] MEDS: morphine 4 mg/mL SDV 1 mL 2 MG IVP (13:09)
[2021-05-16] MEDS: heparin, porcine 1,000 unit/mL INJ 10 mL 10000 UNIT XX (14:27)
[2021-05-16] MEDS: vancomycin 1,000 MG SDV 1000 MG XX (14:29)
--- NOTE | 2021-05-16 15:53 | PM.OP ---
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 L4/5 Interbody fusion with posterolateral fusion 2. Instrumentation L4/5 3. Cage at L4/5 4. Laminectomy L4 5. use of autograft from same incision 6. allograft 7. Bone marrow aspirate from right iliac crest 8. Use of computer navigation/ stereotactic of spine Surgeon: Eduardo Rivero Director Of Graduate Admissions: Santiago Brewer Director Of Graduate Admissions: The surgical supplies sterilizer, Santiago Brewer, PAC was needed for his expertise under the microscope. He was important and necessary throughout the procedure to complete in a safe and timely manner. He assisted with patient positioning prepping and draping tissue retraction suctioning of the operative field protection of the dural sac and tissue closure Anesthesia: General Estimated blood loss (mL): 100 Condition: stable Disposition: PACU Procedure: 1. L4/5 Interbody fusion with posterolateral fusion 2. Instrumentation L4/5 3. Cage at L4/5 4. Laminectomy L4 5. use of autograft from same incision 6. allograft 7. Bone marrow aspirate from right iliac crest 8. Use of computer navigation/ stereotactic of spine Patient is brought to the operative suite. After undergoing anesthesia, the patient had neuro monitoring attached. Patient was then placed in the prone position on the David table. All areas of impingement were well-padded. Patient was then prepped and draped in the normal sterile fashion. Skin incision was then made over the L4/5 space. Subperiosteal dissection was made out to the transverse processes of L4 and L5. Once the exposure was complete attention was then brought to Aspirating the Bone marrow aspirate from the right iliac crest. The [employer] bone marrow aspirate kit was used to aspirate bone marrow aspirate right iliac crest. This was done by using the sharp probe to open up the bone. Aspiration was performed and then the blunt probe was then used to dissect down to through the bone tunnel. An aspirating well drawn back a millimeter approximately 20 cc of bone marrow aspirate was used. And mixed with the allograft and autograft bone that will be used. Next attention was brought to placing the fiducial for the computer navigation. 2 pins were placed into the right iliac crest. And then the fiducial was attached to this. And linked to the computer. Then the C-arm was brought in the information from the C arm was then placed into the computer. And then links to the probes attached to the screw and gearshift. The technique for placing the pedicle screws was to use a drill followed by the gearshift probe attached to computer navigation. Followed by the ball probe to feel the superior inferior medial lateral rapp of the pedicles. Then placement of the screws using computer navigation. Was done at each pedicle. Screws were placed at L4 bilaterally and L5. Next attention was brought to performing the laminectomy ofL4. This was done using the high-speed bur Kerrisons and curettes. Once the lamina was removed and then attention was brought to performing a partial facetectomy on the contralateral side. This was done again using the high-speed bur curettes and Kerrisons. The ligamentum flavum was taken down bilaterally from L4 to L5. Attention was then brought to the facet on the ipsilateral side. The facet was taken down. The L5 nerve was decompressed as it passed around the L5 pedicle. The laminectomy was done for purposes of decompressing the nerve as well as placement of the cage. The L4 nerve was identified as it traversed through the L4/5 foramen. The thecal sac was identified and retracted. The L4/5 disc base was identified. Using a knife the disc base was opened. And then sequential [place] were placed. The first shaver was a 6 and the last shaver was a 10. Using a pituitary and down going curette the endplates were scraped and disc material was removed from the space. Once adequate decompression of the disc base was felt to be had. Osteoamp sponge was packed into the anterior aspect of the disc base. Then a size 10 cage from [employer] was placed after packing osteoamp into the cage. While placing the cage the thecal sac and L5 nerve was protected. C arm was used to ensure that the cages placed in the appropriate position. Attention was then brought to attaching the rods to the screws placed in the L4 and L5 bilaterally. Caps were torqued into position. Locking the construct in place. Wound was copiously irrigated and then attention was brought to decorticating the facets and transverse processes laterally. Bone that was taken down from the lamina was used along with osteoamp fibers and sponges were packed into the lateral gutters along the facet joints. This was done bilaterally. Wound was then closed in a layered fashion starting with the thoracolumbar fascia. 0-vicryl was used the sub cutaneous tissue was closed with 2-0 vicryl and skin with 4-0 monocryl. Glue was then used to seal the skin and a steril dressing was applied. Patient was then placed in the supine position. The endotracheal tube was removed and patient was transferred to the PACU in stable condition.
--- NOTE | 2021-05-16 15:54 | P.PCN_ITS ---
PACU note PACU note: VSS, Good respiratory effort, report to FIRE BOSS Post-Anesthesia Exam: awake
--- NOTE | 2021-05-16 15:54 | PM.PACU ---
PACU note PACU note: VSS, Good respiratory effort, report to THERMOGRAPH OPERATOR Post-Anesthesia Exam: awake
[2021-05-16 16:22] LABS: Quest SARS-CoV-2 RNA NOT DETECTED (NOT DETECTED)
--- NOTE | 2021-05-16 17:11 | PC.RESP ---
Pulmonary Rehab information sent to patient.
[2021-05-16] MEDS: lactated ringers 1,000 ML 999 ML IV ×2 (17:42→19:18)
[2021-05-16 17:43] LABS: Glucose Point of Care 198 mg/dL (70-110)
[2021-05-16] MEDS: sennosides-docusate Tablet 2 TAB PO (17:50)
[2021-05-16] MEDS: docusate sodium 100 mg Capsule PO (17:51)
--- NOTE | 2021-05-16 18:48 | P.MISC_ITS ---
Miscellaneous Note Purpose of Documentation: Postop follow-up Patient was experiencing confusion which improved spontaneously, blood sugar 198 Blood pressure 109/64 mmHg, gave 2 L lactated Ringer bolus, 100mg milligrams IV push of Solu-Cortef At the time my evaluation patient was awake alert oriented x3 GCS 15 no neurol ogical deficits Monitor overnight, added moderate dose sliding scale Patient was endorsing feeling thirsty, NIH 0, no need of ABG at this time
[2021-05-16] MEDS: lactated ringers 1,000 ML 90 ML IV (19:19)
[2021-05-16] MEDS: magnesium sulfate premix 2 GM/50 ML PIGGYBACK IV (19:22)
[2021-05-16] MEDS: hydrocortisone 100 mg/2 mL SDV IVP (19:39)
[2021-05-16 20:11] LABS: Glucose Point of Care 163 mg/dL (70-110)
[2021-05-16] MEDS: insulin lispro 100 unit/1 mL SUBCUT (20:28)
[2021-05-16] MEDS: HYDROcodone-acetaminophen 5-325 mg Tablet PO (20:45)
[2021-05-17] VITALS (9 sets, daily range): BP systolic 106–125; BP diastolic 64–70; PULSE 71–118; RESP 16–18; TEMP 36.4–36.8; O2SAT 90–96
[2021-05-17] MEDS: ketorolac 30 mg/mL INJ IVP (02:50)
[2021-05-17 03:01] LABS: Basophils % 0.1 %; Hematocrit 35.2 % (42.0-52.0); Hemoglobin 11.1 g/dL (11.7-16.6); Lymphocytes # 0.7 10^3/uL (0.8-4.8); Lymphocytes % 4.7 %; Mean Corpuscular HGB Conc 31.5 g/dL (30.0-36.0); Mean Corpuscular Hemoglobin 27.1 pg (28.0-34.0); Mean Corpuscular Volume 85.9 fl (80-94); Monocytes # 0.8 10^3/uL (0.2-0.9); Monocytes % 5.4 %; Neutrophils # 12.78 10^3/uL (1.8-7.7); Neutrophils % 89.5 %; Nucleated Red Blood Cells % 0 %; Platelet Count 171 10^3/cmm (130-400); White Blood Count 14.3 10^3/uL (4.0-10.0)
[2021-05-17 03:21] LABS: INR 1.14 (0.8-1.2)
[2021-05-17 03:29] LABS: Blood Urea Nitrogen 27 mg/dL (8-23); Calcium 8.7 mg/dL (8.5-10.5); Carbon Dioxide 21 mmol/L (22-29); Chloride 107 mmol/L (98-107); Glucose 175 mg/dL (65-115); Magnesium 1.9 mg/dL (1.7-2.3); Osmolality Calculated 293 mOsm/kg (285-295); Sodium 137 mmol/L (136-145)
[2021-05-17] MEDS: dextrose 50% syringe 50 mL 25 ML IVP (05:03)
[2021-05-17] MEDS: insulin regular-human 10 UNIT in SYRINGE 1 EACH 5 UNIT IVP (05:04)
[2021-05-17] MEDS: enoxaparin 40 mg/0.4 mL Syringe SUBCUT (05:09)
[2021-05-17] MEDS: HYDROcodone-acetaminophen 5-325 mg Tablet PO ×3 (05:38→18:35)
--- NOTE | 2021-05-17 07:00 | P.PN_ITS ---
Documented by User: ARI Enriquez 05/17/21 07:04 Subjective Subjective: Interval history: POD 1 Patient up in bed with mild Back discomfort, Leg pain much improved. Denies ROSE/SOB or CP. Vitals/I&O/Wt Last Vital Signs Temp 98.3 F 05/17/21 03:23 Pulse 98 05/17/21 05:48 Resp 16 05/17/21 05:42 BP 119/69 05/17/21 03:23 Pulse Ox 96 05/17/21 05:42 05/16/21 05/17/21 05/17/21 22:59 06:59 14:59 Intake Total 2410 / 3470 1339.1 / 4809.1 Output Total 630 / 630 495 / 1125 Balance 1780 / 2840 844.1 / 3684.1 Physical Exam Narrative: EXAM NARRATIVE: Incision c/d fires in all motor grops with 5/5 strength, wiggles all digits, normal sensation to light touch Urinary Catheter Management^: Weiner: Cath Placed During This Visit: yes, but has since been removed by the nurse Urinary Catheter Date of Insertion: 05/16/21 Urinary Catheter Time of Insertion: 13:40 Date Urinary Catheter Removed: 05/16/21 Time Urinary Catheter Discontinued: 15:33 Data : 05/17/21 02:44 05/17/21 02:44 A&P Assessment and plan (1) Status post lumbar spinal fusion: Status: Acute Attestations Medical Necessity Statement*: defer to medical team Coding Level of Care Code Acute Field Auto Appraiser for Chg Fwd Diagnoses Status post lumbar spinal fusion Z98.1 Documented by User: Eduardo Rivero DO 05/17/21 07:12 Physical Exam Urinary Catheter Management^: Weiner: Cath Placed During This Visit: no Data : 05/17/21 02:44 05/17/21 02:44 A&P Assessment and plan (1) Status post lumbar spinal fusion: OK to D/C from Spine standpoint if OK with primary service. Status: Acute Coding Level of Care Code Acute Field Auto Appraiser for Chg Fwd Diagnoses Status post lumbar spinal fusion Z98.1
[2021-05-17 07:07] LABS: Glucose Point of Care 136 mg/dL (70-110)
[2021-05-17] MEDS: ferrous sulfate EC 325 mg Tablet PO (09:18)
[2021-05-17] MEDS: sennosides-docusate Tablet 2 TAB PO ×2 (09:18→17:38)
[2021-05-17] MEDS: gabapentin 300 mg Capsule PO ×3 (09:18→17:38)
[2021-05-17] MEDS: docusate sodium 100 mg Capsule PO ×2 (09:18→17:38)
[2021-05-17] MEDS: metoprolol tartrate 25 mg Tablet PO (09:18)
[2021-05-17] MEDS: atorvastatin 40 mg Tablet 20 MG PO (09:18)
--- NOTE | 2021-05-17 10:29 | PC.SOCIAL ---
IMM update IMM updated with patient. Verbalized an understanding. Copy Pg 2 provided. Initialled, dated, timed, and placed in chart.
--- NOTE | 2021-05-17 11:30 | PM.DCS ---
Discharge Providers Date of Admission: 05/14/21 15:03 Date of Discharge: May 17, 2021 Attending Provider at Admission: Sumaya Mustafa MD Attending Provider at Discharge: Dayna Hunter MD Primary Care Provider: Mil Veronica MD Diagnoses at Discharge Discharge Diagnosis (1) Status post lumbar spinal fusion: Status: Acute Permanent problem details: Encouraged him to continue walking program to be cautious with bending lifting or twisting. We will see him back in the office in 1 week's time. Continue refraining from any bending lifting or twisting. We will discontinue the Hemovac drain. Reason for Visit Reason for Visit: leg pain Hospital Course Hospital Course History of Present Illness by Dr. Mustafa Brandon Gracia is a 80 year old male with past medical history of COPD, diabetes mellitus type 2, hypertension, neuropathy, osteoarthritis of right knee, atrial fibrillation with RVR, rib fractures secondary to a fall in February, abdominal aortic aneurysm status post repair, who presented to the hospital with complaint of back pain radiating down to his left leg. He also complained of some difficulty urinating. He actually presented to the ER yesterday with severe back pain. He was supposed to be seen for evaluation this week at some point but he presented back to the ER due to pain. Another reason to come back was that he stated he will continue coming to the ER until he sees a surgeon of scheduled appointment. For patient's atrial fibrillation he takes metoprolol tartrate at home along with Eliquis. ED course: On arrival blood pressure 152/95, respiratory rate 20, pulse rate 116, temperature 98.5, saturating 91% on room air. Orthopedic surgery was called and plan is to most likely operate on Sunday. Imaging was done in the ER which showed the following: MRI lumbar spine shows chronic L1 burst fracture unchanged from prior CT scan. Multilevel multifactorial degenerative changes as described above. Posterior osteophytes and severe facet arthropathy contribute to severe bilateral neural foraminal narrowing at L5-S1 level with possible compression of exiting L5 nerve roots CTA ruled out pulmonary embolism Chart review: Last echo February 2021: Mild diffuse hypokinesia of the septum and LV apex. Left ventricular ejection fraction 49%. Minimally thickened mitral valve with trace mitral regurg. Thickened aortic valve. 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 Gracia was admitted for management of left lumbar radiculopathy, after cardiac clearance he went for PLIF by Dr. Rivero on 05/16, postoperatively no complications identified, he experienced a brief episode of confusion which was secondary to anesthesia effect, I did evaluate the patient after his surgery, at the time of my evaluation NIH 0 he was awake alert oriented x3 GCS 15, without any focal deficit. He was weaned off oxygen, at the time of discharge he did not qualify for oxygen, Covid PCR negative. Patient will resume his Eliquis, he was given bowel regimen along opioids. Physical therapy evaluated him after surgery and deemed him stable to go home with home exercise program. Patient to see Dr. Rivero within a week in his clinic. He was given detailed instructions by orthopedic service. Physical Exam Narrative: EXAM NARRATIVE: Patient was complaining of back pain, no active neurological deficit He was working with physical therapist Nishant S1, S2 Bilateral breath sounds with rhonchi Saturating well on RA Able to use a walker independently No signs of cauda equina Abdomen soft Patient awake alert oriented x3 EOMI, PERRLA GCS 15 Urinary Catheter Management^: Weiner: Cath Placed During This Visit: yes, but has since been removed by the nurse Urinary Catheter Date of Insertion: 05/16/21 Urinary Catheter Time of Insertion: 13:40 Date Urinary Catheter Removed: 05/16/21 Time Urinary Catheter Discontinued: 15:33 Discharge Data Data Completed and Pending: Completed Studies During Hospitalization Category Date Time Status MR lumbar spine w o con* [id number] Stat MRI 05/14/21 11:30 Completed Pending at discharge Category Date Time Status XR lumbar spine 1 V port [id number] Routi ne Exams 05/16/21 Taken Labs from last 24 hours 05/17/21 05/17/21 05/17/21 07:20 06:40 02:44 WBC RBC Hgb Hct MCV MCH MCHC RDW Plt Count MPV Neut % (Auto) Lymph % (Auto) [place] % (Auto) Eos % (Auto) Baso % (Auto) Neut # (Auto) Lymph # (Auto) [place] # (Auto) Eos # (Auto) Baso # (Auto) Nucleated RBC % (a uto) Nucleated RBCs # PT INR Sodium 137 Potassium 5.0 6.0 H Chloride 107 Carbon Dioxide 21 L Anion Gap 15.0 BUN 27 H Creatinine 1.1 GFR Calculation Not Reportable Glucose 175 H POC Glucose 136 H Calculated Osmolal ity 293 Calcium 8.7 Magnesium 1.9 SARS-CoV-2 RNA (RT -PCR) 05/17/21 05/17/21 05/16/21 02:44 02:44 19:16 WBC 14.3 H RBC 4.10 Hgb 11.1 L Hct 35.2 L MCV 85.9 MCH 27.1 L MCHC 31.5 RDW 16.0 H Plt Count 171 MPV 11.0 H Neut % (Auto) 89.5 Lymph % (Auto) 4.7 [place] % (Auto) 5.4 Eos % (Auto) 0.0 Baso % (Auto) 0.1 Neut # (Auto) 12.78 H Lymph # (Auto) 0.7 L [place] # (Auto) 0.8 Eos # (Auto) 0.0 Baso # (Auto) 0.0 Nucleated RBC % (a uto) 0 Nucleated RBCs # 0.0 PT 15.00 H INR 1.14 Sodium Potassium Chloride Carbon Dioxide Anion Gap BUN Creatinine GFR Calculation Glucose POC Glucose 163 H Calculated Osmolal ity Calcium Magnesium SARS-CoV-2 RNA (RT -PCR) 05/16/21 05/16/21 05/14/21 17:38 11:51 18:15 WBC RBC Hgb Hct MCV MCH MCHC RDW Plt Count MPV Neut % (Auto) Lymph % (Auto) [place] % (Auto) Eos % (Auto) Baso % (Auto) Neut # (Auto) Lymph # (Auto) [place] # (Auto) Eos # (Auto) Baso # (Auto) Nucleated RBC % (a uto) Nucleated RBCs # PT INR Sodium Potassium Chloride Carbon Dioxide Anion Gap BUN Creatinine GFR Calculation Glucose POC Glucose 198 H 143 H Calculated Osmolal ity Calcium Magnesium SARS-CoV-2 RNA (RT -PCR) Not detected Vitals: Last Vital Signs Temp 97.9 F 05/17/21 08:00 Pulse 118 H 05/17/21 09:23 Resp 17 05/17/21 09:23 BP 114/64 05/17/21 08:00 Pulse Ox 92 05/17/21 09:23 Discharge Plan Discharge Patient Disposition: Home Condition: Stable Prescriptions: New hydrocodone-acetaminophen 5-325 mg tablet 1 - 2 tab PO .Q4-6H Qty: 40 RF: 0 Senna Plus 8.6-50 mg capsule 1 tab-cap PO DAILY Qty: 30 RF: 0 Continued Anoro Ellipta 62.5-25 mcg/actuation blister with device 1 inh INHALATION Q24H RF: 0 metformin 500 mg tablet 500 mg PO BID RF: 0 Lumigan 0.01 % drops 1 drop ophthalmic (eye) DAILY RF: 0 ascorbic acid (vitamin C) [Vitamin C] 1,000 mg Tablet 1,000 mg PO DAILY RF: 0 acetaminophen [Tylenol] 325 mg Tablet 325 mg PO QID PRN (Reason: Pain) RF: 0 pravastatin 40 mg tablet 40 mg PO DAILY RF: 0 ferrous sulfate [Iron (ferrous sulfate)] 325 mg (65 mg iron) Tablet 325 mg PO DAILY RF: 0 cholecalciferol (vitamin D3) [Vitamin D3] 25 mcg (1,000 unit) Capsule 25 mcg PO DAILY RF: 0 Multivitamin 50 Plus Tablet 1 tab PO DAILY RF: 0 PreserVision AREDS 7,160 unit- 113 mg-100 unit Tablet 2 tab PO BID RF: 0 gabapentin 300 mg capsule 300 mg PO QID RF: 0 Eliquis 5 mg Tablet 5 mg PO BID@0900,2100 Qty: 60 RF: 0 metoprolol tartrate 25 mg tablet 25 mg PO BID Qty: 60 RF: 0 hydrocodone-acetaminophen 5-325 mg Tablet 1 tab PO Q8H PRN (Reason: Pain) RF: 0 minocycline 100 mg capsule 100 mg PO DAILY RF: 0 spironolactone 25 mg Tablet 25 mg PO DAILY RF: 0 oxycodone-acetaminophen 5-325 mg Tablet 1 tab PO Q8H PRN (Reason: Pain) RF: 0 lisinopril 30 mg Tablet 30 mg PO DAILY RF: 0 prednisone 20 mg tablet 20 mg PO DAILY Qty: 15 RF: 0 tizanidine 4 mg capsule 4 mg PO Q6H PRN (Reason: muscle spasticity) Qty: 20 RF: 0 Discharge Orders: Discharge Order (Routine); Ordered 05/17/21 Ordered By: Dayna Hunter Referrals: Eduardo Rivero DO [Physician] - 7-10 days Discharge Diet: Advance as tolerated Discharge Activity: Limit activity as instructed Patient Instructions: Hydrocodone/Acetaminophen (By mouth), Lumbar Spinal Fusion (GEN), Opioid Safety Activity Restrictions/Additional Instructions: Thank you for [facility] for your care! The following is a list of instructions, from your provider, to follow upon your discharge to ensure you have the optimal recovery from your recent injury orsurgery. Follow-up care is a newsome part of your treatment and safety. Be sure to make and go to all appointments, and call your doctor if you are having problems. If you do not already have a follow-up appointment made, call Dr. Rivero office in the next 1-3 days to make follow up appointment for 1 weeks at [phone]. It is also a good idea to know your test results and keep a list of the medicines you take. Medications will be prescribed for you at your provider's discretion. These medications are to be used as instructed; if they are taken more often that prescribed they will not be refilled early and in most cases will not be refilled at all. > When a refill is needed,you should contact jaspreet [email or web address] 2-3 business days before your prescription runs out. Medications will NOT be refilled by hotel operation manager providers after hours! > Many pain medications contain Tylenol (Acetaminophen). Do not consume more than 4,000 mg of Tylenol per day in total with any combination ofmedications. > Pain medications can cause constipation. Please use an over the counter stool softener as directed, while taking pain medications. Consulty our local pharmacist with questions or recommendations on stool softeners. If constipation persists, contact our office or your primary care provider. > While under our care,you are not to receive pain medications or other controlled substances from any other provider unless our office is notified and approves. Any attempts to do so will result in refusal to prescribe any further pain medications and possible dismissal from our practice. ? Keep dressing on at all times. until seen in clinic ? Showering is permitted, however we ask that you do not take a bath, sit in a whirlpool / Jacuzzi, or go swimming for 1 month. For only the first 2 days after surgery, lt wilt be necessary for you to cover your wound/dressing with plastic and tape to keep it dry. ? Walking is essential for the healing process after surgery. We would like you to slowly advance your walking. This should be done on relatively flat clear ground (inside or out) or can be done on a treadmill. Remember this goal does not have to happen all at once, slowly increase your distance and duration. This can be broken into more more than one walk per day as tolerated. Patients who walk as directed after surgery rarely require Physical Therapy. In the unlikely event this issue arises your provider will direct hospital staff to make the appropriate arrangements. ? No lifting over 5 pounds {a gallon of milk) or bending/twisting until further notice. Each of these activities places an unnecessary amount of stress onto the body and can impede the delicate healing process. > Instead of bending at the waist, keep your back straight and bend at the knees. > Instead of twisting your torso, keep your back straight and turn your entire body with your feet. ? You may sleep in any position which makes you comfortable. Many patients find comfort sleeping in a reclining chair. It is not abnormal to have difficulty sleeping for the first several weeks following your surgery. We recommend trying Benadry! or Tylenol PM as directed to help with your sleeping difficulties. Both medications are over the counter and available withoutprescription. ? NO SMOKING!!! Smoking dramatically increases the probability of developing postoperative wound infections. ? Common complaints after lumbar and/or thoracic spine surgery include, but are not limited to: numbness and/or tingling in the legs, pain around the incision and surrounding tissues, muscle spasms, or stiffness of the middle to low back. Contact our office if these symptoms persist or if an acute change occurs. ? No driving for the first 3-5days, and not while taking narcotics [] until seen at your follow-up appointment and cleared. There are no restrictions for riding on short trips, however if you take a longer trip, arrangements should be made to make regular stops to get out of the vehicle and stretch . ? Swelling is an unfortunate event that will take place with any surgery and is the primary source of your postoperative discomfort. While walking and regular approved activities helps control inflammation, there are additional steps you can take to minimizeswelling. > Place ice over the surgical site and surrounding tissue for twenty minutes, followed by applying a low/medium heat (heating pad) for an additional twenty minutes every 1-2 hours as needed for painrelief. > You may use of over the counter anti-inflammatory medications (Ibuprofen, Motrin, Aleve, Advil, etc) as directed on the package label. These types of medicines wm significantly reduce the amount of discomfort you experience after surgery from swelling. It should be noted that if you have and allergy to any of these medications, or a history of ulcers or kidney disease you should consult you primary care provider prior to starting these medications. Discharge Attestations Time Spent in Discharge Care*: less than 30 min Status at Discharge: Cognitive status at discharge: cognitively intact, Behavioral status at discharge: cooperative, Quality Metrics Clinical Quality Measures During this hospital stay, did patient experience: None Coding Level of Care Code Acute Chg FW DC note Diagnoses Status post lumbar spinal fusion Z98.1
[2021-05-17 11:48] LABS: Glucose Point of Care 173 mg/dL (70-110)
[2021-05-17] MEDS: insulin lispro 100 unit/1 mL SUBCUT ×2 (12:18→17:38)
[2021-05-17 17:25] LABS: Glucose Point of Care 165 mg/dL (70-110)
[2021-05-17] MEDS: pantoprazole 40 mg SDV IVP (17:36)
--- NOTE | 2021-05-17 18:59 | PC.NURSE ---
Discharge Note Patient discharged to private home via private vehicle accompanied by family member. Discharge instructions reviewed with patient and/or correspondence representative. Mobile pharmacy medications and/or prescriptions provided to [facility]. Belongings/home medications returned.
== END 2021-05-17 19:01 | disposition home or self-care (01) | DRG 460 ==
LOC: ER 11:10 → MEDSURG 15:23
PROVIDERS: Orthopaedic Surgery; Student in an Organized Health Care Education/Training Program; Admitting Provider Internal Medicine; Emergency Provider Family Medicine; PCP Family Medicine; Visit Provider Internal Medicine
PROC: 0SG00AJ Fusion of Lumbar Vertebral Joint with Interbody Fusion Device, Posterior Approach, Anterior Column, Open Approach (ICD-10-PCS; CPT 22612; principal; 2021-05-16 12:30)
DX: M43.16 Spondylolisthesis, lumbar region (principal); M54.16 Radiculopathy, lumbar region; J44.9 Chronic obstructive pulmonary disease, unspecified; E11.42 Type 2 diabetes mellitus with diabetic polyneuropathy; I10 Essential (primary) hypertension; M17.11 Unilateral primary osteoarthritis, right knee; Z87.891 Personal history of nicotine dependence; I48.0 Paroxysmal atrial fibrillation; I25.2 Old myocardial infarction; I34.0 Nonrheumatic mitral (valve) insufficiency; E78.5 Hyperlipidemia, unspecified; Z79.891 Long term (current) use of opiate analgesic; Z79.01 Long term (current) use of anticoagulants; Z79.84 Long term (current) use of oral hypoglycemic drugs
CPT/HCPCS: 36415; 36416; 36600; 51798; 71045; 71275; 72020; 72131; 72148; 73502; 76000; 80048; 80051; 80053; 82330; 82550; 82805; 82962; 83605; 83735; 83880; 84132; 84484; 85025; 85610; 87635; 93005; 94640; 94664; 96365; 96372; 96374; 96375; 96376; 97161; 97530; 99284; 99285; C1713; C9113; J0690; J1100; J1170; J1644; J1650; J1720; J1815; J1885; J2270; J2405; J2704; J2710; J3010; J3370; J3475; J3490; J7030; J7611; Q9967

== ENCOUNTER 2021-06-10 04:40 | Emergency (ER) | payer MEDICARE, OTHER, SELFPAY ==
--- NOTE | 2021-06-10 04:49 | ED_ITS ---
Documented by User: Artis Bejarano MD 06/10/21 04:51 HPI - Back Pain/Injury General: Chief Complaint: Back Pain/Injury Stated Complaint: POST OP BACK PAIN Time Seen by Provider: 06/10/21 04:46 Source: patient and EMS Mode of arrival: EMS Limitations: no limitations History of Present Illness: HPI Narrative: 80-year-old male who is 3 weeks postop from an L3-L4 lumbar fusion he states that tonight he ran out of his pain medication he has been having some increased pain severe with medications he states his low back pain currently is an 8 out of 10 denies any difficulty walking denies any bowel or bladder incontinence denies any saddle anesthesia. Denies any fevers. Patient has not seen his surgeon recently. Associated symptoms: Deny abdominal pain, chills, dysuria, fever(s), nausea or vomiting Review of Systems Const: Denies: fever(s), chills, body aches or change in appetite Eyes: Denies: blurry vision or eye discomfort ENMT: Denies: throat pain or dental pain Card: Denies: chest pain Resp: Denies: dyspnea GI: Denies: abdominal pain, nausea, vomiting or diarrhea : Denies: dysuria Musc: Reports: back pain Skin/Breast: Denies: rash Neuro: Denies: headache(s) Psych: Denies: depression Rafael/Lymph: Denies: easy bruising All/Imm: Denies: urticaria PFSH ED PFSH: Medical History Atrial fibrillation COPD (chronic obstructive pulmonary disease) Diabetes mellitus Type 2 Encounter for pre-operative cardiovascular clearance Hypertension Left lumbar radiculopathy Neuropathy, idiopathic Primary osteoarthritis of right knee Spondylolisthesis at L4-L5 level Surgical History History of AAA (abdominal aortic aneurysm) repair Hx of cholecystectomy Hx of eye surgery right S/P right knee arthroscopy twice by Status post lumbar spinal fusion Encouraged him to continue walking program to be cautious with bending lifting or twisting. We will see him back in the office in 1 week's time. Continue refraining from any bending lifting or twisting. We will discontinue the Hemovac drain. Family History Denies family history of Diabetes CAD (coronary artery disease) Clotting disorder Dementia Hyperlipidemia Psychiatric illness Chronic kidney disease (CKD) Suicide Anesthesia complication Bleeding disorder Family history of premature coronary artery disease Lung disease Cancer Hypertension Stroke Social History Smoking and tobacco status: former smoker Quit status (tobacco): has quit using tobacco Year quit tobacco: 3 years ago;2017 Alcohol intake: never Physical Exam Const: COMMON NORMALS: no acute distress, patient oriented x3 and healthy appearing HENMT: COMMON NORMALS: normocephalic and atraumatic HEAD & SCALP: normocephalic and atraumatic Eye: COMMON NORMALS: Equal, round and reactive pupils present and EOMs intact bilaterally PUPIL: Yes Equal, round and reactive pupils present Neck/C-Spine: COMMON NORMALS: full ROM and supple Chest: COMMONS NORMALS: normal inspection of the chest and normal palpation of entire chest wall Resp: COMMON NORMALS: normal respiratory effort, No retractions, No use of accessory muscles and clear to auscultation bilaterally AUSCULTATION: clear to auscultation bilaterally Cardio: COMMON NORMALS: regular rate, regular rhythm and No murmurs present (Cardio) RATE: regular rate RHYTHM: regular rhythm GI: COMMON NORMALS: Normal to inspection, nondistended, normoactive bowel sounds present, Soft to palpation, non-tender and no masses PALPATION: Yes Soft to palpation Back/Pelvis: OTHER: Slight tenderness to lower back incisions clean dry intact no signs of infection no drainage no redness Extremity: COMMON NORMALS: normal to inspection and full ROM Neuro: COMMON NORMALS: patient oriented x3, moves all extremities and no focal motor deficits Psych: COMMON NORMALS: mental status grossly normal, Normal thought process present and cooperative THOUGHT PROCESS: Normal thought process present Skin: COMMON NORMALS: no rashes or lesions noted and no wounds GENERAL SKIN EXAM: no rashes or lesions noted Course Vital Signs: Vital signs: Vital Signs Temperature 97.3 F L 06/10/21 04:51 Pulse Rate 75 06/10/21 08:53 Respiratory Rate 22 H 06/10/21 08:53 Blood Pressure 134/78 06/10/21 08:53 Pulse Oximetry 98 06/10/21 08:53 MDM - Back Pain/Injury Lab Data: Labs: Lab Results 06/10/21 06/10/21 04:24 05:05 WBC 7.2 10^3/uL 10^3/ uL (4.0-10.0) RBC 3.94 10^6/uL L 10 ^6/uL (4.1-5.3) Hgb 10.7 g/dL L g/dL (11.7-16.6) Hct 34.4 % L % (42.0-52.0) MCV 87.3 fl fl (80-94) MCH 27.2 pg L pg (28.0-34.0) MCHC 31.1 g/dL g/dL (30.0-36.0) RDW 15.4 % H % (12.1-15.1) Plt Count 170 10^3/cmm 10^3 /cmm (130-400) MPV 10.7 fL H fL (7.4-10.4) Neut % (Auto) 66.1 % % Lymph % (Auto) 20.7 % % [place] % (Auto) 9.4 % % Eos % (Auto) 3.1 % % Baso % (Auto) 0.6 % % Neut # (Auto) 4.76 10^3/uL 10^3 /uL (1.8-7.7) Lymph # (Auto) 1.5 10^3/uL 10^3/ uL (0.8-4.8) [place] # (Auto) 0.7 10^3/uL 10^3/ uL (0.2-0.9) Eos # (Auto) 0.2 10^3/uL 10^3/ uL (0.0-0.8) Baso # (Auto) 0.0 10^3/uL 10^3/ uL (0.0-0.1) Nucleated RBC % (a uto) 0 % % Nucleated RBCs # 0.0 /100WBC /100W BC Sodium 135 mmol/L L mmol /L (136-145) Potassium 4.0 mmol/L mmol/L (3.5-5.1) Chloride 104 mmol/L mmol/L (98-107) Carbon Dioxide 15 mmol/L L mmol/ L (22-29) Anion Gap 20.0 H (5-19) BUN 49 mg/dL H mg/dL (8-23) Creatinine 1.2 mg/dL mg/dL (0.7-1.2) GFR Calculation Not Reportable Glucose 105 mg/dL mg/dL (65-115) Calculated Osmolal ity 293 mOsm/kg mOsm/ kg (285-295) Calcium 9.3 mg/dL mg/dL (8.5-10.5) Total Bilirubin 0.2 mg/dL mg/dL (0.15-1.2) AST 7 U/L U/L (0-40) ALT 8 U/L U/L (0-41) Alkaline Phosphata se 105 IU/L IU/L (40-130) Total Protein 6.9 g/dL g/dL (6.6-8.7) Albumin 4.0 g/dL g/dL (3.5-5.2) Globulin 2.9 g/dL g/dL (1.3-4.6) Discharge Plan Discharge Patient Disposition: Home Clinical Impression: Lumbar radiculopathy, Status post laminectomy with spinal fusion Condition: Stable Prescriptions: New prednisone 20 mg tablet 20 mg PO BID 7 Days Qty: 15 RF: 0 tizanidine 2 mg capsule 2 mg PO Q8H PRN (Reason: muscle spasticity) Qty: 20 RF: 0 hydrocodone-acetaminophen 5-325 mg tablet 1 tab PO Q6H PRN (Reason: pain) Qty: 25 RF: 0 No Action Anoro Ellipta 62.5-25 mcg/actuation blister with device 1 inh INHALATION Q24H RF: 0 metformin 500 mg tablet 500 mg PO BID RF: 0 Lumigan 0.01 % drops 1 drop ophthalmic (eye) DAILY RF: 0 hydrocodone-acetaminophen 5-325 mg tablet 1 - 2 tab PO .Q4-6H PRN (Reason: pain) 7 Days Qty: 40 RF: 0 ascorbic acid (vitamin C) [Vitamin C] 1,000 mg Tablet 1,000 mg PO DAILY RF: 0 acetaminophen [Tylenol] 325 mg Tablet 325 mg PO QID PRN (Reason: Pain) RF: 0 pravastatin 40 mg tablet 40 mg PO DAILY RF: 0 ferrous sulfate [Iron (ferrous sulfate)] 325 mg (65 mg iron) Tablet 325 mg PO DAILY RF: 0 cholecalciferol (vitamin D3) [Vitamin D3] 25 mcg (1,000 unit) Capsule 25 mcg PO DAILY RF: 0 Multivitamin 50 Plus Tablet 1 tab PO DAILY RF: 0 PreserVision AREDS 7,160 unit- 113 mg-100 unit Tablet 2 tab PO BID RF: 0 gabapentin 300 mg capsule 300 mg PO QID RF: 0 Eliquis 5 mg Tablet 5 mg PO BID@0900,2100 Qty: 60 RF: 0 metoprolol tartrate 25 mg tablet 25 mg PO BID Qty: 60 RF: 0 hydrocodone-acetaminophen 5-325 mg Tablet 1 tab PO Q8H PRN (Reason: Pain) RF: 0 minocycline 100 mg capsule 100 mg PO DAILY RF: 0 spironolactone 25 mg Tablet 25 mg PO DAILY RF: 0 oxycodone-acetaminophen 5-325 mg Tablet 1 tab PO Q8H PRN (Reason: Pain) RF: 0 lisinopril 30 mg Tablet 30 mg PO DAILY RF: 0 Senna Plus 8.6-50 mg capsule 1 tab-cap PO DAILY Qty: 30 RF: 0 prednisone 20 mg tablet 20 mg PO DAILY Qty: 15 RF: 0 tizanidine 4 mg capsule 4 mg PO Q6H PRN (Reason: muscle spasticity) Qty: 20 RF: 0 Discharge Orders: Discharge ED (Routine); Ordered 06/10/21 Ordered By: Miles Villanueva Referrals: Mil Veronica MD [Primary Care Provider] - Discharge Diet: Usual diet Discharge Activity: Limit activity as instructed Patient Instructions: Opioid Safety Activity Restrictions/Additional Instructions: Follow-up with Dr. Rivero next week. Sign Out Sign Out Data: Patient Sign Out occurred on 06/10/21 at 06:36. Patient's care was discussed, and care was transferred from to Miles Villanueva DO. Coding Level of Care Code ED Senior Accounts Payable Specialist for Chg Fwd Exam Comprehensive Documented by User: Miles Villanueva DO 06/10/21 10:04 HPI - Back Pain/Injury General: Chief Complaint: Back Pain/Injury Stated Complaint: POST OP BACK PAIN Time Seen by Provider: 06/10/21 04:46 PFSH ED PFSH: Medical History Atrial fibrillation COPD (chronic obstructive pulmonary disease) Diabetes mellitus Type 2 Encounter for pre-operative cardiovascular clearance Hypertension Left lumbar radiculopathy Neuropathy, idiopathic Primary osteoarthritis of right knee Spondylolisthesis at L4-L5 level Surgical History History of AAA (abdominal aortic aneurysm) repair Hx of cholecystectomy Hx of eye surgery right S/P right knee arthroscopy twice by Status post lumbar spinal fusion Encouraged him to continue walking program to be cautious with bending lifting or twisting. We will see him back in the office in 1 week's time. Continue refraining from any bending lifting or twisting. We will discontinue the Hemovac drain. Family History Denies family history of Diabetes CAD (coronary artery disease) Clotting disorder Dementia Hyperlipidemia Psychiatric illness Chronic kidney disease (CKD) Suicide Anesthesia complication Bleeding disorder Family history of premature coronary artery disease Lung disease Cancer Hypertension Stroke Social History Smoking and tobacco status: former smoker Quit status (tobacco): has quit using tobacco Year quit tobacco: 3 years ago;2017 Alcohol intake: never Course Vital Signs: Vital signs: Vital Signs Temperature 97.3 F L 06/10/21 04:51 Pulse Rate 75 06/10/21 08:53 Respiratory Rate 22 H 06/10/21 08:53 Blood Pressure 134/78 06/10/21 08:53 Pulse Oximetry 98 06/10/21 08:53 MDM - Back Pain/Injury MDM Narrative: Medical decision making narrative: Patient pain is adequately controlled at this point. Discussed with him goal pain control is to make it tolerable also can be functional not 0 pain level. He expresses understanding of this concept. Wearing Goeden discharge him home on tizanidine prednisone burst and taper also refilled hydrocodone given 25 tablets. Is not can be able to get into see Dr. Rivero until next week. I did discuss Dr. Rivero who is on- call he authorized the 25 tablets and is in agreement it is appropriate. We will make an appointment next week with Dr. Rivero for follow-up encourage patient to continue to follow-up with Dr. Rivero if he has any further problems. Lab Data: Labs: Lab Results 06/10/21 06/10/21 04:24 05:05 WBC 7.2 10^3/uL 10^3/ uL (4.0-10.0) RBC 3.94 10^6/uL L 10 ^6/uL (4.1-5.3) Hgb 10.7 g/dL L g/dL (11.7-16.6) Hct 34.4 % L % (42.0-52.0) MCV 87.3 fl fl (80-94) MCH 27.2 pg L pg (28.0-34.0) MCHC 31.1 g/dL g/dL (30.0-36.0) RDW 15.4 % H % (12.1-15.1) Plt Count 170 10^3/cmm 10^3 /cmm (130-400) MPV 10.7 fL H fL (7.4-10.4) Neut % (Auto) 66.1 % % Lymph % (Auto) 20.7 % % [place] % (Auto) 9.4 % % Eos % (Auto) 3.1 % % Baso % (Auto) 0.6 % % Neut # (Auto) 4.76 10^3/uL 10^3 /uL (1.8-7.7) Lymph # (Auto) 1.5 10^3/uL 10^3/ uL (0.8-4.8) [place] # (Auto) 0.7 10^3/uL 10^3/ uL (0.2-0.9) Eos # (Auto) 0.2 10^3/uL 10^3/ uL (0.0-0.8) Baso # (Auto) 0.0 10^3/uL 10^3/ uL (0.0-0.1) Nucleated RBC % (a uto) 0 % % Nucleated RBCs # 0.0 /100WBC /100W BC Sodium 135 mmol/L L mmol /L (136-145) Potassium 4.0 mmol/L mmol/L (3.5-5.1) Chloride 104 mmol/L mmol/L (98-107) Carbon Dioxide 15 mmol/L L mmol/ L (22-29) Anion Gap 20.0 H (5-19) BUN 49 mg/dL H mg/dL (8-23) Creatinine 1.2 mg/dL mg/dL (0.7-1.2) GFR Calculation Not Reportable Glucose 105 mg/dL mg/dL (65-115) Calculated Osmolal ity 293 mOsm/kg mOsm/ kg (285-295) Calcium 9.3 mg/dL mg/dL (8.5-10.5) Total Bilirubin 0.2 mg/dL mg/dL (0.15-1.2) AST 7 U/L U/L (0-40) ALT 8 U/L U/L (0-41) Alkaline Phosphata se 105 IU/L IU/L (40-130) Total Protein 6.9 g/dL g/dL (6.6-8.7) Albumin 4.0 g/dL g/dL (3.5-5.2) Globulin 2.9 g/dL g/dL (1.3-4.6) Discharge Plan Discharge Patient Disposition: Home Clinical Impression: Lumbar radiculopathy, Status post laminectomy with spinal fusion Condition: Stable Prescriptions: New prednisone 20 mg tablet 20 mg PO BID 7 Days Qty: 15 RF: 0 tizanidine 2 mg capsule 2 mg PO Q8H PRN (Reason: muscle spasticity) Qty: 20 RF: 0 hydrocodone-acetaminophen 5-325 mg tablet 1 tab PO Q6H PRN (Reason: pain) Qty: 25 RF: 0 No Action Anoro Ellipta 62.5-25 mcg/actuation blister with device 1 inh INHALATION Q24H RF: 0 metformin 500 mg tablet 500 mg PO BID RF: 0 Lumigan 0.01 % drops 1 drop ophthalmic (eye) DAILY RF: 0 hydrocodone-acetaminophen 5-325 mg tablet 1 - 2 tab PO .Q4-6H PRN (Reason: pain) 7 Days Qty: 40 RF: 0 ascorbic acid (vitamin C) [Vitamin C] 1,000 mg Tablet 1,000 mg PO DAILY RF: 0 acetaminophen [Tylenol] 325 mg Tablet 325 mg PO QID PRN (Reason: Pain) RF: 0 pravastatin 40 mg tablet 40 mg PO DAILY RF: 0 ferrous sulfate [Iron (ferrous sulfate)] 325 mg (65 mg iron) Tablet 325 mg PO DAILY RF: 0 cholecalciferol (vitamin D3) [Vitamin D3] 25 mcg (1,000 unit) Capsule 25 mcg PO DAILY RF: 0 Multivitamin 50 Plus Tablet 1 tab PO DAILY RF: 0 PreserVision AREDS 7,160 unit- 113 mg-100 unit Tablet 2 tab PO BID RF: 0 gabapentin 300 mg capsule 300 mg PO QID RF: 0 Eliquis 5 mg Tablet 5 mg PO BID@0900,2100 Qty: 60 RF: 0 metoprolol tartrate 25 mg tablet 25 mg PO BID Qty: 60 RF: 0 hydrocodone-acetaminophen 5-325 mg Tablet 1 tab PO Q8H PRN (Reason: Pain) RF: 0 minocycline 100 mg capsule 100 mg PO DAILY RF: 0 spironolactone 25 mg Tablet 25 mg PO DAILY RF: 0 oxycodone-acetaminophen 5-325 mg Tablet 1 tab PO Q8H PRN (Reason: Pain) RF: 0 lisinopril 30 mg Tablet 30 mg PO DAILY RF: 0 Senna Plus 8.6-50 mg capsule 1 tab-cap PO DAILY Qty: 30 RF: 0 prednisone 20 mg tablet 20 mg PO DAILY Qty: 15 RF: 0 tizanidine 4 mg capsule 4 mg PO Q6H PRN (Reason: muscle spasticity) Qty: 20 RF: 0 Discharge Orders: Discharge ED (Routine); Ordered 06/10/21 Ordered By: Miles Villanueva Referrals: Mil Veronica MD [Primary Care Provider] - Discharge Diet: Usual diet Discharge Activity: Limit activity as instructed Patient Instructions: Opioid Safety Activity Restrictions/Additional Instructions: Follow-up with Dr. Rivero next week. Sign Out Sign Out Data: Patient Sign Out occurred on 06/10/21 at 06:36. Patient's care was discussed, and care was transferred from to Miles Villanueva DO. Coding Level of Care Code ED Senior Accounts Payable Specialist for Lloyd Fwd Exam Comprehensive
[2021-06-10 04:51] VITALS: BP 136/87; PULSE 86; RESP 20; TEMP 36.3; O2SAT 96; BMI 28.1
[2021-06-10 05:08] VITALS: RESP 20
[2021-06-10] MEDS: ondansetron 2 mg/ML SDV 2 mL 4 MG IVP (05:08)
[2021-06-10] MEDS: morphine 4 mg/mL SDV 1 mL IVP ×3 (05:08→06:47)
[2021-06-10 05:20] LABS: Alanine Aminotransferase 8 U/L (0-41); Alkaline Phosphatase 105 IU/L (40-130); Aspartate Amino Transferase 7 U/L (0-40); Blood Urea Nitrogen 49 mg/dL (8-23); Calcium 9.3 mg/dL (8.5-10.5); Carbon Dioxide 15 mmol/L (22-29); Chloride 104 mmol/L (98-107); Creatinine Clr Calc Pharmacy 50.2214; Globulin 2.9 g/dL (1.3-4.6); Glucose 105 mg/dL (65-115); Osmolality Calculated 293 mOsm/kg (285-295); Sodium 135 mmol/L (136-145); Total Bilirubin 0.2 mg/dL (0.15-1.2); Total Protein 6.9 g/dL (6.6-8.7)
[2021-06-10 05:23] LABS: Basophils % 0.6 %; Eosinophils # 0.2 10^3/uL (0.0-0.8); Eosinophils % 3.1 %; Hematocrit 34.4 % (42.0-52.0); Hemoglobin 10.7 g/dL (11.7-16.6); Lymphocytes # 1.5 10^3/uL (0.8-4.8); Lymphocytes % 20.7 %; Mean Corpuscular HGB Conc 31.1 g/dL (30.0-36.0); Mean Corpuscular Hemoglobin 27.2 pg (28.0-34.0); Mean Corpuscular Volume 87.3 fl (80-94); Mean Platelet Volume 10.7 fL (7.4-10.4); Monocytes # 0.7 10^3/uL (0.2-0.9); Monocytes % 9.4 %; Neutrophils # 4.76 10^3/uL (1.8-7.7); Neutrophils % 66.1 %; Nucleated Red Blood Cells % 0 %; Platelet Count 170 10^3/cmm (130-400); Red Blood Count 3.94 10^6/uL (4.1-5.3); Red Cell Distribution Width 15.4 % (12.1-15.1); White Blood Count 7.2 10^3/uL (4.0-10.0)
--- NOTE | 2021-06-10 05:32 | CTR_ITS ---
PROCEDURE INFORMATION: Exam: CT Lumbar Spine With Contrast Exam date and time: 06/10/2021 5:32 AM Age: 80 years old Clinical indication: Low back pain; Prior surgery; Surgery date: <1 month; Patient HX: Persistent back pain after lumbar fusion surgery 3 weeks ago. TECHNIQUE: Imaging protocol: Computed tomography images of the lumbar spine with intravenous contrast. Total images: 404 Radiation optimization: All CT scans at this facility use at least one of these dose optimization techniques: automated exposure control; mA and/or kV adjustment per patient size (includes targeted exams where dose is matched to clinical indication); or iterative reconstruction. Contrast material: OMNI 300; Contrast volume: 95 ml; Contrast route: INTRAVENOUS (IV); COMPARISON: MR lumbar spine wo con* [id number] 05/14/2021 12:29 PM RADIATION DOSE METRICS: Total DLP (mGy-cm): 2394.23 FINDINGS: Vertebrae: L4-L5 Posterior spinal fusion and laminectomy noted. Rods and pedicle screws are in place and there is no evidence of hardware failure. Discs/Spinal canal/Neural foramina: L5-S1 and L2-L3 degenerative disc disease is noted with vacuum phenomenon. Osteophytes are noted extending from the vertebrae. No acute spinal pathology is detected. Severe compression fracture at L1 chronic approximate 5 mm retropulsion of posterior aspect causing mild spinal canal stenosis. This finding is stable when compared to the prior exam. Vasculature: Infrarenal abdominal aortic aneurysm status post repair with aortic bilateral iliac graft. Soft tissues: Unremarkable. CT/CT lumbar spine w con [id number] IMPRESSION: 1. L4-L5 Posterior spinal fusion and laminectomy noted. Rods and pedicle screws are in place and there is no evidence of hardware failure. 2. L5-S1 and L2-L3 degenerative disc disease is noted with vacuum phenomenon. Osteophytes are noted extending from the vertebrae. No acute spinal pathology is detected. 3. Severe compression fracture at L1 chronic approximate 5 mm retropulsion of posterior aspect causing mild spinal canal stenosis. This finding is stable when compared to the prior exam. Radiation Dose CTDIVOL = (mGy): DLP = 2394.23 (mGy-cm)
[2021-06-10 05:36] VITALS: RESP 20; O2SAT 98
[2021-06-10] MEDS: iohexol 300 mg/mL 100 mL Btl IV (05:47)
[2021-06-10 06:47] VITALS: RESP 18
[2021-06-10] MEDS: sodium chloride 0.9% 500 ML 999 ML IV (06:47)
[2021-06-10 08:45] VITALS: RESP 22
[2021-06-10] MEDS: morphine 4 mg/mL SDV 1 mL 6 MG IVP (08:45)
[2021-06-10] MEDS: orphenadrine 30 mg/mL Inj 2 mL 60 MG IVP (08:48)
[2021-06-10] MEDS: dexamethasone 10 mg/mL INJ IVP (08:48)
[2021-06-10 08:53] VITALS: BP 134/78; PULSE 75; RESP 22; O2SAT 98
--- NOTE | 2021-06-10 10:17 | DCPLANNER ---
Addendum entered by Ani Cabrera 08/20/21 11:51: Patient had a follow up appointment scheduled with ortho - patient did attend appointment. Original Note: real estate branch manager had message to schedule a follow up appointment for patient with Dr. Rivero at ortho. real estate branch manager called the ortho clinic, spoke with Harleen, gave clinic patients information. A follow up appointment was scheduled for Monday, June 14, 2021 at 1:[address] Rivero. real estate branch manager gave patient his appointment information.
== END 2021-06-10 10:24 | disposition home or self-care (01) ==
PROVIDERS: Emergency Medicine; Emergency Provider Family Medicine; PCP Family Medicine
DX: M54.16 Radiculopathy, lumbar region (principal); Z98.890 Other specified postprocedural states; Z79.01 Long term (current) use of anticoagulants; Z79.84 Long term (current) use of oral hypoglycemic drugs; J44.9 Chronic obstructive pulmonary disease, unspecified; I10 Essential (primary) hypertension; E11.40 Type 2 diabetes mellitus with diabetic neuropathy, unspecified; Z87.891 Personal history of nicotine dependence
CPT/HCPCS: 72132; 80053; 85025; 96374; 96375; 96376; 99284; J1100; J2270; J2360; J2405; J7040; Q9967

== ENCOUNTER 2021-06-26 18:24 | Emergency (ER) | payer MEDICARE, OTHER, SELFPAY ==
[2021-06-26 18:32] VITALS: BP 161/86; PULSE 98; RESP 18; TEMP 36.9; O2SAT 95; BMI 28.1
--- NOTE | 2021-06-26 18:52 | ED_ITS ---
HPI - Back Pain/Injury General: Chief Complaint: Back Pain/Injury Stated Complaint: LOWER BK PAIN Time Seen by Provider: 06/26/21 18:33 History of Present Illness: HPI Narrative: 80-year-old male who had surgery on his back 5 weeks ago for stabilization of L4 and L5 with hardware. He notes that he been doing okay, had a checkup with his surgeon last week and seems to be healing well. For what ever reason he began to have pain on increasing over the weekend to the point that his home [place] was not helping he notes the pain is not necessarily in his back, but more in his posterior hip and down the left lower extremity radiating to the the foot. No weakness, no loss of sensation or bowel or bladder function MD elicited complaint: back pain Pertinent past history: prior back pain and back surgery Onset (ago): day(s) (3) Timing: progressively worsening Severity: moderate Similar Symptoms Previously: Yes Quality: sharp Location: lumbar spine and sacrum Radiation: left leg below the knee Exacerbating factors: movement Relieving factors: none Context: other Associated symptoms: Deny abdominal pain, chills, fecal incontinence, fever(s), nausea, numbness, tingling/numbness/burning or weakness Review of Systems Const: Denies: fever(s) or chills Card: Denies: chest pain Resp: Denies: dyspnea GI: Denies: abdominal pain, nausea or fecal incontinence Neuro: Denies: numbness in extremities [facility] ED PFSH: Medical History Atrial fibrillation COPD (chronic obstructive pulmonary disease) Diabetes mellitus Type 2 Encounter for pre-operative cardiovascular clearance Hypertension Left lumbar radiculopathy Neuropathy, idiopathic Primary osteoarthritis of right knee Spondylolisthesis at L4-L5 level Surgical History History of AAA (abdominal aortic aneurysm) repair Hx of cholecystectomy Hx of eye surgery right S/P right knee arthroscopy twice by Status post lumbar spinal fusion Encouraged him to continue walking program to be cautious with bending lifting or twisting. We will see him back in the office in 1 week's time. Continue refraining from any bending lifting or twisting. We will discontinue the Hemovac drain. Family History Denies family history of Diabetes CAD (coronary artery disease) Clotting disorder Dementia Hyperlipidemia Psychiatric illness Chronic kidney disease (CKD) Suicide Anesthesia complication Bleeding disorder Family history of premature coronary artery disease Lung disease Cancer Hypertension Stroke Social History Smoking and tobacco status: former smoker Quit status (tobacco): has quit using tobacco Year quit tobacco: 3 years ag o;2017 Alcohol intake: never Physical Exam Const: COMMON NORMALS: no acute distress, patient oriented x3 and alert HENMT: COMMON NORMALS: normocephalic HEAD & SCALP: normocephalic Chest: COMMONS NORMALS: normal inspection of the chest Resp: COMMON NORMALS: normal respiratory effort Cardio: COMMON NORMALS: regular rate and regular rhythm RATE: regular rate RHYTHM: regular rhythm GI: COMMON NORMALS: Normal to inspection, nondistended, normoactive bowel sounds present and Soft to palpation PALPATION: Yes Soft to palpation Back/Pelvis: OTHER: Lumbar incision is completely healed. No redness, no swelling, no streaking. No warmth. Lumbar spine is essentially minimally tender. Pain is reproduced by straight leg raise testing on the left which causes radicular pain down the leg posteriorly past the knee. Neg straight leg raise test on the right. Neuro: COMMON NORMALS: patient oriented x3 SENSORIUM/ORIENTATION: Yes alert Course Vital Signs: Vital signs: Vital Signs Temperature 98.4 F 06/26/21 18:32 Pulse Rate 84 06/26/21 20:50 Respiratory Rate 20 H 06/26/21 20:50 Blood Pressure 153/79 06/26/21 20:50 Pulse Oximetry 97 06/26/21 20:50 MDM - Back Pain/Injury MDM Narrative: Medical decision making narrative: Patient was imaged a little over a week ago here and hardware appeared stable he has a compression fracture of L5 which is stable as well at that point. He has no warning signs on exam. Postoperatively, his incision looks excellent. He will be allowed home with a short burst of steroid for radicular pain Discharge Plan Discharge Patient Disposition: Home Clinical Impression: Lumbar radiculopathy Condition: Stable Prescriptions: New Medrol (Gaetano) 4 mg tablets,dose pack See Rx Instructions .ROUTE .COMPLEX Qty: 21 RF: 0 No Action Anoro Ellipta 62.5-25 mcg/actuation blister with device 1 inh INHALATION Q24H RF: 0 metformin 500 mg tablet 500 mg PO BID RF: 0 Lumigan 0.01 % drops 1 drop ophthalmic (eye) DAILY RF: 0 hydrocodone-acetaminophen 5-325 mg tablet 1 - 2 tab PO .Q4-6H PRN (Reason: pain) 7 Days Qty: 40 RF: 0 ascorbic acid (vitamin C) [Vitamin C] 1,000 mg Tablet 1,000 mg PO DAILY RF: 0 acetaminophen [Tylenol] 325 mg Tablet 325 mg PO QID PRN (Reason: Pain) RF: 0 pravastatin 40 mg tablet 40 mg PO DAILY RF: 0 ferrous sulfate [Iron (ferrous sulfate)] 325 mg (65 mg iron) Tablet 325 mg PO DAILY RF: 0 cholecalciferol (vitamin D3) [Vitamin D3] 25 mcg (1,000 unit) Capsule 25 mcg PO DAILY RF: 0 Multivitamin 50 Plus Tablet 1 tab PO DAILY RF: 0 PreserVision AREDS 7,160 unit- 113 mg-100 unit Tablet 2 tab PO BID RF: 0 gabapentin 300 mg capsule 300 mg PO QID RF: 0 Eliquis 5 mg Tablet 5 mg PO BID@0900,2100 Qty: 60 RF: 0 metoprolol tartrate 25 mg tablet 25 mg PO BID Qty: 60 RF: 0 hydrocodone-acetaminophen 5-325 mg Tablet 1 tab PO Q8H PRN (Reason: Pain) RF: 0 minocycline 100 mg capsule 100 mg PO DAILY RF: 0 spironolactone 25 mg Tablet 25 mg PO DAILY RF: 0 oxycodone-acetaminophen 5-325 mg Tablet 1 tab PO Q8H PRN (Reason: Pain) RF: 0 lisinopril 30 mg Tablet 30 mg PO DAILY RF: 0 Senna Plus 8.6-50 mg capsule 1 tab-cap PO DAILY Qty: 30 RF: 0 prednisone 20 mg tablet 20 mg PO DAILY Qty: 15 RF: 0 tizanidine 4 mg capsule 4 mg PO Q6H PRN (Reason: muscle spasticity) Qty: 20 RF: 0 tizanidine 2 mg capsule 2 mg PO Q8H PRN (Reason: muscle spasticity) Qty: 20 RF: 0 hydrocodone-acetaminophen 5-325 mg tablet 1 tab PO Q6H PRN (Reason: pain) Qty: 25 RF: 0 Discharge Orders: Discharge ED (Routine); Ordered 06/26/21 Ordered By: Anatoly Carmichael Referrals: Eduardo Rivero DO [Physician] - 4-7 days Mil Veronica MD [Primary Care Provider] - Discharge Diet: Advance as tolerated Discharge Activity: Increase activity as tolerated Patient Instructions: Lumbar Radiculopathy (ED), Opioid Safety Activity Restrictions/Additional Instructions: Return for fever greater than 100, loss of control of your bowel or bladder, numbness to the genital area, any other concerns. Coding Level of Care Code ED Head End Desizing Machine Operator for Chg Fwd Exam Detailed
[2021-06-26] MEDS: ketorolac 30 mg/mL INJ 15 MG IVP (19:15)
[2021-06-26 19:16] VITALS: RESP 20
[2021-06-26] MEDS: morphine 4 mg/mL SDV 1 mL IVP (19:16)
[2021-06-26 20:00] VITALS: BP 152/82; PULSE 82; RESP 16; O2SAT 97
[2021-06-26 20:45] VITALS: RESP 18
[2021-06-26] MEDS: oxyCODONE-APAP 5-325 mg Tablet 2 TAB PO (20:45)
[2021-06-26 20:50] VITALS: BP 153/79; PULSE 84; RESP 20; O2SAT 97
== END 2021-06-26 20:52 | disposition home or self-care (01) ==
PROVIDERS: Emergency Provider Emergency Medicine; PCP Family Medicine
DX: M54.16 Radiculopathy, lumbar region (principal); Z79.01 Long term (current) use of anticoagulants; Z79.84 Long term (current) use of oral hypoglycemic drugs; J44.9 Chronic obstructive pulmonary disease, unspecified; E11.9 Type 2 diabetes mellitus without complications; I10 Essential (primary) hypertension; Z87.891 Personal history of nicotine dependence
CPT/HCPCS: 96374; 96375; 99284; J1885; J2270; J2920

== ENCOUNTER → 2021-07-14 14:10 | Outpatient (BNVA) | payer MEDICARE, OTHER, SELFPAY | PROVIDERS: PCP Family Medicine; Visit Provider Physician Assistant | DX: Z48.89 Encounter for other specified surgical aftercare (principal); Z98.1 Arthrodesis status | CPT/HCPCS: 72100 ==

== ENCOUNTER → 2021-08-16 13:09 | Outpatient (BNVA) | payer MEDICARE, OTHER, SELFPAY | PROVIDERS: PCP Family Medicine; Visit Provider Physician Assistant | DX: M54.16 Radiculopathy, lumbar region (principal); M54.9 Dorsalgia, unspecified; Z48.89 Encounter for other specified surgical aftercare; Z98.1 Arthrodesis status | CPT/HCPCS: 72100 ==

== ENCOUNTER → 2021-12-28 08:45 | Outpatient (BNVA) | payer MEDICARE, OTHER, SELFPAY | PROVIDERS: PCP Family Medicine; Visit Provider Specialist | DX: M17.10 Unilateral primary osteoarthritis, unspecified knee (principal) | CPT/HCPCS: 73560; 73565; 99214 ==

== ENCOUNTER 2022-01-17 14:09 | Observation (INO) | payer MEDICARE, OTHER, SELFPAY ==
[2022-01-12 09:50] VITALS: BMI 29.7
--- NOTE | 2022-01-12 09:54 | ECG_ITS ---
[facility] Test Date: 2022-01-12 Pat Name: Brandon Gracia Department: Room: Gender: Male Manager Ob: : 1940 Requested By: Beatriz Mcpherson Order Number: [id number] Roberta MD: Alfredo Silveira M.D. Measurements Intervals [place] Rate: 62 P: 91 [place]: 253 QRS: -13 QRSD: 99 T: 46 QT: 374 QTc: 381 Interpretive Statements SINUS RHYTHM WITH FIRST DEGREE AV BLOCK LOW QRS VOLTAGE [QRS DEFLECTION < 0.5/1.0 mV IN LIMB/CHEST LEADS] PATTERN CONSISTENT WITH PULMONARY DISEASE Compared to ECG 05/14/2021 17:52:08 First degree AV block now present Low QRS voltage now present Left-axis deviation no longer present Electronically Signed On 01-13-2022 6:01:21 CDT by Alfredo Silveira M.D. [id number]
[2022-01-12 10:33] LABS: Add Urine Microscopic? NO; Charge for UA Resulting for Rev
--- NOTE | 2022-01-12 10:40 | P.ANESASSM_ITS ---
Pre-Anesthetic Assessment Height/Weight: Height 1.7 m Weight 86.183 kg Preop Diagnosis: Primary osteoarthritis left knee Operation Date: 01/17/22 07:00 Proposed Procedures p LEFT TOTAL KNEE ARTHROPLASTY 93999,M17.10(Left) - Carri Leslie MD Familial anesthetic complications: None Was Beta Aravind taken within 24 hours: Yes Was Clonidine taken within 24 hours: N/A Social No alcohol and No tobacco (h/o smoking) Exam alert, oriented x 3, clear to auscultation bilaterally and regular rate & rhythm Airway Submandibular: within normal limits Cervical ROM: within normal limits Mallampati: Class III Dentition: chipped Pulmonary Chronic Obstructive Pulmonary Disease CV/HEM Atrial Fibrillation and Hypertension Metabolic Diabetes Mellitus, Hyperlipidemia and Morbid Obesity Musc/skel Lower Back Pain and Osteoarthritis/DJD h/o spine surgery Anesthetic Plan ASA status: 3 Anesthesia: Regional (specify below) (SAB with adductor blk) Medications/Allergies Home Medications Medication Instructions Recorded Confirmed Last Taken Type bimatoprost 0.01 % eye drops 1 drop OPHTHALMIC (EYE) DAILY 08/12/19 01/12/22 03/06/21 History (Lumigan) metformin 500 mg tablet 500 mg PO BID 08/12/19 01/12/22 05/13/21 History umeclidinium 62.5 mcg-vilanterol 1 inh INHALATION Q24H 08/12/19 01/12/22 05/13/21 History 25 mcg/actuation powdr for inhalation (Anoro Ellipta) acetaminophen 325 mg tablet 325 mg PO QID PRN 03/07/21 01/12/22 Unknown History (Tylenol) gabapentin 300 mg capsule 300 mg PO QID 03/07/21 01/12/22 05/13/21 History dzaeesqtrfta-juungiwm-ixvphp 1 tab PO DAILY 03/07/21 01/12/22 05/13/21 History tablet (Multivitamin 50 Plus) pravastatin 40 mg tablet 40 mg PO DAILY 03/07/21 01/12/22 05/13/21 History vitamins A,C,J-qmxo-rwvydb 7,160 2 tab PO BID 03/07/21 01/12/22 05/13/21 History unit-113 mg-100 unit tablet (PreserVision AREDS) lisinopril 30 mg tablet 30 mg PO DAILY 05/14/21 01/12/22 05/13/21 History spironolactone 25 mg tablet 25 mg PO DAILY 05/14/21 01/12/22 05/13/21 History metoprolol tartrate 25 mg tablet 25 mg PO DAILY 01/12/22 01/12/22 Unknown History Allergies Allergy/AdvReac Type Severity Reaction Status Date / Time No Known Allergies Allergy Verified 08/16/21 13:15 [facility] Anesthesia Medical History Atrial fibrillation COPD (chronic obstructive pulmonary disease) Diabetes mellitus Type 2 Encounter for pre-operative cardiovascular clearance Hypertension Left lumbar radiculopathy Neuropathy, idiopathic Primary osteoarthritis of right knee Spondylolisthesis at L4-L5 level Surgical History History of AAA (abdominal aortic aneurysm) repair Hx of cholecystectomy Hx of eye surgery right S/P right knee arthroscopy twice by Status post lumbar spinal fusion Encouraged him to continue walking program to be cautious with bending l ifting or twisting. We will see him back in the office in 1 week's time. Continue refraining from any bending lifting or twisting. We will discontinue the Hemovac drain. Family History Denies family history of Diabetes CAD (coronary artery disease) Clotting disorder Dementia Hyperlipidemia Psychiatric illness Chronic kidney disease (CKD) Suicide Anesthesia complication Bleeding disorder Family history of premature coronary artery disease Lung disease Cancer Hypertension Stroke Social History Smoking and tobacco status: former smoker Quit status (tobacco): has quit using tobacco Year quit tobacco: 3 years ago; 2017 Alcohol intake: never Data Anesthesia : 01/12/22 10:20 01/12/22 10:20 Cardiac Studies: Echocardiogram 03/11/21
[2022-01-12 10:43] LABS: Basophils # 0.1 10^3/uL (0.0-0.1); Basophils % 0.7 %; Eosinophils # 0.2 10^3/uL (0.0-0.8); Eosinophils % 2.5 %; Hematocrit 40.8 % (42.0-52.0); Hemoglobin 13.7 g/dL (11.7-16.6); Lymphocytes % 23.6 %; Mean Corpuscular HGB Conc 33.6 g/dL (30.0-36.0); Mean Corpuscular Hemoglobin 30.3 pg (28.0-34.0); Mean Corpuscular Volume 90.3 fl (80-94); Mean Platelet Volume 11.5 fL (7.4-10.4); Monocytes # 0.6 10^3/uL (0.2-0.9); Monocytes % 7.7 %; Neutrophils # 5.43 10^3/uL (1.8-7.7); Neutrophils % 65.3 %; Nucleated Red Blood Cells % 0 %; Platelet Count 184 10^3/cmm (130-400); Red Blood Count 4.52 10^6/uL (4.1-5.3); Red Cell Distribution Width 14.7 % (12.1-15.1); White Blood Count 8.3 10^3/uL (4.0-10.0)
[2022-01-12 10:52] LABS: Alanine Aminotransferase 19 U/L (0-41); Albumin Level 4.4 g/dL (3.5-5.2); Alkaline Phosphatase 77 IU/L (40-130); Anion Gap 18.4 (5-19); Aspartate Amino Transferase 15 U/L (0-40); Blood Urea Nitrogen 22 mg/dL (8-23); Calcium 9.2 mg/dL (8.5-10.5); Carbon Dioxide 20 mmol/L (22-29); Chloride 106 mmol/L (98-107); Globulin 2.3 g/dL (1.3-4.6); Glucose 124 mg/dL (65-115); Osmolality Calculated 295 mOsm/kg (285-295); Potassium 4.4 mmol/L (3.5-5.1); Sodium 140 mmol/L (136-145); Total Bilirubin 0.3 mg/dL (0.15-1.2); Total Protein 6.7 g/dL (6.6-8.7)
[2022-01-12 11:21] LABS: Bilirubin Urine Neg (Negative); Blood Urine Neg (Negative); Glucose Urine UA Norm (Normal); Ketones Urine Negative (Negative); Leukocyte Esterase Urine Negative (Negative); Nitrate Urine Negative (Negative); Protein Urine Neg (Negative); Specific Gravity, Urine 1.025 (1.005-1.030); Urine Appearance Clear (CLEAR); Urine Color Yellow (Yellow); Urobilinogen Urine Norm (Negative); pH Urine 5 (5-7)
[2022-01-17] VITALS (35 sets, daily range): BP systolic 119–174; BP diastolic 55–130; PULSE 70–89; RESP 10–20; TEMP 36.1–36.8; O2SAT 93–99; BMI 32.2
--- NOTE | 2022-01-17 | XR_ITS ---
WS: [id number] Exam: XR knee RT 1-2V [id number] Date/Time of Exam: 01/17/2022 10:37 AM Reason For Exam: Status post right total knee Comparison 12/28/2021. A total knee prosthesis has been placed and appears to be in excellent position. Postoperative change s in the adjacent soft tissues. Anterior surgical skin clips are noted. XR/XR knee LT 1-2V [id number] IMPRESSION: 1. Total knee replacement in excellent position.
[2022-01-17 06:31] LABS: Glucose Point of Care 154 mg/dL (70-110)
[2022-01-17] MEDS: sodium chloride 0.9% 1,000 ML 30 ML IV (06:43)
[2022-01-17] MEDS: acetaminophen 1,000 MG/100 ML PIGGYBACK 400 MG IV (06:43)
[2022-01-17] MEDS: CELEcoxib 200 mg Capsule 400 MG PO (06:44)
--- NOTE | 2022-01-17 07:01 | W.PM.OPSUD ---
Surgery/Procedure H&P Update DATE OF PROCEDURE: January 17, 2022 DATE H&P PERFORMED: 12/28/21 H&P UPDATE INFORMATION: I have reviewed H&P completed within last 30 days, I have examined patient prior to procedure, No changes to prior documentation and H&P is in [facility] EMR on date indicated PREOP DIAGNOSIS: Left Total Knee Arthroplasty PLANNED PROCEDURE: Operation Date: 01/17/22 07:00 Proposed Procedures p LEFT TOTAL KNEE ARTHROPLASTY 06413,M17.10(Left) - Carri Leslie MD Related Problem List Diagnoses (1) Primary osteoarthritis of right knee:
--- NOTE | 2022-01-17 08:18 | P.ANESUD_ITS ---
Pre-Anesthetic Update Pre-Anesthetic Assessment: Date of Surgery/Procedure: 01/17/22 Preop Rupal gnosis: Left Total Knee Arthroplasty Proposed Procedure: Operation Date: 01/17/22 07:00 Proposed Procedures p LEFT TOTAL KNEE ARTHROPLASTY 20267,M17.10(Left) - Carri Leslie MD Any changes to Pre-Anesthetic Assessment?: No Last Intake: Intake Last Liquid Date 01/16/22 Last Liquid Time 22:00 Last Solid Date 01/16/22 Last Solid Time 18:30 Vitals: Temperature 97.0 F L 01/17/22 06:17 Temperature Source Temporal Artery S can 01/17/22 06:17 Pulse Rate 70 01/17/22 06:17 Pulse Rhythm 01/17/22 06:17 Pulse Strength 3+ Normal 01/17/22 06:17 Respiratory Rate 18 01/17/22 06:17 Blood Pressure 164/85 01/17/22 06:17 Blood Pressure Katerin n 111 01/17/22 06:17 Pulse Oximetry 96 01/17/22 06:17 Oxygen Delivery Me thod 01/17/22 06:17 Exam: Pre-Anes Outpt Exam: alert, oriented x 3, clear to auscultation bi laterally and regular rate & rhythm Cardiac Studies: Echocardiogram 03/11/21 Anesthesia Procedures Nerve Block: Nerve Block 1: Main Anesthesia: spinal anesthesia block Time Out Performed: Yes Nerve block location: adductor canal (left) Anesthesia monitors applied: pulse oximetry, EKG, BP cuff and oxygen Nerve block position: supine Anesthetic Used: ropivicaine 0.5% Amount of anesthesia used (mL): 20 Ultrasound used to: recognize landmarks Nerve Stimulator Used?: No Interscalene/Femoral BLK: 4 stimuplex 21 g needle used for position and inplane approach Injection: neg aspiration of heme Patient Tolerated Procedure: well Complications: none
[2022-01-17] MEDS: tranexamic acid 1,000 mg/10mL SDV 1000 MG IV (09:12)
[2022-01-17] MEDS: vancomycin 1,000 MG SDV 1000 MG XX (09:13)
[2022-01-17] MEDS: ceFAZolin 1,000 mg SDV 2000 MG IRRIGATION (09:13)
[2022-01-17] MEDS: fentaNYL 50 mcg/mL INJ 2mL IVP (10:29)
--- NOTE | 2022-01-17 10:36 | PM.PACU ---
Documented by User: Jt Rodriguez CRNA 01/17/22 10:37 PACU note Narrative: VSS, Good respiratory effort, report to DIRECTOR SALES SUPPORT Exam: awake
--- NOTE | 2022-01-17 10:37 | XR_ITS ---
WS: [id number] Exam: XR knee RT 1-2V [id number] Date/Time of Exam: 01/17/2022 10:37 AM Reason For Exam: Status post right total knee Comparison 12/28/2021. A total knee prosthesis has been placed and appears to be in excellent position. Postoperative change s in the adjacent soft tissues. Anterior surgical skin clips are noted. XR/XR knee RT 1-2V [id number] IMPRESSION: 1. Total knee replacement in excellent position.
--- NOTE | 2022-01-17 10:53 | P.OP_ITS ---
Operative Report Date of procedure: January 17, 2022 Pre-op diagnosis: Primary osteoarthritis left knee Post-op diagnosis: Primary osteoarthritis left knee Post-op findings: Significant bone discoloration with bone being sent to pathology. Procedure done: Left total knee arthroplasty Implants: The Cindi total knee system with a size 5 triathlon beaded posterior stabilized femur left, a triathlon titanium tibial component size 5 beaded, a triathlon X3 posterior stabilized tibial bearing insert size 5 X 1 mm and a beaded triathlon titanium asymmetric patella size 35 x 10 mm Specimens removed/disposition: Bone sent to pathology, synovium sent to pathology, cultures taken. Pathology: other (See specimens) Surgeon: Carri [facility] Specialist: [facility] operating room technicians Anesthesia: MAC (With spinal, ASA 3) Estimated blood loss (mL): 25 Tourniquet time (min): 110 (At 250 mmHg) IV fluids (mL): 1,000 Urine output (mL): 100 Complications: None Findings: Significant discoloration of the bone with complete obliteration of cartilage and burnishing of the bone. Condition: stable Disposition: PACU (Then to floor for postoperative rehabilitation and pain management.) Brief History: This 81-year-old gentleman presented to my office with severe complaints of bilateral knee pain. At the time, he noted that his left was worse than his right. He uses a walker for ambulation. Patient previously received a Monovisc injection in the right knee by Dr. Leslie 09/01/19. He states the injections provided comfort for a maximum of a week. He states his bilateral knee pain has been on going for several years. He states he previously had 3 surgeries on his right knee, and one surgery on his left knee. He complains of more pain when he is walking and standing. He complains of his left knee giving out while he is walking, causing him to fall.? Both knees cause him significant difficulties in his activities of daily living.? After discussion, the patient wished to proceed with left total knee arthroplasty. Risks and complications were discussed with him. Consents were signed. Questions were answered at the time of the office visit. Procedure: The patient was brought to the operating theater, and after undergoing adequate spinal anesthesia supplemented with adductor canal block and MAC, ASA 3, the left lower extremity was prepped with Dura-Prep and draped in usual fashion following placement of a tourniquet high on the leg. The leg was then draped free. Following prepping and draping, the leg was exsanguinated, and the tourniquet was elevated to 250 mmHg for a total tourniquet time of 110 minutes.? Prior to elevation of the tourniquet, but following exposure of the site of surgery, a surgical pause was performed. At the time of the surgical pause, we confirmed the site and side of surgery. Additionally, we confirmed the appropriate and timely administration of preoperative antibiotics, Ancef 2 g and Transexemic acid 1 g.? The availability of equipment was confirmed, and the patient's identity was verbalized as well. An additional transexemic acid 1 g was given at the end of the surgical procedure as well Following the surgical pause, an incision was made centering over the patella continuing proximally and distally as necessary to allow access to the knee joint. Dissection continued through skin and soft tissues using a scalpel. Hemostasis was obtained using electrocautery. The skin incision was followed by a median parapatellar arthrotomy. The leg was extended and the patella was e verted. Following this, the leg was returned to flexed position.? The bone was noted to be significantly discolored. There was varnishing and eburnation particular of the medial femoral condyle. The discoloration was a brown to kolb. It included the bone and soft tissues even the patellar tendon. Specimens were sent to pathology including synovium with meniscus and bone, and cultures were taken. Distal femur was exposed, and a drill hole was made in this for placement of the distal femoral jig. The distal femoral jig was set at 5? of valgus. The distal femoral cutting block was then placed in appropriate position, and an maria alejandra wing was used to confirm an appropriate amount of distal femur would be resected.? The distal femoral resection was accomplished with 8 mm of bone being resected distally.? After the distal femoral resection was accomplished, the femur was measured, and it measured a size 5.? Medial lateral dimension also measured a size 5.? A size 5 femoral cutting block was placed in position, and we were then able to accomplish the anterior, posterior and chamfer cuts. This jig was then removed, and the notch guide was placed in position. With the notch guide in appropriate position, the notch was excised including resection of the anterior and posterior cruciate ligaments. This notch was to allow for the posterior stabilized femoral component. At this point, the femur was prepared and attention was directed to the proximal tibia.? The posterior knee retractor was placed along with medial and lateral retractors. Further resection of the menisci was accomplished as we had better visualization. A complete meniscectomy was performed both medially and laterally with care being taken to protect the popliteus. Retractors were then placed so that the proximal tibia was well visualized. A drill hole was then made in the tibia for placement of the intramedullary guide. This guide was placed so that approximately 2 mm of bone would be resected from the deficient medial tibial plateau. The intramedullary guide was utilized supplemented with an extramedullary guide to assure appropriate alignment for the proximal tibial resection. The proximal tibial jig was then evaluated, pinned in position, and the proximal tibial resection was accomplished without difficulty. The jig was removed, and the proximal tibia was measured. It measured a size 5. We then attempted a trial reduction with a size 5 by 11 mm.? Osteophytes were also removed from the tibia, and a medial release was accomplished.? The femoral component was placed in position for the trial reduction, and the knee was placed through range of motion.? With this, there was appropriate patellar tracking. Extension was noted to be full as well.? With had excellent varus valgus alignment.? The knee was stable to varus valgus stress as well.? Therefore, this was the chosen component.? There was full extension and flexion without lift off and the rotation of the tibia was marked.? Alignment was ch ecked from the hip to the ankle, and this was noted to be appropriate as well. Attention was then directed to the patella. The patella was measured with a caliper.? We resected sufficient patella to leave approximately 14 mm of patella remaining.? Measurements of the patella then indicated that a size asymmetric 35 mm x 10 mm was the appropriate patellar size. We then placed the jig to drill for the 3 pegs of the press-fit patella, and these drill holes were made without incident. A trial patella was then placed, and the knee was placed through range of motion. The patella was noted to track nicely without evidence of subluxation.? The femur was prepared for a press-fit femur by drilling 2 holes for the femoral pegs.? All trial components were subsequently removed. The tibial tray was then pinned into position, and we broached the tibia for the stem of the tibial component.? Subsequently, 4 drill holes were made for placement of the press-fit tibia.? This was accomplished without difficulty. Care was taken to assure appropriate rotation of the tibia as well as appropriate position on the proximal tibia. The tibial tray was completely seated on the proximal tibia. Following broaching, the tibial guide was removed, and all surfaces were copiously irrigated. The surfaces were then dried and a bone plug was placed into the distal femur.? Exparel was also subsequently injected. The Tritanium tibia was impacted into position.? The beaded femur was then impacted into position in a cementless fashion. The tibial insert was placed. The patella was pressed into position with a patellar clamp.? The knee was then copiously irrigated with betadine and saline and suctioned dry. Attention was then directed to closure. Closure was accomplished with 0 Vicryl in the fascial tissues.? Following this, a 2-0 Monocryl was used in the subcutaneous tissues, and the skin was closed with skin kwasi.? Care was taken to assure an excellent subcutaneous as well as skin closure.? A sterile dressing was then placed consisting of Dermabond Prineo, Telfa, OpSite, sterile soft roll including over the foot, and an Hood wrap. The patient was returned the Recovery Room in a satisfactory condition. X-rays were obtained and reviewed there.? The patient will be discharged to the floor for postoperative rehabilitation and pain management. Related Problem List Diagnoses (1) Status post total left knee replacement not using cement:
--- NOTE | 2022-01-17 11:28 | SUR.EXTENDED ---
patient placed in extended care. patient states he is comfortable. pt family at bedside in ops room 2. call light given to patient. dressing is dry and intact to left knee.
[2022-01-17] MEDS: oxyCODONE 5 mg IR Tab/Cap PO ×3 (12:54→23:46)
--- NOTE | 2022-01-17 14:14 | ANE.PACU2 ---
Inpatient post-anesthesia follow up: Airway intact: Yes Vital signs: Temperature 97.0 F Pulse Rate 81 Respiratory Rate 17 Blood Pressure 151/83 Pulse Oximetry 95 Oxygen Delivery Me thod Room Air Oxygen Flow Rate Fraction of Inspir ed Oxygen Hydration adequate: Yes Nausea and vomiting: No Pain level: 2 Mental status: Baseline
--- NOTE | 2022-01-17 14:34 | SUR.EXTENDED ---
patient transported to 269 via floor bed. patient awake and alert, on room air. patient has dressing to left knee, dry and intact. scds hooked back to patient when in floor room. toes to left foot warm and pink. patient able to move both legs. patients belongings taken to 269. floor nurse vikram in room on arrival. patient states he is comfortable at this time.
[2022-01-17] MEDS: gabapentin 300 mg Capsule PO ×3 (15:38→20:23)
[2022-01-17] MEDS: chlorhexidine gluconate 0.12% Btl 473 mL 30 ML MUCOUS MEM ×2 (15:38→20:23)
[2022-01-17] MEDS: calcium carbonate 500 mg Chew Tablet 1000 MG PO (17:35)
[2022-01-17] MEDS: mupirocin oint 22 gm 1 APPLIC NASAL (17:35)
[2022-01-17] MEDS: iron polysaccharide complex 150 mg Capsule PO (17:35)
[2022-01-17] MEDS: sennosides-docusate Tablet 2 TAB PO (17:36)
[2022-01-17] MEDS: metformin 500 mg Tablet PO (17:36)
[2022-01-17] MEDS: acetaminophen 325 mg Tablet PO (23:46)
[2022-01-18] VITALS (7 sets, daily range): BP systolic 135–162; BP diastolic 72–92; PULSE 76–103; RESP 18; TEMP 36.3–37.1; O2SAT 91–95
[2022-01-18 03:19] LABS: Basophils % 0.3 %; Eosinophils % 0.1 %; Hematocrit 38.7 % (42.0-52.0); Hemoglobin 12.9 g/dL (11.7-16.6); Lymphocytes # 0.8 10^3/uL (0.8-4.8); Lymphocytes % 6.2 %; Mean Corpuscular HGB Conc 33.3 g/dL (30.0-36.0); Mean Corpuscular Hemoglobin 29.5 pg (28.0-34.0); Mean Corpuscular Volume 88.4 fl (80-94); Mean Platelet Volume 11.5 fL (7.4-10.4); Monocytes # 1.1 10^3/uL (0.2-0.9); Monocytes % 9.3 %; Neutrophils # 10.22 10^3/uL (1.8-7.7); Neutrophils % 83.7 %; Nucleated Red Blood Cells % 0 %; Platelet Count 157 10^3/cmm (130-400); Red Blood Count 4.38 10^6/uL (4.1-5.3); Red Cell Distribution Width 14.3 % (12.1-15.1); White Blood Count 12.2 10^3/uL (4.0-10.0)
[2022-01-18 03:34] LABS: Anion Gap 19.1 (5-19); Blood Urea Nitrogen 20 mg/dL (8-23); Calcium 9.2 mg/dL (8.5-10.5); Carbon Dioxide 18 mmol/L (22-29); Chloride 104 mmol/L (98-107); Glucose 172 mg/dL (65-115); Osmolality Calculated 289 mOsm/kg (285-295); Potassium 5.1 mmol/L (3.5-5.1); Sodium 136 mmol/L (136-145)
[2022-01-18] MEDS: oxyCODONE 5 mg IR Tab/Cap PO ×3 (04:50→12:55)
[2022-01-18] MEDS: cholecalciferol (vitamin D3) 1,000 unit Tablet 1000 UNIT PO (08:04)
[2022-01-18] MEDS: aspirin 325 mg EC Tablet PO (08:04)
[2022-01-18] MEDS: metformin 500 mg Tablet PO (08:04)
[2022-01-18] MEDS: sennosides-docusate Tablet 2 TAB PO (08:04)
[2022-01-18] MEDS: gabapentin 300 mg Capsule PO ×2 (08:05→12:55)
[2022-01-18] MEDS: metoprolol tartrate 25 mg Tablet PO (08:05)
[2022-01-18] MEDS: CELEcoxib 200 mg Capsule PO (08:05)
[2022-01-18] MEDS: spironolactone 25 mg Tablet PO (08:05)
[2022-01-18] MEDS: iron polysaccharide complex 150 mg Capsule PO (08:06)
[2022-01-18] MEDS: atorvastatin 40 mg Tablet 20 MG PO (08:06)
[2022-01-18] MEDS: lisinopril 20 mg Tablet 30 MG PO (08:06)
[2022-01-18] MEDS: multivitamin therapeutic Tablet 1 TAB PO (08:06)
[2022-01-18] MEDS: calcium carbonate 500 mg Chew Tablet 1000 MG PO (08:07)
[2022-01-18] MEDS: chlorhexidine gluconate 0.12% Btl 473 mL 30 ML MUCOUS MEM (08:17)
[2022-01-18] MEDS: mupirocin oint 22 gm 1 APPLIC NASAL (08:21)
--- NOTE | 2022-01-18 18:20 | PM.DCS ---
Discharge Providers Date of Admission: 01/17/22 14:09 Date of Discharge: January 18, 2022 Attending Provider at Admission: Carri Leslie MD Attending Provider at Discharge: Carri Leslie MD Primary Care Provider: Mil Veronica MD Diagnoses at Discharge Discharge Diagnosis (1) Status post total left knee replacement not using cement: Status: Acute Permanent problem details: Date of procedure: January 17, 2022 Diagnosis: Primary osteoarthritis left knee Post-op findings: Significant bone discoloration with bone being sent to pathology. Procedure done: Left total knee arthroplasty Implants: The [place] total knee system with a size 5 triathlon beaded posterior stabilized femur left, a triathlon titanium tibial component size 5 beaded, a triathlon X3 posterior stabilized tibial bearing insert size 5 X 1 mm and a beaded triathlon titanium asymmetric patella size 35 x 10 mm (2) Primary osteoarthritis of left knee: Status: Acute Reason for Visit Reason for Visit: Brief History: This 81-year-old gentleman presented to my office with severe complaints of bilateral knee pain.? At the time, he noted that his left was worse than his right.? He uses a walker for ambulation. Patient previously received a Monovisc injection in the right knee by Dr. Leslie 09/01/19. He states the injections provided comfort for a maximum of a week. He states his bilateral knee pain has been on going for several years. He states he previously had 3 surgeries on his right knee, and one surgery on his left knee. He complains of more pain when he is walking and standing. He complains of his left knee giving out while he is walking, causing him to fall.? Both knees cause him significant difficulties in his activities of daily living.? After discussion, the patient wished to proceed with left total knee arthroplasty.? Risks and complications were discussed with him.? Consents were signed.? Questions were answered at the time of the office visit. Hospital Course Hospital Course Patient was admitted to the floor following same-day surgery for left total knee arthroplasty. He tolerated the procedure well and was brought into the hospital under observation status. Postoperatively, the patient worked with physical therapy and did well. He was felt to be safe to be discharged home. His dressing was removed down to the OpSite. He was neurologically intact. There was minimal swelling. There was no significant ecchymosis. There was no drainage. There was no evidence of DVT. The patient was felt to be appropriate for discharge to home with home health. Plans were made for this, and the patient was discharged on the first postoperative day. Physical Exam Const: COMMON NORMALS: no acute distress, average body habitus, patient oriented x3 and alert GENERAL APPEARANCE: cooperative and comfortable ORIENTATION/CONSCIOUSNESS: Yes awake HENMT: COMMON NORMALS: normocephalic and atraumatic HEAD & SCALP: normocephalic and atraumatic Eye: GENERAL EYE: appearance normal, both eyes and all related structures Chest: COMMONS NORMALS: normal inspection of the chest Resp: COMMON NORMALS: normal respiratory effort EFFORT & INSPECTION: Yes able to speak in complete sentences and Yes symmetric chest movement Extremity: LEFT LOWER EXTREMITY: Yes knee joint (Dressing removed down to the OpSite.) Left knee: Yes inspection (No ecchymosis or significant swelling.), Yes palpation (Minimal tenderness.), Yes ROM (Not evaluated.) and Yes neurovascular exam (Intact with no evidence of DVT.) Neuro: COMMON NORMALS: patient oriented x3 SENSORIUM/ORIENTATION: Yes alert Psych: COMMON NORMALS: mental status grossly normal APPEARANCE: Yes grossly normal ATTITUDE: Yes calm and Yes engaged ATTENTION/CONCENTRATION: Yes attention grossly intact Skin: COMMON NORMALS: no rashes or lesions noted GENERAL SKIN EXAM: no rashes or lesions noted Urinary Catheter Management: Weiner: Cath Placed During This Visit: yes, but has since been removed by the nurse Reason for Continuing Indwelling Catheter: Decision to DC Catheter Urinary Catheter Date of Insertion: 01/17/22 Urinary Catheter Time of Insertion: 07:20 Date Urinary Catheter Removed: 01/18/22 Time Urinary Catheter Discontinued: 04:56 Discharge Data Studies Completed and Pending Completed Studies During Hospitalization Category Date Time Status XR knee LT 1-2V 57861 Routine Exams 01/17/22 Completed XR knee RT 1-2V 98682 Urgent Exams 01/17/22 10:37 Completed Pending at discharge Category Date Time Status Tissue Culture and Gram Stain Routine Lab 01/17/22 08:13 Results Pathology: Surgical [PTH] Routine Pth 01/17/22 10:20 Received Radiology Impressions Knee X-Ray 01/17/22 10:37 IMPRESSION: 1. Total knee replacement in excellent position. Laboratory Results WBC 12.2 10^3/uL (4.0-10.0) H 01/18/22 02:40 RBC 4.38 10^6/uL (4.1-5.3) 01/18/22 02:40 Hgb 12.9 g/dL (11.7-16.6) 01/18/22 02:40 Hct 38.7 % (42.0-52.0) L 01/18/22 02:40 MCV 88.4 fl (80-94) 01/18/22 02:40 MCH 29.5 pg (28.0-34.0) 01/18/22 02:40 MCHC 33.3 g/dL (30.0-36.0) 01/18/22 02:40 RDW 14.3 % (12.1-15.1) 01/18/22 02:40 Plt Count 157 10^3/cmm (130-400) 01/18/22 02:40 MPV 11.5 fL (7.4-10.4) H 01/18/22 02:40 Neut % (Auto) 83.7 % 01/18/22 02:40 Lymph % (Auto) 6.2 % 01/18/22 02:40 Guadalupe % (Auto) 9.3 % 01/18/22 02:40 Eos % (Auto) 0.1 % 01/18/22 02:40 Baso % (Auto) 0.3 % 01/18/22 02:40 Neut # (Auto) 10.22 10^3/uL (1.8-7.7) H 01/18/22 02:40 Lymph # (Auto) 0.8 10^3/uL (0.8-4.8) 01/18/22 02:40 Guadalupe # (Auto) 1.1 10^3/uL (0.2-0.9) H 01/18/22 02:40 Eos # (Auto) 0.0 10^3/uL (0.0-0.8) 01/18/22 02:40 Baso # (Auto) 0.0 10^3/uL (0.0-0.1) 01/18/22 02:40 Nucleated RBC % (auto) 0 % 01/18/22 02:40 Nucleated RBCs # 0.0 /100WBC 01/18/22 02:40 Sodium 136 mmol/L (136-145) 01/18/22 02:40 Potassium 5.1 mmol/L (3.5-5.1) 01/18/22 02:40 Chloride 104 mmol/L (98-107) 01/18/22 02:40 Carbon Dioxide 18 mmol/L (22-29) L 01/18/22 02:40 Anion Gap 19.1 (5-19) H 01/18/22 02:40 BUN 20 mg/dL (8-23) 01/18/22 02:40 Creatinine 1.0 mg/dL (0.7-1.2) 01/18/22 02:40 GFR Calculation Not Reportable 01/18/22 02:40 Glucose 172 mg/dL (65-115) H 01/18/22 02:40 POC Glucose 154 mg/dL (70-110) H 01/17/22 06:29 Calculated Osmolality 289 mOsm/kg (285-295) 01/18/22 02:40 Calcium 9.2 mg/dL (8.5-10.5) 01/18/22 02:40 Total Bilirubin 0.3 mg/dL (0.15-1.2) 01/12/22 10:20 AST 15 U/L (0-40) 01/12/22 10:20 ALT 19 U/L (0-41) 01/12/22 10:20 Alkaline Phosphatase 77 IU/L (40-130) 01/12/22 10:20 Total Protein 6.7 g/dL (6.6-8.7) 01/12/22 10:20 Albumin 4.4 g/dL (3.5-5.2) 01/12/22 10:20 Globulin 2.3 g/dL (1.3-4.6) 01/12/22 10:20 Urine Color Yellow (Yellow) 01/12/22 09:40 Urine Appearance Clear (CLEAR) 01/12/22 09:40 Urine pH 5 (5-7) 01/12/22 09:40 Ur Specific [place] 1.025 (1.005-1.030) 01/12/22 09:40 Urine Protein Neg (Negative) 01/12/22 09:40 Urine Glucose (UA) Norm (Normal) 01/12/22 09:40 Urine Ketones Negative (Negative) 01/12/22 09:40 Urine Blood Neg (Negative) 01/12/22 09:40 Urine Nitrate Negative (Negative) 01/12/22 09:40 Urine Bilirubin Neg (Negative) 01/12/22 09:40 Urine Urobilinogen Norm mg/dL (Negative) 01/12/22 09:40 Ur Leukocyte Esterase Negative (Negative) 01/12/22 09:40 Vitals Last Vital Signs Temp 97.4 F L 01/18/22 12:00 Pulse 81 01/18/22 12:00 Resp 18 01/18/22 12:55 BP 162/83 01/18/22 12:00 Pulse Ox 95 01/18/22 12:00 Discharge Plan Discharge Patient Disposition: Home Health Service Condition: Stable Prescriptions: New celecoxib 200 mg Capsule 200 mg PO DAILY 30 Days Qty: 30 0RF aspirin 325 mg Tablet,Delayed Release (Dr/Ec) 325 mg PO DAILY 30 Days Qty: 30 0RF oxycodone 5 mg Tablet 5 mg PO Q4H PRN (Reason: Moderate Pain) 7 Days Qty: 30 0RF Continued Anoro Ellipta 62.5-25 mcg/actuation blister with device 1 inh INHALATION Q24H 0RF metformin 500 mg tablet 500 mg PO BID 0RF Lumigan 0.01 % drops 1 drop ophthalmic (eye) DAILY 0RF pravastatin 40 mg tablet 40 mg PO DAILY 0RF Multivitamin 50 Plus Tablet 1 tab PO DAILY 0RF PreserVision AREDS 7,160 unit- 113 mg-100 unit Tablet 2 tab PO BID 0RF gabapentin 300 mg capsule 300 mg PO QID 0RF spironolactone 25 mg Tablet 25 mg PO DAILY 0RF lisinopril 30 mg Tablet 30 mg PO DAILY 0RF metoprolol tartrate 25 mg tablet 25 mg PO DAILY 0RF Held acetaminophen [Tylenol] 325 mg Tablet 325 mg PO QID PRN (Reason: Pain) 0RF Hold Instructions: Resume on 02/15/22. Resume after completing your greater strength of Tylenol. Discharge Orders: Discharge Order (Routine); Ordered 01/18/22 Ordered By: Carri Leslie Other Ambulatory Orders: DME: Juan M (Order) Location: None Selected Ordered By: Carri Leslie Referrals: [facility] ([facility]) [Outside] Carri Leslie MD [Physician] - 02/01/22 9:00 am (Your initial appointment will be with Rosales Rodas, nurse practitioner. Subsequent appointment with me will be on March 08, 2022 at 9:45 AM.) Discharge Diet: Advance as tolerated and Usual diet Discharge Activity: Increase activity as tolerated, Limit activity as instructed and Use walker/crutches as instructed Patient Instructions: Aspirin (By mouth), Oxycodone, Rapid Release (By mouth), Celecoxib (By mouth), Knee Replacement (GEN), Joint Replacement Stoplight, Opioid Safety Activity Restrictions/Additional Instructions: Weightbearing as tolerated. Work with physical therapy for range of motion, gait training, and strengthening. Elevate and ice right lower extremity. You may shower, but do not soak wound in water. Discharge Attestations Time Spent in Discharge Care*: greater than 30 min Specific Discharge Activities: educating patient, documenting/other paperwork and evaluating patient/reviewing data Status at Discharge: Cognitive status at discharge: cognitively intact, Behavioral status at discharge: cooperative, Quality Metrics Clinical Quality Measures [ No reported AMI, CVA or VTE this stay] Coding Level of Care Code Acute [facility] note Diagnoses Status post total left knee replacement not using cement Z96.652 Primary osteoarthritis of left knee M17.12
== END 2022-01-18 15:31 | disposition home health service (06) ==
LOC: MEDSURG 14:15
PROVIDERS: Admitting Provider Specialist; PCP Family Medicine; Visit Provider Specialist
PROC: (CPT 27447; principal; 2022-01-17 07:00)
DX: M17.12 Unilateral primary osteoarthritis, left knee (principal); J44.9 Chronic obstructive pulmonary disease, unspecified; I48.91 Unspecified atrial fibrillation; I10 Essential (primary) hypertension; E11.40 Type 2 diabetes mellitus with diabetic neuropathy, unspecified; Z79.84 Long term (current) use of oral hypoglycemic drugs; Z87.891 Personal history of nicotine dependence
CPT/HCPCS: 27447; 36415; 36416; 51702; 64447; 73560; 76942; 80048; 80053; 81003; 82962; 85025; 87070; 87176; 87205; 88304; 88307; 88311; 93005; 97110; 97116; 97161; 97165; 97530; 97535; C1776; C9290; G0378; J0690; J2250; J2704; J2795; J3010; J3370; J3490; J7030

== ENCOUNTER 2022-01-22 14:43 | Emergency (ER) | payer MEDICARE, OTHER, SELFPAY ==
[2022-01-22 15:47] VITALS: BP 169/79; PULSE 97; RESP 18; TEMP 37.2; O2SAT 95
--- NOTE | 2022-01-22 16:36 | XRR_ITS ---
PROCEDURE INFORMATION: Exam: XR Left Knee Exam date and time: 01/22/2022 5:32 PM Age: 81 years old Clinical indication: Pain; Knee; Left; Prior surgery; Surgery date: 3-7 days post-operative; Additional info: Post op pain TECHNIQUE: Imaging protocol: Radiologic exam of the Left knee. Views: 1 or 2 views. COMPARISON: No relevant prior studies available. FINDINGS: Bones/joints: There is an intact and well aligned total knee prosthesis. There is no acute fracture. Soft tissues: Soft tissue edema and skin kwasi noted. XR/XR knee LT 1-2V 62585 IMPRESSION: Expected postoperative findings in the knee.
[2022-01-22 19:20] VITALS: BP 162/98; PULSE 95; RESP 18; TEMP 37.2; O2SAT 95
--- NOTE | 2022-01-22 19:38 | USR_ITS ---
PROCEDURE INFORMATION: Exam: US Duplex Left Lower Extremity Veins, Limited Exam date and time: 01/22/2022 7:58 PM Age: 81 years old Clinical indication: Pain; Leg, lower; Left; Prior surgery; Surgery date: 3-7 days post-operative; Surgery type: Knee surgery; Additional info: Left leg swelling-post op TECHNIQUE: Imaging protocol: Real-time Duplex ultrasound of the Left Lower Extremity with 2-D kolb scale, color Doppler flow and spectral waveform analysis with image documentation. Limited exam focused on the left lower extremity veins. COMPARISON: CR (LOW EXM, ) 01/22/2022 5:32 PM FINDINGS: Left deep veins: Unremarkable. The common femoral, femoral, proximal profunda femoral and popliteal veins are patent without thrombus. Normal Doppler waveforms. Normal compressibility and/or augmentation response. Left superficial veins: Unremarkable. Saphenofemoral junction is patent without thrombus. Soft tissues: Unremarkable. US/CV venous duplex [facility] [id number] IMPRESSION: No evidence of deep vein thrombosis.
--- NOTE | 2022-01-22 19:39 | ED_ITS ---
HPI - Extremity Problem General: Chief complaint: Extremity Problem,Nontraumatic Stated complaint: LEFT KNEE PAIN S/P SURGERY Time Seen by Provider: 01/22/22 19:37 History of Present Illness: Patient is an 81-year-old male comes to the ED with left lower leg pain. Patient had left total knee arthroplasty done on 5 days ago onJanuary 17, 2022. He endorses having increased left leg pain and swelling. Last 2 days his pain on left leg has been worse and he has been unable to bear any weight on left leg due to pain. He has been taking prescribed oxycodone to help with pain since surgery. He has had some clear and a little bit of bloody drainage from surgical incision site as well. He endorses having left calf pain along with left lower leg edema that has caused some weeping clear drainage with small sores. Denies any fevers, chest pain, shortness of breath, hemoptysis. Patient is not currently on a blood thinner. Associated symptoms: Deny chest pain, fever(s) or rash Review of Systems Const: Denies: fever(s), chills or fatigue Eyes: Denies: change in vision or eye discomfort ENMT: Denies: throat pain, odynophagia, nasal discharge or nasal congestion Card: Denies: chest pain, palpitations, edema, swelling of feet/ankles, dyspnea on exertion or orthopnea Resp: Denies: dyspnea, productive cough or non-productive cough GI: Denies: abdominal pain, nausea, vomiting, diarrhea, constipation or hematochezia : Denies: flank pain, difficulty urinating, dysuria or hematuria Musc: Reports: extremity pain (Left knee and left lower leg) and extremity s welling (Left lower leg); Denies: neck pain or back pain Skin/Breast: Denies: rash or new lesions Neuro: Denies: headache(s), numbness in extremities or weakness in extremities PFSH ED PFSH: Medical History Atrial fibrillation COPD (chronic obstructive pulmonary disease) Diabetes mellitus Type 2 Encounter for pre-operative cardiovascular clearance Hypertension Left lumbar radiculopathy Neuropathy, idiopathic Primary osteoarthritis of right knee Spondylolisthesis at L4-L5 level Surgical History History of AAA (abdominal aortic aneurysm) repair Hx of cholecystectomy Hx of eye surgery right S/P right knee arthroscopy twice by Status post lumbar spinal fusion Encouraged him to continue walking program to be cautious with bending lifting or twisting. We will see him back in the office in 1 week's time. Continue refraining from any bending lifting or twisting. We will discontinue the Hemovac drain. Family History Denies family history of Diabetes CAD (coronary artery disease) Clotting disorder Dementia Hyperlipidemia Psychiatric illness Chronic kidney disease (CKD) Suicide Anesthesia complication Bleeding disorder Family history of premature coronary artery disease Lung disease Cancer Hypertension Stroke Social History Smoking and tobacco status: former smoker Quit status (tobacco): has quit using tobacco Year quit tobacco: 3 years ago;2017 Alcohol intake: never Physical Exam Const: COMMON NORMALS: patient oriented x3 and alert GENERAL APPEARANCE: cooperative HENMT: COMMON NORMALS: normocephalic HEAD & SCALP: normocephalic MOUTH: Normal oral and palatal mucosa present THROAT: posterior oropharynx normal and uvula midline Neck/C-Spine: COMMON NORMALS: supple GENERAL: Yes normal visual inspection Resp: COMMON NORMALS: normal respiratory effort, No retractions, No use of accessory muscles and clear to auscultation bilaterally AUSCULTATION: clear to auscultation bilaterally Cardio: COMMON NORMALS: regular rate, regular rhythm, S1 normal heart sound present, S2 normal heart sound present, No gallops present (Cardio), No clicks present (Cardio), No murmurs present (Cardio) and Peripheral pulses 2+ throughout RATE: regular rate RHYTHM: regular rhythm HEART SOUNDS: S1 normal heart sound present and S2 normal heart sound present PERIPHERAL PULSES: Peripheral pulses 2+ throughout GI: COMMON NORMALS: Normal to inspection, nondistended, normoactive bowel sounds present, Soft to palpation, non-tender and no masses PALPATION: Yes Soft to palpation : COMMON NORMALS: Yes no CVA tenderness BLADDER/KIDNEY EXAM: Yes no CVA tenderness Back/Pelvis: COMMON NORMALS: no CVA tenderness Extremity: NARRATIVE EXTREMITY EXAM: Left knee surgical site appears to be healing well. No erythema, warmth or purulent drainage noted. Lower left leg just below surgical site had erythema warmth and extensive edema that was 2+ pitting. Tender to palpation as well. Skin is weeping clear fluid. GENERAL: Yes calf tenderness (Left calf tenderness) and Yes edema (2+ pitting edema in left lower leg with some weeping noted) Neuro: COMMON NORMALS: patient oriented x3 and moves all extremities SENSORIUM/ORIENTATION: Yes alert Skin: GENERAL SKIN EXAM: dry skin Course Vital Signs: Vital signs: Vital Signs Temperature 98.9 F 01/22/22 21:48 Pulse Rate 90 01/22/22 21:48 Respiratory Rate 18 01/22/22 21:48 Blood Pressure 159/81 01/22/22 21:48 Pulse Oximetry 97 01/22/22 21:48 MDM - Extremity (Nontraumatic) Medical Decision Making Patient is an 81-year-old male comes to the ED with left lower leg pain. Patient had left total knee arthroplasty done on 5 days ago on January 17, 2022. He endorses having increased left leg pain and swelling. He denies any chest pain, shortness of breath, hemoptysis. Vitals are stable. Left knee surgical site appears to be healing well no erythema warmth or purulent drainage noted. Lower left leg just below surgical site had erythema warmth and extensive edema that was 2+ pitting. Left calf tenderness. Tender to palpation as well. Skin is weeping clear fluid. Findings suggestive of lower extremity edema likely post surgery and there could be some potential cellulitis that setting in due to extensive edema. Once again surgical site looks like it is healing normally and no signs of cellulitis noted there. The x-ray showed expected postoperative findings. Ultrasound venous duplex of left lower extremity showed no DVT or blood clots seen. Patient was stable for discharge home and diagnosed with leg edema status post total knee replacement. He was given a dose of cephalexin here in the ED and sent home with a prescription for cephalexin for for the likely start of cellulitis due to his edema. Return ED precautions given. Fo llow-up with PCP 5 to 7 days and Ortho at your next scheduled postop checkup. Patient understood and agreed with plan. Lab Data Radiology Impressions Knee X-Ray 01/22/22 16:36 IMPRESSION: Expected postoperative findings in the knee. Venous Duplex 01/22/22 19:38 IMPRESSION: No evidence of deep vein thrombosis. Discharge Plan Discharge Patient Disposition: Home Clinical Impression: Edema of left lower extremity Status post total knee replacement Qualifiers: Laterality: left Qualified Code(s): Z96.652 - Presence of left artificial knee joint Condition: Stable Prescriptions: New cephalexin 500 mg capsule 500 mg PO Q6H 7 Days Qty: 28 0RF No Action Anoro Ellipta 62.5-25 mcg/actuation blister with device 1 inh INHALATION Q24H 0RF metformin 500 mg tablet 500 mg PO BID 0RF Lumigan 0.01 % drops 1 drop ophthalmic (eye) DAILY 0RF acetaminophen [Tylenol] 325 mg Tablet 325 mg PO QID PRN (Reason: Pain) 0RF Hold Instructions: Resume on 02/15/22. Resume after completing your greater strength of Tylenol. pravastatin 40 mg tablet 40 mg PO DAILY 0RF Multivitamin 50 Plus Tablet 1 tab PO DAILY 0RF PreserVision AREDS 7,160 unit- 113 mg-100 unit Tablet 2 tab PO BID 0RF gabapentin 300 mg capsule 300 mg PO QID 0RF spironolactone 25 mg Tablet 25 mg PO DAILY 0RF lisinopril 30 mg Tablet 30 mg PO DAILY 0RF metoprolol tartrate 25 mg tablet 25 mg PO DAILY 0RF celecoxib 200 mg Capsule 200 mg PO DAILY 30 Days Qty: 30 0RF aspirin 325 mg Tablet,Delayed Release (Dr/Ec) 325 mg PO DAILY 30 Days Qty: 30 0RF oxycodone 5 mg Tablet 5 mg PO Q4H PRN (Reason: Moderate Pain) 7 Days Qty: 30 0RF Discharge Orders: Discharge ED (Routine); Ordered 01/22/22 Ordered By: Davie Veronica Referrals: Mil Veronica MD [Primary Care Provider] - Discharge Diet: Regular Discharge Activity: Increase activity as tolerated Patient Instructions: Edema (ED) Activity Restrictions/Additional Instructions: Follow-up with medical provider as directed. Contact Dr. Armstrong's office tomorrow to let her know about your left leg swelling and you were seen at the emergency department and were negative for DVT. Take medication as prescribed. Elevate left leg to help with swelling. You can Hood wrap your left lower leg to provide some pressure to help with swelling as well. Continue taking all other home meds as previously prescribed. Return to the ER or your medical provider if condition worsens. Please read and understand discharge instructions. Thank you for choosing [facility] for your healthcare needs today. Please realize this is an emergency room and that we are providing you with a medical screening exam and this may not be complete and all inclusive of all the testing and or work up that you may need to determine your ailment or severity of your illness. It is very important that you follow up as instructed or that you return to the Emergency Department should you have concerns or if your condition changes or worsens in any way. Coding Level of Care Code ED Audio Visual Facilities Engineer for [employer] Exam Comprehensive
[2022-01-22] MEDS: oxyCODONE-APAP 5-325 mg Tablet 1 TAB PO (19:49)
[2022-01-22 20:50] VITALS: BP 157/88; PULSE 91; RESP 18; TEMP 37.2; O2SAT 96
[2022-01-22] MEDS: cephALEXin 500 mg Capsule PO (21:44)
[2022-01-22 21:48] VITALS: BP 159/81; PULSE 90; RESP 18; TEMP 37.2; O2SAT 97
== END 2022-01-22 21:54 | disposition home or self-care (01) ==
PROVIDERS: Emergency Provider Physician Assistant; PCP Family Medicine
DX: R60.0 Localized edema (principal); Z96.652 Presence of left artificial knee joint; Z79.84 Long term (current) use of oral hypoglycemic drugs; Z79.82 Long term (current) use of aspirin; J44.9 Chronic obstructive pulmonary disease, unspecified; E11.9 Type 2 diabetes mellitus without complications; I10 Essential (primary) hypertension; Z87.891 Personal history of nicotine dependence
CPT/HCPCS: 73560; 93971; 99283

== ENCOUNTER → 2022-02-01 08:29 | Outpatient (BNVA) | payer MEDICARE, OTHER, SELFPAY | PROVIDERS: PCP Family Medicine; Visit Provider Nurse Practitioner Family | DX: Z96.652 Presence of left artificial knee joint (principal) | CPT/HCPCS: 73560; 73565; 99024 ==

== ENCOUNTER → 2022-03-08 09:42 | Outpatient (BNVA) | payer MEDICARE, OTHER, SELFPAY | PROVIDERS: PCP Family Medicine; Visit Provider Specialist | DX: Z96.652 Presence of left artificial knee joint (principal); M17.11 Unilateral primary osteoarthritis, right knee | CPT/HCPCS: 73560; 73565; 99214 ==

== ENCOUNTER 2022-03-21 10:42 | Observation (INO) | payer MEDICARE, OTHER, SELFPAY ==
[2022-03-14 13:02] VITALS: BMI 29.7
--- NOTE | 2022-03-14 13:26 | ANES.PREANE2 ---
Pre-Anesthetic Assessment Height/Weight: Height 1.7 m Weight 86.183 kg Preop Diagnosis: Osteoarthritis right knee Operation Date: 03/21/22 07:00 Proposed Procedures p Right Total Knee Arthroplasty 84298,M17.11(Right) - Carri Leslie MD Familial anesthetic complications: none Social No alcohol and No tobacco Exam alert, oriented x 3, clear to auscultation bilaterally and regular rate & rhythm Airway Mallampati: Class III Dentition: full Pulmonary Chronic Obstructive Pulmonary Disease CV/HEM Atrial Fibrillation (happened after he broke 4 ribs - but now its gone and Dr. Veronica took him off his anticoagulation) 12/17 echo CONCLUSIONS ?Mild diffuse hypokinesia of the septum and the LV apex. ? Left ventricular ejection fraction around 49%. ?Minimally thickened mitral valve with a trace of mitral ?regurgitation. ?Thickened aortic valve. ?Trace tricuspid valve regurgitation. ?There is no pericardial effusion. ?There are no intracardiac masses. ?No previous similar studies? available for comparison. None reported Hepatic None reported GI None reported Metabolic Diabetes Mellitus (pre-DM) Musc/skel Lower Back Pain Neuropsych None reported Anesthetic Plan ASA status: 3 Anesthesia: Regional (specify below) (spinal + Adductor) Risk of > 500 ml blood loss (7ml/kg in children): No Medications/Allergies Home Medications Medication Instructions Recorded Confirmed Last Taken Type bimatoprost 0.01 % eye drops 1 drop ophthalmic (eye) DAILY 08/12/19 03/14/22 01/16/22 History (Lumigan) metformin 500 mg tablet 500 mg PO BID 08/12/19 03/14/22 01/16/22 History umeclidinium 62.5 mcg-vilanterol 1 inh inhalation Q24H 08/12/19 03/14/22 01/16/22 History 25 mcg/actuation powdr for inhalation (Anoro Ellipta) acetaminophen 325 mg tablet 325 mg PO QID PRN Pain 03/07/21 03/14/22 Unknown History (Tylenol) gabapentin 300 mg capsule 300 mg PO QID 03/07/21 03/14/22 01/16/22 History ehodtmgwutbx-kcufiijt-oybrxb 1 tab PO DAILY 03/07/21 03/14/22 01/16/22 History tablet (Multivitamin 50 Plus) pravastatin 40 mg tablet 40 mg PO DAILY 03/07/21 03/14/22 01/16/22 History vitamins A,C,B-aaxz-ntcgun 7,160 2 tab PO BID 03/07/21 03/14/22 01/16/22 History unit-113 mg-100 unit tablet (PreserVision AREDS) lisinopril 30 mg tablet 30 mg PO DAILY 05/14/21 03/14/22 01/16/22 History spironolactone 25 mg tablet 25 mg PO DAILY 05/14/21 03/14/22 01/16/22 History metoprolol tartrate 25 mg tablet 25 mg PO DAILY 01/12/22 03/14/22 01/17/22 05:00 History celecoxib 200 mg capsule 200 mg PO DAILY 90 days #90 caps 03/07/22 03/14/22 Unknown Rx Allergies Allergy/AdvReac Type Severity Reaction Status Date / Time No Known Allergies Allergy Verified 03/08/22 07:07 [facility] Anesthesia Medical History Atrial fibrillation COPD (chronic obstructive pulmonary disease) Diabetes mellitus Type 2 Encounter for pre-operative cardiovascular clearance Hypertension Left lumbar radiculopathy Neuropathy, idiopathic Primary osteoarthritis of right knee Spondylolisthesis at L4-L5 level Surgical History (Updated 03/14/22 @ 13:00 by Guillermina Mauricio) History of AAA (abdominal aortic aneurysm) repair Hx of cholecystectomy Hx of eye surgery right S/P right knee arthroscopy twice by Status post lumbar spinal fusion Encouraged him to continue walking program to be cautious with bending lifting or twisting. We will see him back in the office in 1 week's time. Continue refraining from any bending lifting or twisting. We will discontinue the Hemovac drain. Family History Denies family history of Diabetes CAD (coronary artery disease) Clotting disorder Dementia Hyperlipidemia Psychiatric illness Chronic kidney disease (CKD) Suicide Anesthesia complication Bleeding disorder Family history of premature coronary artery disease Lung disease Cancer Hypertension Stroke Social History Smoking and tobacco status: former smoker Quit status (tobacco): has quit using tobacco Year quit tobacco: 3 years ago;2017 Alcohol intake: never Data Anesthesia Cardiac Studies: Echocardiogram 03/11/21
[2022-03-14 14:19] LABS: Add Urine Microscopic? NO; Charge for UA Resulting for Rev
[2022-03-14 14:24] LABS: Basophils # 0.1 10^3/uL (0.0-0.1); Basophils % 0.9 %; Eosinophils # 0.7 10^3/uL (0.0-0.8); Eosinophils % 8.9 %; Hematocrit 40.6 % (42.0-52.0); Hemoglobin 12.8 g/dL (11.7-16.6); Lymphocytes # 1.8 10^3/uL (0.8-4.8); Lymphocytes % 23.1 %; Mean Corpuscular HGB Conc 31.5 g/dL (30.0-36.0); Mean Corpuscular Hemoglobin 28.9 pg (28.0-34.0); Mean Corpuscular Volume 91.6 fl (80-94); Mean Platelet Volume 11.3 fL (7.4-10.4); Monocytes # 0.7 10^3/uL (0.2-0.9); Monocytes % 8.8 %; Neutrophils # 4.44 10^3/uL (1.8-7.7); Nucleated Red Blood Cells % 0 %; Platelet Count 156 10^3/cmm (130-400); Red Blood Count 4.43 10^6/uL (4.1-5.3); Red Cell Distribution Width 13.7 % (12.1-15.1); White Blood Count 7.7 10^3/uL (4.0-10.0)
[2022-03-14 14:28] LABS: Bilirubin Urine Neg (Negative); Blood Urine Neg (Negative); Glucose Urine UA Norm (Normal); Ketones Urine Negative (Negative); Leukocyte Esterase Urine Negative (Negative); Nitrate Urine Negative (Negative); Protein Urine Neg (Negative); Urine Appearance Clear (CLEAR); Urine Color Yellow (Yellow); Urobilinogen Urine Norm (Negative); pH Urine 5 (5-7)
[2022-03-14 14:57] LABS: Alanine Aminotransferase 12 U/L (0-41); Albumin Level 3.9 g/dL (3.5-5.2); Alkaline Phosphatase 88 U/L (40-130); Anion Gap 16.3 (5-19); Aspartate Amino Transferase 11 U/L (0-40); Blood Urea Nitrogen 22 mg/dL (8-23); Calcium 9.1 mg/dL (8.5-10.5); Carbon Dioxide 20 mmol/L (22-29); Chloride 111 mmol/L (98-107); Globulin 2.3 g/dL (1.3-4.6); Glucose 87 mg/dL (65-115); Osmolality Calculated 297 mOsm/kg (285-295); Potassium 5.3 mmol/L (3.5-5.1); Sodium 142 mmol/L (136-145); Total Bilirubin 0.2 mg/dL (0.15-1.2); Total Protein 6.2 g/dL (6.6-8.7)
[2022-03-21] VITALS (17 sets, daily range): BP systolic 93–148; BP diastolic 56–79; PULSE 58–80; RESP 14–20; TEMP 36.3–36.7; O2SAT 92–97; BMI 31.6
[2022-03-21] MEDS: sodium chloride 0.9% 1,000 ML 30 ML IV (06:05)
[2022-03-21 06:06] LABS: Glucose Point of Care 125 mg/dL (70-110)
[2022-03-21] MEDS: acetaminophen 1,000 MG/100 ML PIGGYBACK 400 MG IV ×3 (06:15→21:01)
--- NOTE | 2022-03-21 06:15 | P.ANESUD_ITS ---
Pre-Anesthetic Update Pre-Anesthetic Assessment: Date of Surgery/Procedure: 03/21/22 Preop Rupal gnosis: Left Total Knee Arthroplasty Proposed Procedure: Operation Date: 03/21/22 07:00 Proposed Procedures p Right Total Knee Arthroplasty 21720,M17.11(Right) - Carri Leslie MD Any changes to Pre-Anesthetic Assessment?: No Last Intake: Intake Last Liquid Date 03/20/22 Last Liquid Time 22:00 Last Solid Date 03/20/22 Last Solid Time 18:00 Vitals: Temperature 98 F 03/21/22 05:54 Temperature Source Temporal Artery S can 03/21/22 05:54 Pulse Rate 74 03/21/22 05:54 Respiratory Rate 16 03/21/22 05:54 Blood Pressure 148/79 03/21/22 05:54 Blood Pressure Katerin n 102 03/21/22 05:54 Pulse Oximetry 96 03/21/22 05:54 Oxygen Delivery Me thod 03/21/22 05:54 Exam: Pre-Anes Outpt Exam: alert, oriented x 3 and clear to auscultation bilaterally Additional Exam Findings (including area of procedure): Irregular rate, normal rhythm Cardiac Studies: Echocardiogram 03/11/21
--- NOTE | 2022-03-21 07:02 | P.HPUD_ITS ---
Surgery/Procedure H&P Update DATE OF PROCEDURE: March 21, 2022 DATE H&P PERFORMED: 03/08/22 H&P UPDATE INFORMATION: I have reviewed H&P completed within last 30 days, I have examined patient prior to procedure, No changes to prior documentation and H&P is in [facility] EMR on date indicated PREOP DIAGNOSIS: Right Total Knee Arthroplasty PLANNED PROCEDURE: Operation Date: 03/21/22 07:00 Proposed Procedures p Right Total Knee Arthroplasty 56663,M17.11(Right) - Carri Leslie MD Related Problem List Diagnoses (1) Primary osteoarthritis of right knee:
[2022-03-21] MEDS: ceFAZolin 2,000 MG in sodium chloride 0.9% (plus) 50 ML 100 MG IV ×3 (07:04→23:55)
--- NOTE | 2022-03-21 07:06 | ANES.PROC ---
Anesthesia Procedures Procedure/Date: 03/21/22 Nerve Block ^: Nerve Block 1: Main Anesthesia: spinal anesthesia block Time Out Performed: Yes Consent: requested by attending/covering physician, from patient and patient agrees to proceed Nerve block location: adductor canal Anesthesia monitors applied: pulse oximetry, EKG and BP cuff Nerve block position: semi sitting Anesthetic Used: ropivicaine 0.5% Amount of anesthesia used (mL): 20 Ultrasound used to: recognize landmarks and visualize and ID femerol nerve Nerve Stimulator Used?: No Interscalene/Femoral BLK: 4 stimuplex 21 g needle used for position and inplane approach, visualize local anesthetic spread and no vascular puncture identified Injection: neg aspiration of heme Patient Tolerated Procedure: well Complications: none Additional Comments: After time out sterile prep, using sterile technique, and using real time US guidance for target selection needle was inserted with real time visualization of needle entry and real time visualization of needle advancement toward intended target. Negative aspiration. LA injected incrementally with negative aspiration every 5 cc and real time US visualization of LA spread throughout procedure. Tolerated well. Image(s) saved.
[2022-03-21] MEDS: ceFAZolin 1,000 mg SDV 2000 MG IRRIGATION (08:12)
[2022-03-21] MEDS: vancomycin 1,000 MG SDV 1000 MG XX (08:12)
[2022-03-21] MEDS: tranexamic acid 1,000 mg/10mL SDV 1000 MG IV (09:08)
--- NOTE | 2022-03-21 10:18 | XRR_ITS ---
PROCEDURE INFORMATION: Exam: XR Right Knee Exam date and time: 03/21/2022 10:35 AM Age: 81 years old Clinical indication: Device placement; Joint replacement hardware; Prior surgery; Surgery date: Post-operative (0-2 days); Surgery type: Right total knee TECHNIQUE: Imaging protocol: Radiologic exam of the Right knee. Views: 3 views. Total images: 2 COMPARISON: CR XR knees AP WB w BI lmt ORTH 12/28/2021 8:59 AM FINDINGS: Tubes, catheters and devices: The prosthesis appears near anatomic in positioning. No parallel lucencies adjacent to the prosthesis are seen to suggest loosening. No acute fractures, subluxation, nor dislocation. Bones/joints: Right knee arthroplasty is present. Soft tissues: Subcutaneous emphysema is present from recent surgery. Vasculature: Moderate atherosclerotic disease is evident. XR/XR knee RT 3V* [id number] IMPRESSION: Status post recent right knee arthroplasty without complication.
--- NOTE | 2022-03-21 10:22 | PM.OP ---
Operative Report Date of procedure: March 21, 2022 Pre-op diagnosis: Right Total Knee Arthroplasty Post-op diagnosis: Right Total Knee Arthroplasty Post-op findings: Discoloration of bone with a grayish-brown staining and discoloration of the associated soft tissues. Also, significant varus deformity with dishing of the medial tibial plateau Procedure done: Right total knee arthroplasty Implants: The [place] total knee system with a size 5 triathlon beaded posterior stabilized femur right, a triathlon titanium tibial component size 5 beaded, a triathlon X3 posterior stabilized tibial bearing insert size 5 X 13 mm and a beaded triathlon titanium asymmetric patella size 35 x 10 mm Specimens removed/disposition: Synovium sent to pathology, probable ganglion cyst Pathology: other (See above) Surgeon: Carri Leslie Social Services Counselor: [facility] operating room technicians Anesthesia: MAC (With spinal anesthesia, ASA 3, adductor canal block) Estimated blood loss (mL): 50 Tourniquet time (min): 78 (At 250 mmHg) IV fluids (mL): 1,000 Urine output (mL): 300 Complications: None Findings: Significant discoloration of the bone with complete obliteration of cartilage and burnishing of the bone. Small ganglion cyst anterior sent to pathology. Condition: stable Disposition: PACU (Then to floor for postoperative rehabilitation and pain management) Brief History: This 81-year-old gentleman presented to my office with severe complaints of bilateral knee pain.? On January 17, 2022, he had a left total knee arthroplasty and he is doing very well following this procedure. He states his bilateral knee pain has been on going for several years. He states he previously had 3 surgeries on his right knee, and one surgery on his left knee. The patient's right knee is currently causing him significant difficulties in his activities of daily living.? After discussion, the patient wished to proceed with right total knee arthroplasty.? Risks and complications were discussed with him.? Consents were signed.? Questions were answered at the time of the office visit. Procedure: The patient was brought to the operating theater, and after undergoing adequate spinal anesthesia supplemented with adductor canal block and MAC, ASA 3, the right lower extremity was prepped with Dura-Prep and draped in usual fashion following placement of a tourniquet high on the leg. The leg was then draped free. Following prepping and draping, the leg was exsanguinated, and the tourniquet was elevated to 250 mmHg for a total tourniquet time of 78 minutes.? Prior to elevation of the tourniquet, but following exposure of the site of surgery, a surgical pause was performed. At the time of the surgical pause, we confirmed the site and side of surgery. Additionally, we confirmed the appropriate and timely administration of preoperative antibiotics, Ancef 2 g and Transexemic acid 1 g.? The availability of equipment was confirmed, and the patient's identity was verbalized as well.? An additional transexemic acid 1 g was given at the end of the surgical procedure as well. Following the surgical pause, an incision was made centering over the patella continuing proximally and distally as necessary to allow access to the knee joint. Dissection continued through skin and soft tissues using a scalpel. Hemostasis was obtained using electrocautery. The skin incision was followed by a median parapatellar arthrotomy. The leg was extended and the patella was everted. Following this, the leg was returned to flexed position.? The bone was noted to be significantly discolored.? There was varnishing and eburnation particular of the medial femoral condyle.? The discoloration was a brown to kolb.? It included the bone and soft tissues even the patellar tendon.? Specimens were sent to pathology including synovium and a ganglion cyst.? Distal femur was exposed, and a drill hole was made in this for placement of the distal femoral jig. The distal femoral jig was set at 5? of valgus. The distal femoral cutting block was then placed in appropriate position, and an maria alejandra wing was used to confirm an appropriate amount of distal femur would be resected.? The distal femoral resection was accomplished with 8 mm of bone being resected distally.? After the distal femoral resection was accomplished, the femur was measured, and it measured a size 5.? Medial lateral dimension also measured a size 5.? A size 5 femoral cutting block was placed in position, and we were then able to accomplish the anterior, posterior and chamfer cuts. This jig was then removed, and the notch guide was placed in position. With the notch guide in appropriate position, the notch was excised including resection of the anterior and posterior cruciate ligaments. This notch was to allow for the posterior stabilized femoral component. At this point, the femur was prepared and attention was directed to the proximal tibia.? The posterior knee retractor was placed along with medial and lateral retractors. Further resection of the menisci was accomplished as we had better visualization. A complete meniscectomy was performed both medially and laterally with care being taken to protect the popliteus. Retractors were then placed so that the proximal tibia was well visualized. A drill hole was then made in the tibia for placement of the intramedullary guide. This guide was placed so that approximately 2 mm of bone would be resected from the deficient medial tibial plateau. The intramedullary guide was utilized supplemented with an extramedullary guide to assure appropriate alignment for the proximal tibial resection. The proximal tibial jig was then evaluated, pinned in position, and the proximal tibial resection was accomplished without difficulty. Significant bone was removed from the lateral tibia. The jig was removed, and the proximal tibia was measured. It measured a size 5. We then attempted a trial reduction with a size 5 by 13 mm.? Osteophytes were also removed from the tibia, and a medial release was accomplished.? The femoral component was placed in position for the trial reduction, and the knee was placed through range of motion.? With this, there was appropriate patellar tracking. Extension was noted to be full as well.? With had excellent varus valgus alignment.? The knee was stable to varus valgus stress as well.? Therefore, this was the chosen component.? There was full extension and flexion without lift off and the rotation of the tibia was marked.? Alignment was checked from the hip to the ankle, and this was noted to be appropriate as well. Attention was then directed to the patella. The patella was measured with a caliper.? We resected sufficient patella to leave approximately 14 mm of patella remaining.? Measurements of the patella then indicated that a size asymmetric 35 mm x 10 mm was the appropriate patellar size. We then placed the jig to drill for the 3 pegs of the press-fit patella, and these drill holes were made without incident. A trial patella was then placed, and the knee was placed through range of motion. The patella was noted to track nicely without evidence of subluxation.? The femur was prepared for a press-fit femur by drilling 2 holes for the femoral pegs.? All trial components were subsequently removed. The tibial tray was then pinned into position, and we broached the tibia for the stem of the tibial component.? Subsequently, 4 drill holes were made for placement of the press-fit tibia.? This was accomplished without difficulty. Care was taken to assure appropriate rotation of the tibia as well as appropriate position on the proximal tibia. The tibial tray was completely seated on the proximal tibia. Following broaching, the tibial guide was removed, and all surfaces were copiously irrigated. The surfaces were then dried and a bone plug was placed into the distal femur.? Exparel was also subsequently injected. The Tritanium tibia was impacted into position.? The beaded femur was then impacted into position in a cementless fashion. The tibial insert was placed. The patella was pressed into position with a patellar clamp.? The knee was then copiously irrigated with betadine and saline and suctioned dry. Attention was then directed to closure. Closure was accomplished with 0 Vicryl in the fascial tissues.? Following this, a 2-0 Monocryl was used in the subcutaneous tissues, and the skin was closed with skin kwasi.? Care was taken to assure an excellent subcutaneous as well as skin closure.? A sterile dressing was then placed consisting of Dermabond Prineo, Telfa, OpSite, sterile soft roll including over the foot, and an Hood wrap. The patient was returned the Recovery Room in a satisfactory condition. X-rays were obtained and reviewed there.? The patient will be discharged to the floor for postoperative rehabilitation and pain management. Related Problem List Diagnoses (1) Primary osteoarthritis of right knee: (2) Status post total right knee replacement not using cement:
--- NOTE | 2022-03-21 10:41 | SUR.PHASEI ---
1015 PT TO PACU 5 PER BED, HOB FLAT, PT AWAKE ALERT TALKATIVE, PT HAD SPINAL ANESTHESIA, MONITOR SR WITH NO ECTOPY, VSS RT KNEE DRESSING D/I FIRST ICE TO SITE, DISTAL FOOT COOL PALE WITH DOPPLED PULSE STRONG AND REGULAR MARKED PT HAS BILAT FOOT PUMPS ON AND WORKING. IV TO LT WRIST #20 WITH NS 800ML AT MOD RATE PER GRAVITY, ID BAND TO LT WRIST PT ID'D WITH 2 IDENTIFIERS 1040 X RAY DONE, PT SURGICAL SITE UNCHANGED PULSE TO LT FOOT UNCHANGED CAP REFILL LESS THAN 3 SECONDS, VELAZCO TO DD WITH CLEAR YELLOW URINE TO TUBING AND BAG, NO URETHRAL TENSION NOTED STATLOCK TO LT INNER THIGH. PT DENIES PAIN SPINAL LEVEL BELOW T 12 PT ABLE TO BEND LT KNEE MOVES BILAT FEET STRONGLY TO COMMAND HOB AT 20 DEGREES.
--- NOTE | 2022-03-21 11:11 | SUR.PHASEI ---
PT TO FLOOR PER BED PT AWAKE ALERT, MOVES BILAT LEGS TO COMMAND STRONGLY, RT KNEE DRESSING D/I DISTAL FOOT PALE WARM WITH UNCHANGED PULSE AND CAP REFILL, HOB AT 30 DEGREES HANDOFF AT BEDSIDE WITH MOISÉS MENDOZA. FAMILY IN ROOM WITH PT.
[2022-03-21 12:16] LABS: Glucose Point of Care 91 mg/dL (70-110)
--- NOTE | 2022-03-21 12:32 | ANE.PACU2 ---
Inpatient post-anesthesia follow up: Airway intact: Yes Vital signs: Temperature 97.6 F Pulse Rate 62 Respiratory Rate 16 Blood Pressure 121/67 Pulse Oximetry 95 Oxygen Delivery Me thod Room Air Oxygen Flow Rate Fraction of Inspir ed Oxygen Hydration adequate: Yes Nausea and vomiting: No Pain level: 3 Mental status: Baseline
[2022-03-21] MEDS: gabapentin 300 mg Capsule PO ×3 (12:41→20:57)
[2022-03-21] MEDS: chlorhexidine gluconate 0.12% Btl 473 mL 30 ML MUCOUS MEM ×3 (12:42→20:57)
[2022-03-21] MEDS: oxyCODONE 5 mg IR Tab/Cap PO ×3 (12:44→23:38)
[2022-03-21] MEDS: calcium carbonate 500 mg Chew Tablet 1000 MG PO (17:40)
[2022-03-21] MEDS: iron polysaccharide complex 150 mg Capsule PO (17:41)
[2022-03-21] MEDS: sennosides-docusate Tablet 2 TAB PO (17:41)
[2022-03-21] MEDS: mupirocin oint 22 gm 1 APPLIC NASAL (17:42)
[2022-03-21] MEDS: metformin 500 mg Tablet PO (17:42)
[2022-03-21] MEDS: CELEcoxib 200 mg Capsule PO (20:57)
[2022-03-21] MEDS: metoprolol tartrate 25 mg Tablet PO (20:57)
--- NOTE | 2022-03-21 23:45 | PC.NURSE ---
Patient ambulated with the use of a walker to the bathroom and back to bed. Gait was steady. Patient did become very winded with activity and was having pain in the right knee. The patient was medicated for pain after returning to bed.
[2022-03-22 04:00] VITALS: BP 131/44; PULSE 70; RESP 16; RESP 18; TEMP 36.6; O2SAT 94; O2SAT 95
[2022-03-22] MEDS: oxyCODONE 5 mg IR Tab/Cap PO ×2 (04:00→08:45)
[2022-03-22 04:33] LABS: Basophils # 0.1 10^3/uL (0.0-0.1); Basophils % 0.5 %; Eosinophils # 0.1 10^3/uL (0.0-0.8); Eosinophils % 0.7 %; Hematocrit 35.9 % (42.0-52.0); Hemoglobin 11.5 g/dL (11.7-16.6); Lymphocytes # 1.2 10^3/uL (0.8-4.8); Lymphocytes % 9.7 %; Mean Corpuscular Hemoglobin 29.5 pg (28.0-34.0); Mean Corpuscular Volume 92.1 fl (80-94); Mean Platelet Volume 11.4 fL (7.4-10.4); Monocytes % 8.3 %; Neutrophils % 80.4 %; Nucleated Red Blood Cells % 0 %; Platelet Count 145 10^3/cmm (130-400); White Blood Count 12.2 10^3/uL (4.0-10.0)
[2022-03-22 05:12] LABS: Anion Gap 17.6 (5-19); Blood Urea Nitrogen 20 mg/dL (8-23); Calcium 8.8 mg/dL (8.5-10.5); Carbon Dioxide 19 mmol/L (22-29); Chloride 105 mmol/L (98-107); Glucose 127 mg/dL (65-115); Osmolality Calculated 286 mOsm/kg (285-295); Potassium 5.6 mmol/L (3.5-5.1); Sodium 136 mmol/L (136-145)
[2022-03-22] MEDS: acetaminophen 1,000 MG/100 ML PIGGYBACK 400 MG IV (05:30)
[2022-03-22] MEDS: ceFAZolin 2,000 MG in sodium chloride 0.9% (plus) 50 ML 100 MG IV (06:48)
[2022-03-22 07:48] VITALS: BP 130/68; PULSE 70; RESP 18; TEMP 36.6; O2SAT 93
[2022-03-22] MEDS: chlorhexidine gluconate 0.12% Btl 473 mL 30 ML MUCOUS MEM ×2 (08:43→12:22)
[2022-03-22] MEDS: cholecalciferol (vitamin D3) 1,000 unit Tablet 1000 UNIT PO (08:44)
[2022-03-22] MEDS: aspirin 325 mg EC Tablet PO (08:44)
[2022-03-22] MEDS: calcium carbonate 500 mg Chew Tablet 1000 MG PO (08:44)
[2022-03-22 08:45] VITALS: RESP 18; O2SAT 93
[2022-03-22] MEDS: metformin 500 mg Tablet PO (08:45)
[2022-03-22] MEDS: multivitamin therapeutic Tablet 1 TAB PO (08:45)
[2022-03-22] MEDS: sennosides-docusate Tablet 2 TAB PO (08:45)
[2022-03-22] MEDS: atorvastatin 40 mg Tablet 20 MG PO (08:46)
[2022-03-22] MEDS: lisinopril 10 mg Tablet 30 MG PO (08:46)
[2022-03-22] MEDS: gabapentin 300 mg Capsule PO ×2 (08:46→12:22)
[2022-03-22] MEDS: iron polysaccharide complex 150 mg Capsule PO (08:47)
[2022-03-22] MEDS: CELEcoxib 200 mg Capsule PO (08:47)
[2022-03-22] MEDS: spironolactone 25 mg Tablet PO (08:47)
[2022-03-22] MEDS: metoprolol tartrate 25 mg Tablet PO (08:52)
[2022-03-22] MEDS: mupirocin oint 22 gm 1 APPLIC NASAL (08:52)
[2022-03-22 11:21] VITALS: BP 107/63; PULSE 73; RESP 18; TEMP 36.8; O2SAT 91
[2022-03-22 12:10] LABS: Glucose Point of Care 204 mg/dL (70-110)
--- NOTE | 2022-03-22 13:05 | PC.CHAP ---
Pastoral Care Encounter/Spiritual Assessment Type of Contact [] Declined phlebotomy program coordinator visit [] Patient/Family/Request visit [] Outpatient visit [] Follow-up visit [] Physician referral [] Code/Alert [x] Routine visit [] Staff referral [] Actively dying [] Patient sleeping [x] Family support [] [] Out of room [] Palliative care [] [] Receiving care in room [] Pre-surgical visit [] Trauma [] Long length of stay [] ICU visit [x] Other: surgery.. prayed for healing and pain Relational/Emotional Strength [] Patient feels connected with others/family/visitors/staff [] Distress [] Loneliness/isolation [] Abandonment Spirituality of Patient [] Person of Saniya [] Attends Faith of their Saniya [] Believes in Prayer [] Reads Bible or Spiritism materials [] There are Spiritual issues to be addressed Digital Sales Representative Interventions [x] Prayer [] Active listening [] Non-anxious presence [] Spiritual/emotional support [] Crisis/trauma care [] Spiritual counseling [] Bereavement support [] Provided bereavement packet [] Provided Bible/devotional materials [] Provided toy/stuffed animal, coloring book to patient or family member [] Provided Communion [] Anointing/[facility] [] Salvation [x] Completed spiritual assessment [] Other: Impact on Illness or Injury [] Angry [] Fearful [] Anxious [] Often cries [] Exhaustion [] Unable to work [] Unable to attend taoist [] Unable to walk/stand [] Unable to read [] Unable to drive [] Unable to eat/drink [] Unable to sleep [] Unable to be with family [] Patient intubated [] Other: Summary Time spent with patient
--- NOTE | 2022-03-22 13:29 | PM.DCS ---
Discharge Providers Date of Admission: 03/21/22 10:42 Date of Discharge: March 22, 2022 Attending Provider at Admission: Carri Leslie MD Attending Provider at Discharge: Carri Leslie MD Primary Care Provider: Mil Veronica MD Diagnoses at Discharge Discharge Diagnosis (1) Primary osteoarthritis of right knee: Status: Acute (2) Status post total right knee replacement not using cement: Status: Acute Permanent problem details: Date of procedure: March 21, 2022 Diagnosis: Primary osteoarthritis right knee Post-op findings: Significant bone discoloration with bone being sent to pathology, significant varus deformity with bone loss. Procedure done: Right total knee arthroplasty Implants: The [place] total knee system with a size 5 triathlon beaded posterior stabilized femur right, a triathlon titanium tibial component size 5 beaded, a triathlon X3 posterior stabilized tibial bearing insert size 5 X 13 mm and a beaded triathlon titanium asymmetric patella size 35 x 10 mm Reason for Visit Reason for Visit: Brief History: This 81-year-old gentleman presented to my office with severe complaints of bilateral knee pain.? On January 17, 2022, he had a left total knee arthroplasty and he is doing very well following this procedure. He states his bilateral knee pain has been on going for several years. He states he previously had 3 surgeries on his right knee, and one surgery on his left knee.? The patient's right knee is currently causing him significant difficulties in his activities of daily living.? After discussion, the patient wished to proceed with right total knee arthroplasty.? Risks and complications were discussed with him.? Consents were signed.? Questions were answered at the time of the office visit. Hospital Course Hospital Course This gentleman was admitted for same-day surgery in the form of right total knee arthroplasty. He had previously knee arthroplasty and recovered nicely from it. Plans were made for his surgical intervention. This occurred uneventfully and the patient was kept in the hospital overnight for observation. Today, he has worked with physical therapy. He is comfortable in going home. Dressings are removed. His wound is benign. There is no evidence of DVT. There is no swelling. He denies any pain. He is neurologically intact. He will be discharged home to follow-up in the office as scheduled. Physical Exam Const: COMMON NORMALS: no acute distress, average body habitus, patient oriented x3 and alert GENERAL APPEARANCE: cooperative and comfortable ORIENTATION/CONSCIOUSNESS: Yes awake HENMT: COMMON NORMALS: normocephalic and atraumatic HEAD & SCALP: normocephalic and atraumatic Eye: GENERAL EYE: appearance normal, both eyes and all related structures Chest: COMMONS NORMALS: normal inspection of the chest Resp: COMMON NORMALS: normal respiratory effort EFFORT & INSPECTION: Yes able to speak in complete sentences and Yes symmetric chest movement Extremity: RIGHT LOWER EXTREMITY: Yes knee joint (Dressing is removed, minimal ecchymosis.) Right knee: Yes inspection (No significant swelling or evidence of DVT.), Yes palpation (Soft and nontender to palpation.), Yes ROM (Not evaluated but tolerating CPM.) and Yes neurovascular exam (Intact distally with no evidence of DVT.) Neuro: COMMON NORMALS: patient oriented x3 SENSORIUM/ORIENTATION: Yes alert Psych: COMMON NORMALS: mental status grossly normal APPEARANCE: Yes grossly normal ATTITUDE: Yes calm and Yes engaged ATTENTION/CONCENTRATION: Yes attention grossly intact Skin: COMMON NORMALS: no rashes or lesions noted GENERAL SKIN EXAM: no rashes or lesions noted Urinary Catheter Management: Weiner: Cath Placed During This Visit: yes, but has since been removed by the nurse Reason for Continuing Indwelling Catheter: Decision to DC Catheter Urinary Catheter Date of Insertion: 03/21/22 Urinary Catheter Time of Insertion: 07:20 Date Urinary Catheter Removed: 03/22/22 Time Urinary Catheter Discontinued: 06:00 Discharge Data Studies Completed and Pending Completed Studies During Hospitalization Category Date Time Status XR knee RT 3V* [id number] Urgent Exams 03/21/22 10:18 Completed Pending at discharge Category Date Time Status Pathology: Surgical [PTH] Routine Pth 03/21/22 10:17 Received Radiology Impressions Knee X-Ray 03/21/22 10:18 IMPRESSION: Status post recent right knee arthroplasty without complication. Laboratory Results WBC 12.2 10^3/uL (4.0-10.0) H 03/22/22 04:23 RBC 3.90 10^6/uL (4.1-5.3) L 03/22/22 04:23 Hgb 11.5 g/dL (11.7-16.6) L 03/22/22 04:23 Hct 35.9 % (42.0-52.0) L 03/22/22 04:23 MCV 92.1 fl (80-94) 03/22/22 04:23 MCH 29.5 pg (28.0-34.0) 03/22/22 04:23 MCHC 32.0 g/dL (30.0-36.0) 03/22/22 04:23 RDW 14.0 % (12.1-15.1) 03/22/22 04:23 Plt Count 145 10^3/cmm (130-400) 03/22/22 04:23 MPV 11.4 fL (7.4-10.4) H 03/22/22 04:23 Neut % (Auto) 80.4 % 03/22/22 04:23 Lymph % (Auto) 9.7 % 03/22/22 04:23 Sutter % (Auto) 8.3 % 03/22/22 04:23 Eos % (Auto) 0.7 % 03/22/22 04:23 Baso % (Auto) 0.5 % 03/22/22 04:23 Neut # (Auto) 9.80 10^3/uL (1.8-7.7) H 03/22/22 04:23 Lymph # (Auto) 1.2 10^3/uL (0.8-4.8) 03/22/22 04:23 Sutter # (Auto) 1.0 10^3/uL (0.2-0.9) H 03/22/22 04:23 Eos # (Auto) 0.1 10^3/uL (0.0-0.8) 03/22/22 04:23 Baso # (Auto) 0.1 10^3/uL (0.0-0.1) 03/22/22 04:23 Nucleated RBC % (auto) 0 % 03/22/22 04:23 Nucleated RBCs # 0.0 /100WBC 03/22/22 04:23 Sodium 136 mmol/L (136-145) 03/22/22 04:23 Potassium 5.0 mmol/L (3.5-5.1) 03/22/22 09:58 Chloride 105 mmol/L (98-107) 03/22/22 04:23 Carbon Dioxide 19 mmol/L (22-29) L 03/22/22 04:23 Anion Gap 17.6 (5-19) 03/22/22 04:23 BUN 20 mg/dL (8-23) 03/22/22 04:23 Creatinine 1.1 mg/dL (0.7-1.2) 03/22/22 04:23 GFR Calculation Not Reportable 03/22/22 04:23 Glucose 127 mg/dL (65-115) H 03/22/22 04:23 POC Glucose 204 mg/dL (70-110) H 03/22/22 11:39 Calculated Osmolality 286 mOsm/kg (285-295) 03/22/22 04:23 Calcium 8.8 mg/dL (8.5-10.5) 03/22/22 04:23 Total Bilirubin 0.2 mg/dL (0.15-1.2) 03/14/22 13:10 AST 11 U/L (0-40) 03/14/22 13:10 ALT 12 U/L (0-41) 03/14/22 13:10 Alkaline Phosphatase 88 U/L (40-130) 03/14/22 13:10 Total Protein 6.2 g/dL (6.6-8.7) L 03/14/22 13:10 Albumin 3.9 g/dL (3.5-5.2) 03/14/22 13:10 Globulin 2.3 g/dL (1.3-4.6) 03/14/22 13:10 Urine Color Yellow (Yellow) 03/14/22 13:10 Urine Appearance Clear (CLEAR) 03/14/22 13:10 Urine pH 5 (5-7) 03/14/22 13:10 Ur Specific [place] 1.020 (1.005-1.030) 03/14/22 13:10 Urine Protein Neg (Negative) 03/14/22 13:10 Urine Glucose (UA) Norm (Normal) 03/14/22 13:10 Urine Ketones Negative (Negative) 03/14/22 13:10 Urine Blood Neg (Negative) 03/14/22 13:10 Urine Nitrate Negative (Negative) 03/14/22 13:10 Urine Bilirubin Neg (Negative) 03/14/22 13:10 Urine Urobilinogen Norm mg/dL (Negative) 03/14/22 13:10 Ur Leukocyte Esterase Negative (Negative) 03/14/22 13:10 Vitals Last Vital Signs Temp 98.2 F 03/22/22 11:21 Pulse 73 03/22/22 11:21 Resp 18 03/22/22 11:21 BP 107/63 03/22/22 11:21 Pulse Ox 91 03/22/22 11:21 O2 Del Method 03/22/22 11:21 Discharge Plan Discharge Patient Disposition: Home Health Service Condition: Stable Prescriptions: New oxycodone 5 mg Tablet 5 mg PO Q4H PRN (Reason: Moderate Pain) 7 Days Qty: 30 0RF acetaminophen 500 mg Tablet 1,000 mg PO Q8H 15 Days Qty: 90 0RF aspirin 325 mg Tablet,Delayed Release (Dr/Ec) 325 mg PO DAILY 30 Days Qty: 30 0RF Continued Anoro Ellipta 62.5-25 mcg/actuation blister with device 1 inh INHALATION Q24H metformin 500 mg tablet 500 mg PO BID Lumigan 0.01 % drops 1 drop ophthalmic (eye) DAILY celecoxib 200 mg capsule 200 mg PO DAILY 90 Days Qty: 90 0RF pravastatin 40 mg tablet 40 mg PO DAILY Multivitamin 50 Plus Tablet 1 tab PO DAILY PreserVision AREDS 7,160 unit- 113 mg-100 unit Tablet 2 tab PO BID gabapentin 300 mg capsule 300 mg PO QID spironolactone 25 mg Tablet 25 mg PO DAILY lisinopril 30 mg Tablet 30 mg PO DAILY metoprolol tartrate 25 mg tablet 25 mg PO DAILY Held acetaminophen [Tylenol] 325 mg Tablet 325 mg PO QID PRN (Reason: Pain) Hold Instructions: Resume on 02/15/22. Resume after completing your greater strength of Tylenol. Discharge Orders: Discharge Order (Routine); Ordered 03/22/22 Ordered By: Carri Leslie Referrals: Carri Leslie MD [Physician] - 04/04/22 9:30 am Discharge Diet: Advance as tolerated and Usual diet Discharge Activity: Increase activity as tolerated, Limit activity as instructed and Use walker/crutches as instructed Patient Instructions: Opioid Safety Activity Restrictions/Additional Instructions: Range of motion, gait training, and strengthening per physical therapy. Keep clear plastic dressing in place until it peels up on its own. Follow-up in clinic as recommended. Elevation and ice to right lower extremity. Discharge Attestations Time Spent in Discharge Care*: greater than 30 min Status at Discharge: Cognitive status at discharge: cognitively intact, Behavioral status at discharge: cooperative, Quality Metrics Clinical Quality Measures [ No reported AMI, CVA or VTE this stay] Coding Level of Care Code Acute g FW DC note Diagnoses Primary osteoarthritis of right knee M17.11 Status post total right knee replacement not using cement Z96.651
[2022-03-22 14:42] VITALS: BP 107/63; PULSE 73; RESP 18; TEMP 36.8; O2SAT 91
== END 2022-03-22 15:17 | disposition home health service (06) ==
LOC: MEDSURG 10:42
PROVIDERS: Admitting Provider Specialist; PCP Family Medicine; Visit Provider Specialist
PROC: (CPT 27447; principal; 2022-03-21 07:00)
DX: M17.11 Unilateral primary osteoarthritis, right knee (principal); J44.9 Chronic obstructive pulmonary disease, unspecified; I48.91 Unspecified atrial fibrillation; E11.9 Type 2 diabetes mellitus without complications; Z79.84 Long term (current) use of oral hypoglycemic drugs; I10 Essential (primary) hypertension; Z98.1 Arthrodesis status; Z87.891 Personal history of nicotine dependence
CPT/HCPCS: 27447; 36415; 36416; 51702; 73562; 80048; 80053; 81003; 82962; 84132; 85025; 88304; 97110; 97116; 97161; 97165; 97530; C1713; C1776; C9290; G0378; J0690; J2370; J2704; J2795; J3370; J3490; J7030

== ENCOUNTER 2022-03-27 14:03 | Emergency (ER) | payer MEDICARE, OTHER, SELFPAY ==
[2022-03-27 14:14] VITALS: BP 142/69; PULSE 97; RESP 20; TEMP 36.7; O2SAT 95; BMI 29.0
[2022-03-27 16:36] VITALS: BP 156/56; PULSE 91; O2SAT 94
[2022-03-27 17:19] VITALS: BP 142/73; PULSE 108; RESP 21; O2SAT 95
--- NOTE | 2022-03-27 17:44 | XRR_ITS ---
PROCEDURE INFORMATION: Exam: XR Left Hip Exam date and time: 03/27/2022 5:47 PM Age: 81 years old Clinical indication: Hip pain; Left hip; Additional info: Left hip pain and inability to bear weight TECHNIQUE: Imaging protocol: Radiologic exam of the Left hip. Views: 2 or 3 views hip with pelvis when performed. COMPARISON: CR XR hip LT 2-3V wo/w pel* [id number] 05/13/2021 6:13 AM FINDINGS: Bones/joints: Unremarkable. No acute fracture. Soft tissues: Unremarkable. XR/XR hip LT 2-3V wo/w pel* [id number] IMPRESSION: No acute findings.
--- NOTE | 2022-03-27 18:14 | ED_ITS ---
HPI - Fall General: Chief Complaint: Fall Stated Complaint: LEG PAIN Time Seen by Provider: 03/27/22 17:31 Source: patient Mode of arrival: ambulatory Limitations: no limitations History of Present Illness: 81-year-old male states he had a right knee replacement on Sunday states he has been getting around with a walker he states he went to the bathroom today and fell onto the toilet he states he landed on his left buttocks he has pain to his left buttocks and left hip he states its worse when he tries to ambulate states his pain is currently a 5 out of 10 denies any other injuries denies any pain in his right knee. Associated symptoms-after fall: Denies abdominal pain, chest pain or headache(s) Review of Systems 2 Const: Denies: fever(s), chills, body aches or change in appetite Eyes: Denies: blurry vision or eye discomfort ENMT: Denies: throat pain or dental pain Card: Denies: chest pain Resp: Denies: dyspnea GI: Denies: abdominal pain, nausea, vomiting or diarrhea : Denies: dysuria Musc: Reports: extremity pain Skin/Breast: Denies: rash Neuro: Denies: headache(s) Psych: Denies: depression Rafael/Lymph: Denies: easy bruising All/Imm: Denies: urticaria PFSH ED PFSH: Medical History Atrial fibrillation COPD (chronic obstructive pulmonary disease) Diabetes mellitus Type 2 Encounter for pre-operative cardiovascular clearance Hypertension Left lumbar radiculopathy Neuropathy, idiopathic Primary osteoarthritis of right knee Spondylolisthesis at L4-L5 level Surgical History History of AAA (abdominal aortic aneurysm) repair Hx of cholecystectomy Hx of eye surgery right S/P right knee arthroscopy twice by Status post lumbar spinal fusion Encouraged him to continue walking program to be cautious with bending lifting or twisting. We will see him back in the office in 1 week's time. Continue refraining from any bending lifting or twisting. We will discontinue the Hemovac drain. Family History Denies family history of Diabetes CAD (coronary artery disease) Clotting disorder Dementia Hyperlipidemia Psychiatric illness Chronic kidney disease (CKD) Suicide Anesthesia complication Bleeding disorder Family history of premature coronary artery disease Lung disease Cancer Hypertension Stroke Social History Smoking and tobacco status: former smoker Quit status (tobacco): has quit using tobacco Year quit tobacco: 3 years ago;2017 Alcohol intake: never Physical Exam Const: COMMON NORMALS: no acute distress, patient oriented x3 and healthy appearing HENMT: COMMON NORMALS: normocephalic and atraumatic HEAD & SCALP: normocephalic and atraumatic Eye: COMMON NORMALS: Equal, round and reactive pupils present and EOMs intact bilaterally PUPIL: Yes Equal, round and reactive pupils present Neck/C-Spine: COMMON NORMALS: full ROM and supple Chest: COMMONS NORMALS: normal inspection of the chest and normal palpation of entire chest wall Resp: COMMON NORMALS: normal respiratory effort, No retractions, No use of accessory muscles and clear to auscultation bilaterally AUSCULTATION: clear to auscultation bilaterally Cardio: COMMON NORMALS: regular rate, regular rhythm and No murmurs present (Cardio) RATE: regular rate RHYTHM: regular rhythm GI: COMMON NORMALS: Normal to inspection, nondistended, normoactive bowel sounds present, Soft to palpation, non-tender and no masses PALPATION: Yes S oft to palpation Extremity: COMMON NORMALS: full ROM NARRATIVE EXTREMITY EXAM: Tenderness to left hip full range of motion no obvious deformity Neuro: COMMON NORMALS: patient oriented x3, moves all extremities and no focal motor deficits Psych: COMMON NORMALS: mental status grossly normal, Normal thought process present and cooperative THOUGHT PROCESS: Normal thought process present Skin: COMMON NORMALS: no rashes or lesions noted and no wounds GENERAL SKIN EXAM: no rashes or lesions noted Course Vital Signs: Vital signs: Vital Signs Temperature 98.1 F 03/27/22 14:14 Pulse Rate 92 03/27/22 19:14 Respiratory Rate 16 03/27/22 19:18 Blood Pressure 128/63 03/27/22 19:14 Pulse Oximetry 95 03/27/22 17:19 Oxygen Delivery Me thod 03/27/22 14:14 MDM - Fall Medical Decision Making Patient presents here with a hip contusion from a fall x-ray shows no fracture he is able to bear weight he is stable for discharge he is to follow-up with PCP and return if worsening he understands and agrees. Lab Data Radiology Impressions Hip/Pelvis X-Ray 03/27/22 17:44 IMPRESSION: No acute findings. Discharge Plan Discharge Patient Disposition: Home Clinical Impression: Contusion of left hip Fall Qualifiers: Encounter type: initial encounter Qualified Code(s): W19.XXXA - Unspecified fall, initial encounter Condition: Stable Prescriptions: New hydrocodone-acetaminophen 5-325 mg tablet 1 tab PO Q6H PRN (Reason: pain) Qty: 14 0RF No Action Anoro Ellipta 62.5-25 mcg/actuation blister with device 1 inh INHALATION Q24H metformin 500 mg tablet 500 mg PO BID Lumigan 0.01 % drops 1 drop ophthalmic (eye) BEDTIME celecoxib 200 mg capsule 200 mg PO DAILY 90 Days Qty: 90 0RF acetaminophen [Tylenol] 325 mg Tablet 325 mg PO QID PRN (Reason: Pain) Hold Instructions: Resume on 04/19/22. pravastatin 40 mg tablet 40 mg PO BEDTIME Multivitamin 50 Plus Tablet 1 tab PO DAILY PreserVision AREDS 7,160 unit- 113 mg-100 unit Tablet 2 tab PO BID gabapentin 300 mg capsule 300 mg PO QID lisinopril 30 mg Tablet 30 mg PO DAILY minocycline 100 mg capsule 100 mg PO DAILY metoprolol tartrate 25 mg tablet 25 mg PO DAILY acetaminophen 500 mg Tablet 1,000 mg PO Q8H 15 Days Qty: 90 0RF aspirin 325 mg Tablet,Delayed Release (Dr/Ec) 325 mg PO DAILY 30 Days Qty: 30 0RF oxycodone 5 mg Tablet 5 mg PO Q4H PRN (Reason: Moderate Pain) 7 Days Qty: 30 0RF Discharge Orders: Discharge ED (Routine); Ordered 03/27/22 Ordered By: Artis Bejarano Referrals: Mil Veronica MD [Primary Care Provider] - Discharge Diet: Advance as tolerated Discharge Activity: Resume usual activity Patient Instructions: Contusion in Adults (ED), Fall Prevention (ED), Opioid Safety Coding Level of Care Code ED Sap Bpc Developer for Lloyd Fwclarence Exam Comprehensive
--- NOTE | 2022-03-27 19:13 | PC.NURSE ---
Report from REJI Stanton. Pt sitting in bed waiting for pain shot and ready for DC.
[2022-03-27 19:14] VITALS: BP 128/63; PULSE 92; RESP 18
[2022-03-27 19:18] VITALS: RESP 16
[2022-03-27] MEDS: morphine 4 mg/mL SDV 1 mL IM (19:18)
[2022-03-27 19:48] VITALS: BP 146/78; PULSE 79; RESP 16; O2SAT 97
== END 2022-03-27 19:53 | disposition home or self-care (01) ==
PROVIDERS: Emergency Provider Emergency Medicine; PCP Family Medicine
DX: S70.02XA Contusion of left hip, initial encounter (principal); W18.39XA Other fall on same level, initial encounter; Z79.84 Long term (current) use of oral hypoglycemic drugs; Z79.82 Long term (current) use of aspirin; Z87.891 Personal history of nicotine dependence; J44.9 Chronic obstructive pulmonary disease, unspecified; E11.9 Type 2 diabetes mellitus without complications; I10 Essential (primary) hypertension
CPT/HCPCS: 73502; 96372; 99284; J2270

== ENCOUNTER → 2022-04-04 09:17 | Outpatient (BNVA) | payer MEDICARE, OTHER, SELFPAY | PROVIDERS: PCP Family Medicine; Visit Provider Nurse Practitioner Family | DX: Z96.651 Presence of right artificial knee joint (principal) | CPT/HCPCS: 73560; 73565; 99024 ==

== ENCOUNTER → 2022-05-02 10:49 | Outpatient (BNVA) | payer MEDICARE, OTHER, SELFPAY | PROVIDERS: PCP Family Medicine; Visit Provider Nurse Practitioner Family | DX: Z96.651 Presence of right artificial knee joint (principal) | CPT/HCPCS: 73560; 73565; 99024 ==

== ENCOUNTER → 2022-05-24 10:59 | Outpatient (BNVA) | payer MEDICARE, OTHER, SELFPAY | PROVIDERS: PCP Family Medicine; Visit Provider Family Medicine | DX: I48.0 Paroxysmal atrial fibrillation (principal); E11.9 Type 2 diabetes mellitus without complications; I71.40 Abdominal aortic aneurysm, without rupture, unspecified; I48.91 Unspecified atrial fibrillation | CPT/HCPCS: 80053; 80061; 83036; 85025 ==

== ENCOUNTER 2022-07-04 09:52 | Outpatient (CLI) | payer MEDICARE, OTHER, SELFPAY ==
--- NOTE | 2022-07-04 10:00 | CT_ITS ---
WS: [id number] CT ANGIOGRAPHY OF THE ABDOMINAL AORTA WITH RUNOFF TO THE ANKLES HISTORY: AAA, status post endovascular graft repair abdominal aortic aneurysm. TECHNIQUE: Arterial injection is performed during imaging to evaluate the aorta and runoff vessels to the ankles. MIP and volume rendering imaging has also been performed. All images are reviewed. All C T scans at [facility] use at least one of these dose optimization techniques: automated exposu re control; mA and/or kV adjustment per patient size (includes targeted exams where dose is matched t o clinical indication); or iterative reconstruction. Contrast: Omnipaque 350; 95 mL IV. DLP: 711.99 mGy.cm COMPARISON: 04/26/2016 Chronic emphysema at the lung bases. Minimal bilateral areas of subsegmental atelectasis. Normal size heart. Small hiatal hernia. Endovascular graft extends from just below the level of the renal arteries with bilateral iliac montse ry stents. [place] aneurysm has decreased in size now measuring 3.2 cm. There is good contrast injecti on and opacification of the abdominal aorta through the endovascular graft into the iliac arteries. N o endovascular leak identified. Iliac arteries are patent. Moderate stenosis involving the origin of celiac axis and SMA. There is still good opacification of the arteries. Additional calcifications ext end into the more distal SMA. Mild stenosis involving the origin of the renal arteries. RIGHT lower extremity arterial system: RIGHT common iliac artery stent is patent. Moderate calcificat ion throughout the RIGHT internal iliac artery. Superficial femoral artery and the deep profunda are both patent. Multifocal areas of stenosis without occlusion through the SFA. At least 50% stenosis at multiple levels in the proximal to mid SFA. At least 60% stenosis proximal SFA. Popliteal artery is significantly obscured by artifact from the knee prosthesis. Additional stenoses in Zana's canal an d 50-60%. Three-vessel runoff to the ankle with mild atherosclerotic disease. Study limited by motion artifact. LEFT lower extremity arterial system: LEFT common, internal and external iliac arteries are patent wi th scattered plaque. 50% stenosis distal external iliac artery. 50% stenosis common femoral artery. D iffuse scattered plaque throughout the SFA and deep profunda. Multifocal areas of stenosis. Most sign ificant stenosis 60% distal SFA just proximal to Zana's canal. Additional 50-60% stenoses throughou t Zana's canal. Popliteal artery is obscured by artifact on the knee prosthesis. Calcified plaque a t the tibioperoneal bifurcation. There is small caliber but three-vessel runoff to the ankle. No occl usions. Anterior tibial artery becomes very small. Liver, spleen, pancreas, adrenals and kidneys are unremarkable for acute process. Prior cholecystecto my. No adenopathy or ascites. Stomach and small bowel are unremarkable. Appendix is normal. Sigmoid diverticular disease. Urinary b ladder is negative. Minimal prostate enlargement. Prior posterior lumbar fusion at L4-5. Biconcave fr acture L1 with retropulsion by 3 mm. Similar to the study from 2016. CT/CT angio abd aorta runof [id number] IMPRESSION: 1. Status post abdominal aortic endograft repair with biiliac artery extension s. No endovascular leak in the [place] aneurysm is contracted around the graft. 2. Multifocal areas of [id number] stenosis throughout the external iliac arteries and superficial femoral arteries. Highest stenosis on the RIGHT 60% i n the proximal SFA. Highest stenosis on the LEFT 60% distal SFA and through Hun ter's canal. 3. Popliteal arteries cannot be evaluated due to the significant artifact from bilateral knee prostheses. 4. Small vessel runoff to the ankles beginning below the knees. LEFT anterior tibial artery becomes small distally. 5. Prior cholecystectomy.
[2022-07-04] MEDS: iohexol 350 mg/mL 500 mL Btl (per mL) IV (12:09)
== END 2022-07-04 09:53 | disposition home or self-care (01) ==
LOC: RAD 09:52
PROVIDERS: PCP Family Medicine; Visit Provider Family Medicine
DX: I71.40 Abdominal aortic aneurysm, without rupture, unspecified (principal)
CPT/HCPCS: 75635; Q9967

== ENCOUNTER → 2022-08-01 09:23 | Outpatient (BNVA) | payer MEDICARE, OTHER, SELFPAY | PROVIDERS: PCP Family Medicine; Visit Provider Nurse Practitioner Family | DX: Z96.653 Presence of artificial knee joint, bilateral (principal) | CPT/HCPCS: 73560; 73565; 99213 ==

== ENCOUNTER → 2022-08-15 13:17 | Outpatient (BNVA) | payer MEDICARE, OTHER, SELFPAY | PROVIDERS: PCP Family Medicine; Visit Provider Physician Assistant | DX: Z98.1 Arthrodesis status (principal); Z48.89 Encounter for other specified surgical aftercare | CPT/HCPCS: 72100; 99213 ==

== ENCOUNTER → 2023-01-24 11:18 | Outpatient (BNVA) | payer MEDICARE, OTHER, SELFPAY | PROVIDERS: PCP Family Medicine; Visit Provider Family Medicine | DX: R06.00 Dyspnea, unspecified (principal) | CPT/HCPCS: 80053; 83880; 85025; 85379 ==

== ENCOUNTER 2023-01-25 09:57 | Outpatient (CLI) | payer MEDICARE, OTHER, SELFPAY ==
--- NOTE | 2023-01-25 09:59 | XR_ITS ---
WS: [id number] Exam: XR chest 2V* [id number] Date/Time of Exam: 01/25/2023 10:10 AM Reason For Exam: dyspnea Comparison 05/13/2021. The lungs are clear and fully expanded. Normal cardiomediastinal silhouette. Regional bony elements a re intact. DJD of both shoulders. XR/XR chest 2V* [id number] IMPRESSION: 1. No acute cardiopulmonary process.
== END 2023-01-25 09:58 | disposition home or self-care (01) ==
PROVIDERS: PCP Family Medicine; Visit Provider Family Medicine
DX: R06.00 Dyspnea, unspecified (principal)
CPT/HCPCS: 71046

== ENCOUNTER → 2023-03-07 09:50 | Outpatient (BNVA) | payer MEDICARE, OTHER, SELFPAY | PROVIDERS: PCP Family Medicine; Visit Provider Nurse Practitioner Family | DX: Z96.651 Presence of right artificial knee joint (principal) | CPT/HCPCS: 73560; 73565; 99213 ==

== ENCOUNTER → 2023-07-26 08:00 | Outpatient (BNVA) | payer MEDICARE, OTHER, SELFPAY | PROVIDERS: PCP Family Medicine; Visit Provider Family Medicine | DX: E11.9 Type 2 diabetes mellitus without complications (principal); R06.00 Dyspnea, unspecified; I48.91 Unspecified atrial fibrillation | CPT/HCPCS: 80053; 80061; 83036; 83721; 85025 ==

== ENCOUNTER → 2023-08-16 08:05 | Outpatient (BNVA) | payer MEDICARE, OTHER, SELFPAY | PROVIDERS: PCP Family Medicine; Visit Provider Family Medicine | DX: E11.9 Type 2 diabetes mellitus without complications (principal) | CPT/HCPCS: 80048; 80053; 83036 ==

== ENCOUNTER → 2023-08-21 10:05 | Outpatient (BNVA) | payer MEDICARE, OTHER, SELFPAY | PROVIDERS: PCP Family Medicine; Visit Provider Orthopaedic Surgery | DX: M54.50 Low back pain, unspecified (principal); Z98.1 Arthrodesis status | CPT/HCPCS: 72100; 99214 ==

== ENCOUNTER 2023-10-02 10:38 | Outpatient (CLI) | payer MEDICARE, OTHER, SELFPAY ==
--- NOTE | 2023-10-02 11:00 | MR_ITS ---
WS: [id number] MRI LUMBAR SPINE NONCONTRAST HISTORY: low back pain COMPARISON: 05/14/2021 TECHNIQUE: Sagittal and axial multisequence imaging is submitted. Severe degenerative cervical and thoracic scoliosis and spondylosis. Disc bases are narrowed. Compone nt of cervical and thoracic stenosis is evident on the localizer. No significant stenosis in the cerv ical spine. L2 retrolisthesis by 4 mm. Reidentified is a biconcave H-shaped fracture at L1 with posterior bowing of the vertebral body by 5 mm. No acute fractures or marrow edema. Disc spaces are all narrowed and desiccated. Conus terminates normally at L1-2 disc level. Posterior lumbar fusion at L4-5. L1-L2: Mild annular disc bulging. Bilateral facet arthritis, LEFT greater than RIGHT. No central sten osis. Mild LEFT subarticular recess and moderate bilateral foraminal stenosis due to disc and osteoph yte disease. L2-L3: Diffuse annular disc bulging, osteophytic ridging and facet arthritis. Disc asymmetrically ext ends to the LEFT foramen. No central stenosis. Mild subarticular recess encroachment. Severe bilatera l foraminal stenosis predominantly due to osteophytes. L3-L4: Diffuse annular disc bulging with marked ligamentum flavum hypertrophy. Disc encroachment upon the ventral thecal sac and subarticular recesses. Mild RIGHT and moderate LEFT foraminal stenosis. M ild central and subarticular recess encroachment. L4-L5: Diffuse annular disc bulging. Large osteophytic ridge along the posterior RIGHT lateral thecal sac this may be part of bone graft. Thecal sac is widely patent. Posterior large laminectomy defect. Mild foraminal narrowing. L5-S1: Diffuse annular disc bulging. Mild osteophytic ridging. Bilateral facet joint arthritis. There is mild disc contacting the S1 nerve roots. Moderate to severe bilateral foraminal stenosis with enc roachment also upon the L5 nerve roots. Progression of stenosis since 2020. Ectatic abdominal aorta measuring up to 3.2 cm. IMPRESSION: 1. Status post posterior lumbar fusion at L4-5 with a large laminectomy defect. 2. L5-S1: Moderate to severe bilateral foraminal stenosis with mild narrowing of the subarticular re cesses. There is significant encroachment upon the L5 and S1 nerve roots. 3. L1-2: Mild LEFT subarticular recess and moderate bilateral foraminal stenosis due to disc and ost eophyte disease. 4. L2-3: Mild bilateral subarticular recess with severe bilateral foraminal stenosis due to osteophy frannie and facet disease. 5. L3-4: Mild central, bilateral subarticular recess and RIGHT foraminal stenosis. Moderate LEFT for aminal stenosis. 6. L4-5: There is a large osteophytic ridge along the posterior RIGHT lateral thecal sac which may b e part of bone graft material. Mild bilateral foraminal narrowing. 7. Severe advanced cervical and thoracic scoliosis with multiple areas of stenosis.
== END 2023-10-02 10:39 | disposition home or self-care (01) ==
PROVIDERS: PCP Family Medicine; Visit Provider Orthopaedic Surgery
DX: M96.1 Postlaminectomy syndrome, not elsewhere classified (principal); Z98.1 Arthrodesis status; M48.07 Spinal stenosis, lumbosacral region; M25.78 Osteophyte, vertebrae; M41.9 Scoliosis, unspecified; M48.03 Spinal stenosis, cervicothoracic region
CPT/HCPCS: 72148

== ENCOUNTER → 2023-10-18 13:52 | Outpatient (BNVA) | payer MEDICARE, OTHER, SELFPAY | PROVIDERS: PCP Family Medicine; Visit Provider Orthopaedic Surgery | DX: M54.9 Dorsalgia, unspecified (principal); M51.36 Other intervertebral disc degeneration, lumbar region | CPT/HCPCS: 99214 ==

== ENCOUNTER → 2023-11-09 07:55 | Outpatient (BNVA) | payer MEDICARE, OTHER, SELFPAY | PROVIDERS: PCP Family Medicine; Visit Provider Family Medicine | DX: E11.22 Type 2 diabetes mellitus with diabetic chronic kidney disease (principal); I12.9 Hypertensive chronic kidney disease with stage 1 through stage 4 chronic kidney disease, or unspecified chronic kidney disease; N18.9 Chronic kidney disease, unspecified; I48.0 Paroxysmal atrial fibrillation | CPT/HCPCS: 80053; 80061; 83036; 85025 ==

== ENCOUNTER → 2024-05-13 11:39 | Outpatient (BNVA) | payer MEDICARE, OTHER, SELFPAY | PROVIDERS: PCP Family Medicine; Visit Provider Family Medicine | DX: E11.9 Type 2 diabetes mellitus without complications (principal); I48.0 Paroxysmal atrial fibrillation; I48.91 Unspecified atrial fibrillation | CPT/HCPCS: 80053; 80061; 83036 ==

== ENCOUNTER → 2024-05-29 11:19 | Outpatient (BNVA) | payer MEDICARE, OTHER, SELFPAY | PROVIDERS: PCP Family Medicine; Visit Provider Podiatrist Foot & Ankle Surgery | DX: L60.3 Nail dystrophy (principal); G62.9 Polyneuropathy, unspecified; E11.42 Type 2 diabetes mellitus with diabetic polyneuropathy | CPT/HCPCS: 11721; 99203 ==

== ENCOUNTER → 2024-08-07 11:00 | Outpatient (BNVA) | payer MEDICARE, OTHER, SELFPAY | PROVIDERS: PCP Family Medicine; Visit Provider Podiatrist Foot & Ankle Surgery | DX: L60.3 Nail dystrophy (principal); G62.9 Polyneuropathy, unspecified; E11.42 Type 2 diabetes mellitus with diabetic polyneuropathy | CPT/HCPCS: 11721 ==

== ENCOUNTER → 2024-10-08 09:56 | Outpatient (BNVA) | payer MEDICARE, OTHER, SELFPAY | PROVIDERS: PCP Family Medicine; Visit Provider Podiatrist Foot & Ankle Surgery | DX: E11.42 Type 2 diabetes mellitus with diabetic polyneuropathy (principal); L60.3 Nail dystrophy; G62.9 Polyneuropathy, unspecified | CPT/HCPCS: 11721 ==

== ENCOUNTER 2024-12-10 12:54 | Outpatient (CLI) | payer MEDICARE, OTHER, SELFPAY ==
--- NOTE | 2024-12-10 13:15 | CTR_ITS ---
PROCEDURE INFORMATION: Exam: CT Chest Without Contrast; Diagnostic Exam date and time: 12/10/2024 1:07 PM Age: 84 years old Clinical indication: Dyspnea TECHNIQUE: Imaging protocol: Diagnostic computed tomography of the chest without contrast. Radiation optimization: All CT scans at this facility use at least one of these dose optimization techniques: automated exposure control; mA and/or kV adjustment per patient size (includes targeted exams where dose is matched to clinical indication); or iterative reconstruction. COMPARISON: CT angio chest PE protcl [id number] 05/13/2021 8:19 AM RADIATION DOSE METRICS: Total DLP (mGy-cm): 515.19 FINDINGS: Lungs: No infiltrates or lobar consolidation. Emphysema. Pleural spaces: No pleural effusions or pneumothorax. Heart: Heart size within normal limits. No pericardial effusions. Coronary arteries: Atherosclerotic coronary artery calcifications. Lymph nodes: Unremarkable. No enlarged lymph nodes. Vasculature: Atherosclerotic calcifications of the thoracic aorta without aneurysmal dilatation. Bones/joints: No significant focal osseous lesions. Chronic appearing compression deformity of the L1 vertebral body. Soft tissues: Unremarkable. CT/CT chest [facility] [id number] IMPRESSION: 1. No acute findings in the chest. 2. Emphysema.
== END 2024-12-10 12:55 | disposition home or self-care (01) ==
PROVIDERS: PCP Family Medicine; Visit Provider Family Medicine
DX: R09.02 Hypoxemia (principal); R06.00 Dyspnea, unspecified; J43.9 Emphysema, unspecified; I25.10 Atherosclerotic heart disease of native coronary artery without angina pectoris; I70.0 Atherosclerosis of aorta; M48.56XD Collapsed vertebra, not elsewhere classified, lumbar region, subsequent encounter for fracture with routine healing
CPT/HCPCS: 71250

== ENCOUNTER → 2024-12-17 11:25 | Outpatient (BNVA) | payer MEDICARE, OTHER, SELFPAY | PROVIDERS: PCP Family Medicine; Visit Provider Podiatrist Foot & Ankle Surgery | DX: E11.42 Type 2 diabetes mellitus with diabetic polyneuropathy (principal); L60.3 Nail dystrophy; G62.9 Polyneuropathy, unspecified; B35.3 Tinea pedis | CPT/HCPCS: 11721; 99213 ==

== ENCOUNTER → 2025-03-10 13:15 | Outpatient (BNVA) | payer MEDICARE, OTHER, SELFPAY | PROVIDERS: PCP Family Medicine; Visit Provider Podiatrist Foot & Ankle Surgery | DX: E11.9 Type 2 diabetes mellitus without complications (principal); I48.0 Paroxysmal atrial fibrillation; R06.00 Dyspnea, unspecified; J44.9 Chronic obstructive pulmonary disease, unspecified | CPT/HCPCS: 80053; 80061; 83036; 83721; 83880; 85025 ==

== ENCOUNTER 2025-04-24 12:40 | Outpatient (CLI) | payer MEDICARE, OTHER, SELFPAY ==
[2025-04-24 14:37] LABS: Hematocrit 45.7 % (37-53); Hemoglobin 13.40 g/dL (11.27-16.99); Mean Corpuscular HGB Conc 29.3 g/dL (30-55); Mean Corpuscular Hemoglobin 23.0 pg (27-33); Mean Corpuscular Volume 78.5 fl (82-101); Nucleated Red Blood Cells % 0 %; Platelet Count 185 10^3/cmm (157-399); Red Blood Count 5.82 10^6/uL (3.85-5.65); White Blood Count 8.50 10^3/uL (3.29-11.43)
[2025-04-24 15:28] LABS: Rapid Plasma Reagin Syphilis Nonreactive (Nonreactive)
== END 2025-04-24 12:41 | disposition home or self-care (01) ==
LOC: LAB 12:43
PROVIDERS: PCP Family Medicine; Visit Provider Student in an Organized Health Care Education/Training Program
DX: H15.0 Scleritis (principal)
CPT/HCPCS: 36415; 82164; 85025; 85651; 86036; 86140; 86225; 86431; 86592

== ENCOUNTER → 2025-05-21 13:53 | Outpatient (BNVA) | payer MEDICARE, OTHER, SELFPAY | PROVIDERS: PCP Family Medicine; Visit Provider Podiatrist Foot & Ankle Surgery | DX: L60.3 Nail dystrophy (principal); G62.9 Polyneuropathy, unspecified; E11.42 Type 2 diabetes mellitus with diabetic polyneuropathy | CPT/HCPCS: 99213 ==

== ENCOUNTER → 2025-07-13 13:37 | Outpatient (BNVA) | payer MEDICARE, OTHER, SELFPAY | PROVIDERS: PCP Family Medicine; Visit Provider Family Medicine | DX: E11.9 Type 2 diabetes mellitus without complications (principal); I48.0 Paroxysmal atrial fibrillation; R60.9 Edema, unspecified | CPT/HCPCS: 80048; 83036; 85025 ==